=== PATIENT | male | born 1955 | race African-American/Black ===

== ENCOUNTER 2017-01-08 21:07 | Inpatient (IN) | payer SELFPAY ==
[~2017-01-08] VITALS: Ht 172.7 cm; Wt 61.0 kg
[~2017-01-08 21:07] MED LIST: TYLE3 PO; Z.0.NO CURRENT MEDS
[2017-01-08 21:12] VITALS: BP 112/64; PULSE 91; RESP 16; TEMP 99.1; O2SAT 96
--- NOTE | 2017-01-08 22:36 | PD ---
Physical Exam Time Seen by Provider: 22:36 Narrative 61 yo male with dysuria, "creamy discharge" from the urethra, increased urinary frequency, lower abdominal pain for one month. Vital signs reviewed. Seen at triage desk. Awaiting bed placement. Data Data Last Documented VS Vital Signs Date Time Temp Pulse Resp B/P Pulse Ox O2 Delivery O2 Flow Rate FiO2 01/08/17 21:12 99.1 91 16 112/64 96 Room Air [facility] Medical Record Reviewed: Yes Supervised Visit with SHAUNA: Jim Brown Jan 08, 2017 22:36
[2017-01-08 23:05] VITALS: BP 126/68; PULSE 92; RESP 18; O2SAT 94
[2017-01-09] VITALS (7 sets, daily range): BP systolic 119–135; BP diastolic 71–98; PULSE 84–96; RESP 18–20; TEMP 97.3–100.4; O2SAT 92–98
[2017-01-09 02:19] LABS: AUTOMATED NEUTROPHIL # 19.2 TH/MM3 (1.8-7.7); BASOPHIL # 0.1 TH/MM3 (0-0.2); BASOPHIL % 0.5 % (0.0-2.0); EOSINOPHIL % 0.2 % (0.0-4.0); HEMATOCRIT 35.7 % (39.0-51.0); HEMO FLAGS DIFF FINAL; LYMPH % 9.3 % (9.0-44.0); LYMPHOCYTE # 2.1 TH/MM3 (1.0-4.8); MEAN CORPUSCULAR HGB CONC 33.3 % (32.0-36.0); MONO % 5.1 % (0.0-8.0); NEUT % 84.9 % (16.0-70.0); PLATELET COUNT 625 TH/MM3 (150-450); RED BLOOD COUNT 3.72 MIL/MM3 (4.50-5.90); RED CELL DISTRIBUTION WIDTH 13.8 % (11.6-17.2); WHITE BLOOD COUNT 22.6 TH/MM3 (4.0-11.0)
[2017-01-09 02:39] LABS: ALKALINE PHOSPHATASE 90 U/L (45-117); TOTAL BILIRUBIN ADULT 0.9 MG/DL (0.2-1.0)
[2017-01-09 03:02] LABS: ALT (GPT) 14 U/L (12-78); ANION GAP 10 MEQ/L (5-15); AST (GOT) 17 U/L (15-37); BICARBONATE 26.2 MEQ/L (21.0-32.0); BLOOD UREA NITROGEN 31 MG/DL (7-18); CHLORIDE 96 MEQ/L (98-107); GLOMERULAR FILTRATION RATE 51 ML/MIN (>89); POTASSIUM 3.5 MEQ/L (3.5-5.1); SODIUM (NA) 132 MEQ/L (136-145)
[2017-01-09] MEDS ORDERED: IOHEXOL 350 MG/ML 10 ML VIAL (for RAD DIAG) IV ONE (03:50)
--- NOTE | 2017-01-09 04:03 | RADRPT ---
EXAM DATE/TIME: 01/09/2017 03:38 [facility] COMPARISON: No previous studies available for comparison. INDICATIONS : Left lower quadrant pain while urinating with penile discharge IV CONTRAST: 100 cc Omnipaque 350 (iohexol) IV ORAL CONTRAST: No oral contrast ingested. RADIATION DOSE: 9.96 CTDIvol (mGy) MEDICAL HISTORY : None SURGICAL HISTORY : None. ENCOUNTER: Initial ACUITY: 1 month PAIN SCALE: 9/10 LOCATION: Left lower quadrant abdomen TECHNIQUE: Volumetric scanning of the abdomen and pelvis was performed. Using automated exposure control and ad justment of the mA and/or kV according to patient size, radiation dose was kept as low as reasonably achievable to obtain optimal diagnostic quality images. DICOM format image data is available electro nically for review and comparison. FINDINGS: Mild lower lobe interstitial fibrotic changes. There are degenerative changes of the spine noted. Ath erosclerotic calcifications of the coronary arteries and aorta identified. There is severe hydronephr osis of both kidneys and hydroureter identified. The urinary bladder is markedly abnormal, distended with multiple diverticula and markedly trabeculated thick walled appearance. The largest diverticulum is on the right measuring 10.5 cm in cephalocaudal dimension with a 9.8 mm neck. The prostate is abn ormal, diffusely heterogeneous and enlarged measuring 5.6 x 4.4 cm in transverse and AP dimension. Th e small and large bowel are unremarkable. In the left upper quadrant there is a circumscribed hypoden se mass measuring 10.1 x 5.8 cm in transverse and AP dimension on axial image 26 measuring 38 Hounsfi eld units. This is noted just superior to the pancreas and demonstrating slight mass effect on the le sser curvature of the stomach. Coronal images suggest this is of pancreatic origin on coronal image 3 7. There are peripheral tiny calcifications noted. No obvious internal septations. The liver demonstr ates a low density lesion on image 34 with peripheral nodular enhancement. This measures 1.3 cm. CONCLUSION: 1. Severe hydronephrosis and hydroureter with a markedly abnormal heterogeneous thick walled trabecul ated urinary bladder. It is difficult to exclude a bladder malignancy given the markedly heterogeneou s appearance. For example a prominent area of thick trabeculated bladder wall is noted superiorly see n best on axial image 52 where a 5.3 x 4.6 cm masslike area is noted. 2. Extensive atherosclerotic disease. 3. Prominent heterogeneous prostate. 4. 5. Indeterminate cystic-appearing mass of the upper abdomen appears to arise from the pancreas with e xtrapancreatic component suggesting a large mildly complex cyst. There is some peripheral punctate ca lcification. Surgery should be considered for asymptomatic pancreatic cysts >3 cm, generally subsequ ent to aspiration. If the lesion is a cystadenoma, surgery is deferred until the cyst is > 4 cm. So lid pseudopapillary epithelial neoplasm tumors should be resected. Patient factors ultimately determ ine the appropriateness of surgical treatment. Reference: 6. [place] LL, Jolanta SG, Neftali RM et al; Managing Incidental Findings on Abdominal CT: Benedicto alcantara of the ACR Incidental Findings Committee. J Am Min Radiol 2010;7:754-773. Bienvenido Shaikh MD on January 09, 2017 at 3:53 Board Certified Radiologist. This report was verified electronically.
[2017-01-09 04:51] LABS: BACTERIA, URINE MANY /hpf; BLOOD, URINE MOD (NEG); COMMENT (UR) CULTURE INDICATED; CULTURE IF INDICATED CULTURE INDICATED; GLUCOSE,URINE NEG (NEG); KETONE, URINE NEG (NEG); MUCUS URINE MANY /lpf (OCC); NITRITE,URINE NEG (NEG); URINE COLOR YELLOW (YELLW/STRAW)
--- NOTE | 2017-01-09 04:56 | PD ---
HPI Chief Complaint: Complaint Time Seen by Provider: 02:03 Travel History International Travel<30 days: No Contact w/Intl Traveler<30days: No Traveled to known affect area: No History of Present Illness HPI Is a 61-year-old man, denies any past medical history, presents to the emergency department complaining with pain with urination for the past month, creamy discharge from his urethra, weight loss, chills and lower abdominal pain. Symptoms been worsening over the past day or so. He states he has to bear down to urinate. History Past Medical History Medical History: Denies Significant Hx Tetanus Vaccination: < 5 Years Influenza Vaccination: No Social History Alcohol Use: Yes (8 pack a day) Tobacco Use: Yes (1 PPD FOR 30 YEARS) Allergies-Medications (Allergen,Severity, Reaction): Coded Allergies: No Known Allergies (Verified , 01/09/17) Reported Meds & Prescriptions Reported Meds & Active Scripts Active No Active Prescriptions or Reported Medications Review of Systems Except as stated in HPI: all other systems reviewed are Neg Physical Exam Narrative GENERAL: 61-year-old man, thin, appears uncomfortable but nontoxic. SKIN: Focused skin assessment warm/dry. NECK: Trachea midline. No JVD. CARDIOVASCULAR: Regular rate and rhythm. No murmur appreciated. RESPIRATORY: No accessory muscle use. Clear to auscultation. Breath sounds equal bilaterally. GASTROINTESTINAL: Abdomen scaphoid and soft. Is palpable fullness in the lower abdomen with a palpable mass, possible urinary distention. MUSCULOSKELETAL: No obvious deformities. Decreased muscle bulk. No edema. PSYCHIATRIC: Appropriate mood and affect; insight and judgment normal. Data Data Last Documented VS Vital Signs Date Time Temp Pulse Resp B/P Pulse Ox O2 Delivery O2 Flow Rate FiO2 01/09/17 01:53 98 Room Air 01/08/17 21:12 99.1 91 16 112/64 Orders Urinalysis - C+S If Indicated (01/09/17 01:44) Complete Blood Count With Diff (01/09/17 01:44) Comprehensive Metabolic Panel (01/09/17 01:44) Iv Access Insert/Monitor (01/09/17 01:44) Oxygen Administration (01/09/17 01:44) Oximetry (01/09/17 01:44) Lipase (01/09/17 01:44) Ed Poc Ultrasound (01/09/17 ) Iv Access Insert/Monitor (01/09/17 03:05) Ct Abd/Pel W Iv Contrast(Rout) (01/09/17 ) Urinary Catheter Insert/Apply (01/09/17 03:12) Iohexol 350 Inj (Omnipaque 350 Inj) (01/09/17 03:50) Labs Laboratory Tests Test 01/09/17 01:50 White Blood Count 22.6 TH/MM3 Red Blood Count 3.72 MIL/MM3 Hemoglobin 11.9 GM/DL Hematocrit 35.7 % Mean Corpuscular Volume 96.0 FL Mean Corpuscular Hemoglobin 32.0 PG Mean Corpuscular Hemoglobin 33.3 % Concent Red Cell Distribution Width 13.8 % Platelet Count 625 TH/MM3 Mean Platelet Volume 8.4 FL Neutrophils (%) (Auto) 84.9 % Lymphocytes (%) (Auto) 9.3 % Monocytes (%) (Auto) 5.1 % Eosinophils (%) (Auto) 0.2 % Basophils (%) (Auto) 0.5 % Neutrophils # (Auto) 19.2 TH/MM3 Lymphocytes # (Auto) 2.1 TH/MM3 Monocytes # (Auto) 1.2 TH/MM3 Eosinophils # (Auto) 0.0 TH/MM3 Basophils # (Auto) 0.1 TH/MM3 CBC Comment DIFF FINAL Differential Comment Sodium Level 132 MEQ/L Potassium Level 3.5 MEQ/L Chloride Level 96 MEQ/L Carbon Dioxide Level 26.2 MEQ/L Anion Gap 10 MEQ/L Blood Urea Nitrogen 31 MG/DL Creatinine 1.67 MG/DL Estimat Glomerular Filtration 51 ML/MIN Rate Random Glucose 158 MG/DL Calcium Level 9.5 MG/DL Total Bilirubin 0.9 MG/DL Aspartate Amino Transf 17 U/L (AST/SGOT) Alanine Aminotransferase 14 U/L (ALT/SGPT) Alkaline Phosphatase 90 U/L Total Protein 10.1 GM/DL Albumin 3.4 GM/DL Lipase 155 U/L [facility] Medical Decision Making Medical Screen Exam Complete: Yes Emergency Medical Condition: Yes Interpretation(s) LABS: CBC is remarkable for white count 22,000, hemoglobin 11.9 CMP is remarkable for elevated BUN/creatinine 31, 1.67, total protein 7.1 Lipase is [address]: Severe hydronephrosis and hydroureter with markedly abnormal heterogenous thick-walled trabeculated urinary bladder. Mass area in the superior aspect. Prominent heterogenous prostate. Cystic mass in the upper abdomen appears to rest of the pancreas Differential Diagnosis Urinary retention, infection, mass, other Narrative Course Medical decision making 61-year-old man, with constitutional symptoms going weight loss or night sweats , with bladder difficulties. On point of care ultrasound [id number] son the bladder is markedly abnormal with septations and thickened pimentel. This confirmed on CT scan. He also has hydronephrosis. Is able to void in the ED but still is obviously some element of retention. We are unable to pass a Cortes catheter. I spoke with Dr. Carrera, urology, and the patient can be evaluated minimal in the morning. Patient resting comfortably in bed. Procedures Procedure Narrative Point of care ultrasound: Focus transabdominal ultrasounds perform immediate the bedside to evaluate for urinary distention. Large urinary bladder was seen with markedly abnormal appearance of the bladder with septations, and thickened wall. Diagnosis Primary Impression: Bladder mass Additional Impression: Urinary retention Scripts No Active Prescriptions or Reported Meds Jonh Phillips MD Jan 09, 2017 04:56
[2017-01-09] MEDS ORDERED: cefTRIAXone INJ 1,000 MG in SODIUM CHLORIDE 0.9% INJ 100 ML IV ONE (05:00)
[2017-01-09] MEDS ORDERED: NALOXONE HCL 0.4 MG/ML AMP IV PRN (05:00)
[2017-01-09] MEDS ORDERED: SODIUM CHLORIDE 0.9% FLUSH 10 ML FLUSH IV FLUSH PRN (05:00)
--- NOTE | 2017-01-09 05:04 | HHI.HP ---
[facility] Primary Care Physician Admission Diagnosis bladder mass, urinary retention Diagnoses: (1) Bladder mass (2) Urinary retention Chief Complaint: suprapubic pain, hematuria Travel History International Travel<30 Days: No Contact w/Intl Traveler <30 Da: No Traveled to Known Affected Are: No History of Present Illness Written by Lexi Otoole, acting as scribe for Dr. Castellanos on 01/09/17 at 05:06. Patient reports severe suprapubic pain that has been present for one month which progressively worsened. He reports milky discharge from penis and hematuria. He has also been experiencing shortness of breath, intermittent dizziness, he has lost 50 lbs in the past 3 - 4 months with loss of appetite, and odynophagia. Denies n/v/diarrhea, black or red stool. Review of Systems Except as stated in HPI: all other systems reviewed are Neg Past Family Social History Past Medical History Denies any medical problems . Past Surgical History right shoulder repair . Reported Medications Reported Meds & Active Scripts Active No Active Prescriptions or Reported Medications . 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 Ordered Medications Current Medications Iohexol (Omnipaque 350 Inj) 100 ml STK-MED ONCE IV Last administered on 03:50; Start 01/09/17 at 03:50; Stop 01/09/17 at 03:51; Status DC Sodium Chloride (NS Flush) 2 ml UNSCH PRN IV FLUSH FLUSH AFTER USING IV ACCESS ; Start 01/09/17 at 05:00 Sodium Chloride (NS Flush) 2 ml BID IV FLUSH ; Start 01/09/17 at 09:00 Naloxone HCl 0.4 mg 0.4 mg UNSCH PRN IV SEE LABEL COMMENTS; Start 01/09/17 at 05:00 Ceftriaxone Sodium 1000 mg/ Sodium Chloride 100 ml @ 200 mls/hr ONCE ONCE IV Last administered on 01/09/17 05:02; Start 01/09/17 at 05:00; Stop 01/09/17 at 05:29 Ciprofloxacin/ Dextrose (Cipro 400 Mg Premix) 200 ml @ 200 mls/hr Q12H IV ; Start 01/09/17 at 05:00 . Family History Hypertension and diabetes mellitus in family Father from colon cancer Social History Tobacco: smokes 1 PPD - smoking for more than 30 years Alcohol: 8 pack per day - last alcohol was day before yesterday Illicit drugs: Marijuana, cocaine (last used one month ago), denies IVDA . Physical Exam Vital Signs Vital Signs Date Time Temp Pulse Resp B/P Pulse Ox O2 Delivery O2 Flow Rate FiO2 01/09/17 01:53 98 Room Air 01/09/17 01:53 98 Room Air 01/08/17 21:12 99.1 91 16 112/64 96 Room Air Physical Exam GENERAL: This is a frail, thin older male patient, in no apparent distress. SKIN: No rashes, ecchymoses or lesions. Cool and dry. HEAD: Atraumatic. Normocephalic. EYES: No scleral icterus. No injection or drainage. ENT: Nose without bleeding, purulent drainage. NECK: Trachea midline. No JVD or lymphadenopathy. CARDIOVASCULAR: Regular rate and rhythm without murmurs, gallops, or rubs. RESPIRATORY: Clear to auscultation. Breath sounds equal bilaterally. No wheezes , rales, or rhonchi. GASTROINTESTINAL: Abdomen soft, non-tender, nondistended. No guarding. GENITOURINARY: suprapubic tenderness with palpation MUSCULOSKELETAL: Extremities without cyanosis, or edema. No calf tenderness. Extensive clubbing noted. NEUROLOGICAL: Awake and alert. Motor and sensory grossly within normal limits. Normal speech. . Laboratory Laboratory Tests Test 01/09/17 01/09/17 01:50 04:26 White Blood Count 22.6 Red Blood Count 3.72 Hemoglobin 11.9 Hematocrit 35.7 Mean Corpuscular Volume 96.0 Mean Corpuscular Hemoglobin 32.0 Mean Corpuscular Hemoglobin 33.3 Concent Red Cell Distribution Width 13.8 Platelet Count 625 Mean Platelet Volume 8.4 Neutrophils (%) (Auto) 84.9 Lymphocytes (%) (Auto) 9.3 Monocytes (%) (Auto) 5.1 Eosinophils (%) (Auto) 0.2 Basophils (%) (Auto) 0.5 Neutrophils # (Auto) 19.2 Lymphocytes # (Auto) 2.1 Monocytes # (Auto) 1.2 Eosinophils # (Auto) 0.0 Basophils # (Auto) 0.1 CBC Comment DIFF FINAL Differential Comment Sodium Level 132 Potassium Level 3.5 Chloride Level 96 Carbon Dioxide Level 26.2 Anion Gap 10 Blood Urea Nitrogen 31 Creatinine 1.67 Estimat Glomerular Filtration 51 Rate Random Glucose 158 Calcium Level 9.5 Total Bilirubin 0.9 Aspartate Amino Transf 17 (AST/SGOT) Alanine Aminotransferase 14 (ALT/SGPT) Alkaline Phosphatase 90 Total Protein 10.1 Albumin 3.4 Lipase 155 Urine Color YELLOW Urine Turbidity CLOUDY Urine pH 8.0 Urine Specific [place] 1.009 Urine Protein 100 Urine Glucose (UA) NEG Urine Ketones NEG Urine Occult Blood MOD Urine Nitrite NEG Urine Bilirubin NEG Urine Urobilinogen LESS THAN 2.0 Urine Leukocyte Esterase LARGE Urine RBC 15 Urine WBC Urine WBC Clumps MOD Urine Bacteria MANY Urine Mucus MANY Microscopic Urinalysis Comment CULTURE INDICATED Date/Time Procedure Status Source Growth 01/09/17 04:26 Urine Culture Received Urine Clean Catch Pending Result Diagram: 01/09/17 0150 01/09/17 0150 Imaging Last Impressions Abdomen/Pelvis CT 01/09/17 0000 Signed Impressions: Service Date/Time: Monday, January 09, 2017 03:38 - CONCLUSION: 1. Severe hydronephrosis and hydroureter with a markedly abnormal heterogeneous thick walled trabeculated urinary bladder. It is difficult to exclude a bladder malignancy given the markedly heterogeneous appearance. For example a prominent area of thick trabeculated bladder wall is noted superiorly seen best on axial image 52 where a 5.3 x 4.6 cm masslike area is noted. 2. Extensive atherosclerotic disease. 3. Prominent heterogeneous prostate. 4. 5. Indeterminate cystic-appearing mass of the upper abdomen appears to arise from the pancreas with extrapancreatic component suggesting a large mildly complex cyst. There is some peripheral punctate calcification. Surgery should be considered for asymptomatic pancreatic cysts >3 cm, generally subsequent to aspiration. If the lesion is a cystadenoma, surgery is deferred until the cyst is > 4 cm. Solid pseudopapillary epithelial neoplasm tumors should be resected. Patient factors ultimately determine the appropriateness of surgical treatment. Reference: 6. Juaniat LL, Jolanta SG, Neftali RM et al; Managing Incidental Findings on Abdominal CT: White Paper of the ACR Incidental Findings Committee. J Am Min Radiol 2010;7:754-773. Bienvenido Shaikh MD Assessment and Plan Problem List: (1) Bladder mass ICD Code: N32.89 Status: Acute (2) Urinary retention ICD Code: R33.9 Status: Acute Assessment and Plan 61 y/o male with no significant medical history who presented to the ED for suprapubic pain, hematuria, and penile discharge with bladder mass found on abdominal/pelvis CT with IV contrast. Urinary Retention Bladder Mass - consult urology - Dr. Carrera aware - appreciate assistance - continuous cardiac telemetry - case management for discharge planning Leukocytosis with neutrophilia - likely secondary to UTI - u/a c/w UTI - Ciprofloxacin 400 mg IV q12h - check CXR Odynophagia with weight loss - suspect possible GI malignancy - consult gastroenterology - appreciate assistance - Protonix 40 mg IV q12h DVT prophylaxis - SCDs/TEDs . This note was transcribed by ebony [Lexi Otoole]. I, Dr. Darius Castellanos personally performed the history, physical exam, and medical decision making; and confirmed the accuracy of the information in the transcribed note. Authenticated by Dr. Darius Castellanos on 01/09/17 at 05:06. Discussed Condition With ER physician, RN, and patient Physician Certification 2 Midnight Certification Type: Admission for Inpatient Services Order for Inpatient Services The services are ordered in accordance with Medicare regulations or non- Medicare payer requirements, as applicable. In the case of services not specified as inpatient-only, they are appropriately provided as inpatient services in accordance with the 2-midnight benchmark. Estimated LOS (days): 3 days is the estimated time the patient will need to remain in the hospital, assuming treatment plan goals are met and no additional complications. Post-Hospital Plan: Home Lexi Otoole Jan 09, 2017 05:04 Darius Castellanos MD Jan 28, 2017 00:42
[2017-01-09] MEDS: CIPROFLOXACIN 400 MG PREMIX 200 ML IV SCH ×2 (05:53→17:35)
--- NOTE | 2017-01-09 06:01 | RADRPT ---
EXAM DATE/TIME: 01/09/2017 05:30 [facility] COMPARISON: No previous studies available for comparison. INDICATIONS : Shortness of breath, LLQ pain with urination. MEDICAL HISTORY : None. SURGICAL HISTORY : None. ENCOUNTER: Initial ACUITY: 1 day PAIN SCORE: 6/10 LOCATION: Bilateral chest FINDINGS: A single view of the chest demonstrates the lungs to be symmetrically aerated without evidence of mas s, infiltrate or effusion. The cardiomediastinal contours are unremarkable. Osseous structures are intact. CONCLUSION: No acute disease. Bienvenido Shaikh MD on January 09, 2017 at 5:59 Board Certified Radiologist. This report was verified electronically.
[2017-01-09] MEDS: PANTOPRAZOLE SODIUM 40 MG VIAL IV PUSH SCH ×2 (07:57→20:24)
[2017-01-09] MEDS: SODIUM CHLORIDE 0.9% FLUSH 10 ML FLUSH IV FLUSH SCH ×2 (07:57→20:24)
[2017-01-09] MEDS ORDERED: fentaNYL CITRATE 250 MCG/5 ML AMP ONE (08:49)
--- NOTE | 2017-01-09 09:06 | PD.CONS ---
HPI Service Urology Consult Requested By Reason for Consult Urinary retention Primary Care Physician No Primary Care Physician Diagnosis: (1) Bladder mass ICD Code: N32.89 (2) Urinary retention ICD Code: R33.9 History of Present Illness 61-year-old gentleman with no prior urologic history who presented to the emergency room complaining of suprapubic pain and a milky discharge from his penis. Other symptoms include weight loss of 50 pounds over the past several months, dizziness and shortness of breath. Pulmonary workup in the emergency room included a CT scan which demonstrated a markedly distended urinary bladder with cystic changes and thickening along with bilateral hydroureteronephrosis. Attempts were made to pass a Cortes catheter in the emergency room without success and a urology consult was subsequently placed. The time of consultation the patient reported that the past several months he has been having increased difficulty voiding and needed to strain to expel small amounts of urine. He denies any problems with his prostate or any other urologic pathology. Review of Systems Constitutional: COMPLAINS OF: Weight loss (50 pounds over the past several months), DENIES: Fever, Night Sweats Cardiovascular: DENIES: Chest pain Gastrointestinal: COMPLAINS OF: Abdominal pain (lower) Genitourinary: COMPLAINS OF: Urinary frequency, Urgency, Dysuria, Nocturia, DENIES: Hematuria Neurologic: COMPLAINS OF: Poor Balance Except as stated in HPI: all other systems reviewed are Neg Past Family Social History Past Medical History Denies Past Surgical History Status post surgery to his right shoulder Reported Medications None Allergies: Coded Allergies: No Known Allergies (Verified , 01/09/17) Active Ordered Medications Refer to EMR Family History Hypertension Diabetes mellitus Colon cancer Social History Smoker one pack per day for more than 30 years Moderate daily alcohol use Admits to use of marijuana and cocaine but denies IVDA Physical Exam Vital Signs Date Time Temp Pulse Resp B/P Pulse Ox O2 Delivery O2 Flow Rate FiO2 01/09/17 08:24 97/60 01/09/17 07:26 100.4 96 18 120/71 95 01/09/17 05:24 95 18 124/83 94 Room Air 01/09/17 01:53 98 Room Air 01/09/17 01:53 98 Room Air 01/09/17 01:41 91 20 135/98 94 Nasal Cannula 01/08/17 23:05 92 18 126/68 94 Nasal Cannula 01/08/17 21:12 99.1 91 16 112/64 96 Room Air Physical Exam GENERAL: Appears cachectic and all events stated age. SKIN: No rashes, ecchymoses or lesions. Cool and dry. HEAD: Atraumatic. Normocephalic. No temporal or scalp tenderness. EYES: Pupils equal round and reactive. Extraocular motions intact. No scleral icterus. No injection or drainage. ENT: Nose without bleeding, purulent drainage or septal hematoma. Throat without erythema, tonsillar hypertrophy or exudate. Uvula midline. Airway patent. NECK: Trachea midline. No JVD or lymphadenopathy. Supple, nontender, no meningeal signs. CARDIOVASCULAR: Regular rate and rhythm without murmurs, gallops, or rubs. RESPIRATORY: Clear to auscultation. Breath sounds equal bilaterally. No wheezes , rales, or rhonchi. GASTROINTESTINAL: Abdomen soft, non-tender, nondistended. No hepato-splenomegaly , or palpable masses. No guarding. GENITOURINARY: Bladder markedly distended. No CVA tenderness. Normal phallus, testes bilaterally descended. Digital rectal exam revealed a prostate of approximately 30 g smooth without any palpable nodules or induration. MUSCULOSKELETAL: Extremities without clubbing, cyanosis, or edema. No joint tenderness, effusion, or edema noted. No calf tenderness. Negative Homans sign bilaterally. NEUROLOGICAL: Awake and alert. Cranial nerves II through XII intact. Motor and sensory grossly within normal limits. Five out of 5 muscle strength in all muscle groups. Normal speech. Laboratory Tests Test 01/09/17 01/09/17 01:50 04:26 White Blood Count 22.6 Red Blood Count 3.72 Hemoglobin 11.9 Hematocrit 35.7 Mean Corpuscular Volume 96.0 Mean Corpuscular Hemoglobin 32.0 Mean Corpuscular Hemoglobin 33.3 Concent Red Cell Distribution Width 13.8 Platelet Count 625 Mean Platelet Volume 8.4 Neutrophils (%) (Auto) 84.9 Lymphocytes (%) (Auto) 9.3 Monocytes (%) (Auto) 5.1 Eosinophils (%) (Auto) 0.2 Basophils (%) (Auto) 0.5 Neutrophils # (Auto) 19.2 Lymphocytes # (Auto) 2.1 Monocytes # (Auto) 1.2 Eosinophils # (Auto) 0.0 Basophils # (Auto) 0.1 CBC Comment DIFF FINAL Differential Comment Sodium Level 132 Potassium Level 3.5 Chloride Level 96 Carbon Dioxide Level 26.2 Anion Gap 10 Blood Urea Nitrogen 31 Creatinine 1.67 Estimat Glomerular Filtration 51 Rate Random Glucose 158 Calcium Level 9.5 Total Bilirubin 0.9 Aspartate Amino Transf 17 (AST/SGOT) Alanine Aminotransferase 14 (ALT/SGPT) Alkaline Phosphatase 90 Total Protein 10.1 Albumin 3.4 Lipase 155 Urine Color YELLOW Urine Turbidity CLOUDY Urine pH 8.0 Urine Specific [place] 1.009 Urine Protein 100 Urine Glucose (UA) NEG Urine Ketones NEG Urine Occult Blood MOD Urine Nitrite NEG Urine Bilirubin NEG Urine Urobilinogen LESS THAN 2.0 Urine Leukocyte Esterase LARGE Urine RBC 15 Urine WBC Urine WBC Clumps MOD Urine Bacteria MANY Urine Mucus MANY Microscopic Urinalysis Comment CULTURE INDICATED Date/Time Procedure Status Source Growth 01/09/17 04:26 Urine Culture Received Urine Clean Catch Pending Result Diagram: 01/09/17 0150 01/09/17 0150 Imaging Last Impressions Chest X-Ray 01/09/17 0000 Signed Impressions: Service Date/Time: Monday, January 09, 2017 05:30 - CONCLUSION: No acute disease. Bienvenido Shaikh MD Abdomen/Pelvis CT 01/09/17 0000 Signed Impressions: Service Date/Time: Monday, January 09, 2017 03:38 - CONCLUSION: 1. Severe hydronephrosis and hydroureter with a markedly abnormal heterogeneous thick walled trabeculated urinary bladder. It is difficult to exclude a bladder malignancy given the markedly heterogeneous appearance. For example a prominent area of thick trabeculated bladder wall is noted superiorly seen best on axial image 52 where a 5.3 x 4.6 cm masslike area is noted. 2. Extensive atherosclerotic disease. 3. Prominent heterogeneous prostate. 4. 5. Indeterminate cystic-appearing mass of the upper abdomen appears to arise from the pancreas with extrapancreatic component suggesting a large mildly complex cyst. There is some peripheral punctate calcification. Surgery should be considered for asymptomatic pancreatic cysts >3 cm, generally subsequent to aspiration. If the lesion is a cystadenoma, surgery is deferred until the cyst is > 4 cm. Solid pseudopapillary epithelial neoplasm tumors should be resected. Patient factors ultimately determine the appropriateness of surgical treatment. Reference: 6. Juanita LL, Jolanta SG, Neftali RM et al; Managing Incidental Findings on Abdominal CT: White Paper of the ACR Incidental Findings Committee. J Am Min Radiol 2010;7:754-773. Bienvenido Shaikh MD CT scan images reviewed and concur with the radiologist's impression Assessment and Plan Assessment and Plan Urologic impression: #1 bilateral hydroureteronephrosis secondary to bladder outlet obstruction #2 markedly distended bladder with thickening and cystic changes consistent with chronic obstruction #3 rule out obstruction from BPH versus prostate cancer versus urethral stricture formation Plan: #1 keep patient nothing by mouth #2 bring patient to the operating room suite this morning for cystoscopy, possible direct visual internal urethrotomy, possible bladder biopsy and insertion of Cortes catheter. #3 further recommendations pending cystoscopic findings Eduardo Carrera MD Jan 09, 2017 09:06
[2017-01-09] MEDS ORDERED: FAMOTIDINE 20 MG/2 ML VIAL ONE (09:07)
--- NOTE | 2017-01-09 10:30 | PD.OP ---
Operative Report Date of Surgery: Jan 09, 2017 Preoperative Diagnosis: (1) Urinary retention Postoperative Diagnosis: (1) Urinary retention (2) Urethral stricture Procedure: Examination under anesthesia, cystoscopy and direct visual internal urethrotomy of 2 bulbar urethral strictures Anesthesia: General Surgeon: Eduardo Carrera Pocketed Spring Assembler(s): None Operation and Findings: Indication for procedure: 61-year-old gentleman who presented to the emergency room with difficulty voiding and lower abdominal pain. Attempts to pass Cortes were not successful. Imaging studies include a CT scan which demonstrated a markedly distended urinary bladder and bilateral hydroureteronephrosis. Presents now for further urologic workup and management to include cystoscopy, possible direct visual internal urethrotomy and possible bladder biopsies. Operative procedure in detail: Patient was brought to the operating suite and placed supine on the cystoscopy table. He was next placed under general anesthesia. He was then repositioned in the dorsolithotomy position and prepped and draped in normal sterile fashion. After an appropriate timeout was undertaken proceeded with cystoscopic evaluation utilizing the rigid cystoscope with the 30 lens and 20 Persian sheath. I was only able to advance the scope up to the point of the bulbar urethra and a circumferential urethral stricture was encountered precluding further passage of the cystoscope. The cystoscope was exchanged for the direct visual internal urethrotome with the straight blade and a direct visual internal urethrotomy procedure was performed by cutting at the 12 o'clock position at the stricture site. The stricture opened well and further advancement of the scope revealed an additional stricture with only a pinpoint size opening. The cystoscope was reintroduced and a sensor 0.035 wire was advanced through the small opening and further advanced into urinary bladder under fluoroscopic guidance. The cystoscope was once again exchanged for the direct visual internal urethrotome and the secondary stricture was opened again by cutting at 12 o'clock position. The location of this second stricture was very close to the external urinary sphincter. The cystoscope was once again reintroduced and cystoscopy completed. The prostatic urethra was nonobstructing and further passive cystoscope within the urinary bladder revealed a markedly trabeculated bladder with multiple diverticula noted. No discrete bladder tumors were seen. It was difficult to confirm the location of the ureteral orifices due to the bladder wall changes. The cystoscope was withdrawn and a 20 Persian platinum Cortes catheter was advanced over the previously inserted wire into the urinary bladder without difficulty. The catheter was placed to gravity drainage. I next proceeded with an examination under anesthesia and the patient's prostate was approximately 30 g and smooth without any induration or palpable nodules. Patient tolerated the procedures without complications and was transferred to the PACU in satisfactory condition. Plan: #1 patient may be discharged home with the indwelling Cortes when medically stable #2 patient should follow up at my office in one week to have his Cortes catheter removed for a voiding trial. Eduardo Carrera MD Jan 09, 2017 10:30
[2017-01-09] MEDS ORDERED: DO NOT ADM ANY ANTICOAGULANT DRUGS PRN (10:33)
[2017-01-09] MEDS ORDERED: HYDROmorphone HCL PF 1 MG/ML VIAL IV PUSH PRN (11:00)
[2017-01-09] MEDS: SODIUM CHLOR 0.9% 1000 ML INJ 1,000 ML IV SCH (11:30)
[2017-01-09] MEDS ORDERED: PROPOFOL 200 MG/20 ML AMP IV ONE (12:00)
[2017-01-09] MEDS ORDERED: NEOSTIGMINE 3 MG/3 ML SYR IV ONE (12:00)
[2017-01-09] MEDS ORDERED: LACTATED RINGER'S 1000 ML INJ 1,000 ML IV ONE (12:00)
[2017-01-09] MEDS ORDERED: ONDANSETRON HCL 4 MG/2 ML VIAL IV PUSH ONE (12:00)
[2017-01-09] MEDS ORDERED: PHENYLEPH/NS 1000 MCG/10 ML SYR IV ONE (12:00)
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
[2017-01-10] VITALS (7 sets, daily range): BP systolic 98–120; BP diastolic 66–75; PULSE 64–80; RESP 17–20; TEMP 97–97.9; O2SAT 93–96
[2017-01-10] MEDS: SODIUM CHLOR 0.9% 1000 ML INJ 1,000 ML IV SCH (04:57)
[2017-01-10] MEDS: CIPROFLOXACIN 400 MG PREMIX 200 ML IV SCH ×2 (04:57→16:26)
[2017-01-10 06:56] LABS: AUTOMATED NEUTROPHIL # 15.6 TH/MM3 (1.8-7.7); BASOPHIL % 0.2 % (0.0-2.0); EOSINOPHIL % 0.2 % (0.0-4.0); HEMATOCRIT 30.5 % (39.0-51.0); HEMO FLAGS DIFF FINAL; LYMPH % 8.9 % (9.0-44.0); LYMPHOCYTE # 1.6 TH/MM3 (1.0-4.8); MEAN CELL VOLUME 96.2 FL (80.0-100.0); MEAN CORPUSCULAR HEMOGLOBIN 32.3 PG (27.0-34.0); MEAN CORPUSCULAR HGB CONC 33.6 % (32.0-36.0); MONO % 6.6 % (0.0-8.0); NEUT % 84.1 % (16.0-70.0); PLATELET COUNT 509 TH/MM3 (150-450); RED BLOOD COUNT 3.17 MIL/MM3 (4.50-5.90); RED CELL DISTRIBUTION WIDTH 13.9 % (11.6-17.2); WHITE BLOOD COUNT 18.5 TH/MM3 (4.0-11.0)
[2017-01-10 07:04] LABS: BICARBONATE 27.1 MEQ/L (21.0-32.0); POTASSIUM 3.4 MEQ/L (3.5-5.1)
[2017-01-10] MEDS: SODIUM CHLORIDE 0.9% FLUSH 10 ML FLUSH IV FLUSH SCH ×2 (08:56→20:35)
[2017-01-10] MEDS: PANTOPRAZOLE SODIUM 40 MG VIAL IV PUSH SCH ×2 (08:56→20:35)
--- NOTE | 2017-01-10 10:43 | EKG ---
Date Performed: 01/09/2017 Time Performed: 08:32:34 PTAGE: 61 years EKG: Sinus rhythm WITH FREQUENT VENTRICULAR PREMATURE COMPLEXES SEPTAL MYOCARDIAL INFARCTION , OF INDETERMINATE AGE AB NORMAL ECG NO PREVIOUS TRACING DOCTOR: Jonh Rodriguez Interpretating Date/Time 01/10/2017 10:41:52
[2017-01-10] MEDS ORDERED: POTASSIUM CHLORIDE 25 MEQ EFFERVESCENT TAB PO ONE (13:15)
--- NOTE | 2017-01-10 13:17 | HHI.PR ---
Subjective Remarks The patient says he has not had a bowel movement in quite a long time. He did not complain of pain or shortness of breath. He said he was urinating better. Discussed with nursing. Objective Vitals Vital Signs Date Time Temp Pulse Resp B/P Pulse Ox O2 Delivery O2 Flow Rate FiO2 01/10/17 12:00 97.8 65 18 120/72 96 01/10/17 08:00 97.9 67 18 110/75 95 01/10/17 08:00 93 2.00 01/10/17 04:00 97.5 72 17 98/66 96 01/10/17 00:00 97.0 69 18 114/74 96 01/09/17 20:00 97.3 84 20 119/84 96 01/09/17 20:00 96 Nasal Cannula 2.00 01/09/17 18:28 92 Nasal Cannula 2.00 01/09/17 16:16 92 Nasal Cannula 2.00 01/09/17 16:00 97.7 95 18 128/72 92 I/O 01/09/17 01/09/17 01/09/17 01/10/17 01/10/17 01/10/17 07:00 15:00 23:00 07:00 15:00 23:00 Intake Total 1870 ml 1443 ml 835 ml 120 ml Output Total 2250 ml 1900 ml 950 ml Balance -380 ml -457 ml -115 ml 120 ml Intake Oral 120 ml 900 ml 240 ml 120 ml IV Total 350 ml 543 ml 595 ml Other 1400 ml Output Urine Total 1400 ml 1900 ml 950 ml Estimated Blood Loss 50 ml Other 800 ml # Bowel Movements 0 Result Diagram: 01/10/17 0450 01/10/17 0450 Imaging Last Impressions Chest X-Ray 01/09/17 0000 Signed Impressions: Service Date/Time: Monday, January 09, 2017 05:30 - CONCLUSION: No acute disease. Bienvenido Shaikh MD Abdomen/Pelvis CT 01/09/17 0000 Signed Impressions: Service Date/Time: Monday, January 09, 2017 03:38 - CONCLUSION: 1. Severe hydronephrosis and hydroureter with a markedly abnormal heterogeneous thick walled trabeculated urinary bladder. It is difficult to exclude a bladder malignancy given the markedly heterogeneous appearance. For example a prominent area of thick trabeculated bladder wall is noted superiorly seen best on axial image 52 where a 5.3 x 4.6 cm masslike area is noted. 2. Extensive atherosclerotic disease. 3. Prominent heterogeneous prostate. 4. 5. Indeterminate cystic-appearing mass of the upper abdomen appears to arise from the pancreas with extrapancreatic component suggesting a large mildly complex cyst. There is some peripheral punctate calcification. Surgery should be considered for asymptomatic pancreatic cysts >3 cm, generally subsequent to aspiration. If the lesion is a cystadenoma, surgery is deferred until the cyst is > 4 cm. Solid pseudopapillary epithelial neoplasm tumors should be resected. Patient factors ultimately determine the appropriateness of surgical treatment. Reference: 6. [place] LL, Jolanta SG, Neftali RM et al; Managing Incidental Findings on Abdominal CT: White Paper of the ACR Incidental Findings Committee. J Am Min Radiol 2010;7:754-773. Bienvenido Shaikh MD Objective Remarks GENERAL: This is a frail, thin older male patient, in no apparent distress. SKIN: No rashes, ecchymoses or lesions. Cool and dry. HEAD: Atraumatic. Normocephalic. EYES: No scleral icterus. No injection or drainage. ENT: Nose without bleeding, purulent drainage. NECK: Trachea midline. No JVD or lymphadenopathy. CARDIOVASCULAR: Regular rate and rhythm without murmurs, gallops, or rubs. RESPIRATORY: Clear to auscultation. Breath sounds equal bilaterally. No wheezes , rales, or rhonchi. GASTROINTESTINAL: Abdomen soft, tender in the LLQ, nondistended. No guarding. Decreased bowel sounds. GENITOURINARY: Suprapubic tenderness with palpation. Cortes with dark yellow urine. MUSCULOSKELETAL: Extremities without cyanosis, or edema. Extensive clubbing noted. NEUROLOGICAL: Awake and alert. Motor and sensory grossly within normal limits. Normal speech. PSYCH: Slightly flattened affect. Procedures cystoscopy and direct visual internal urethrotomy of 2 bulbar urethral strictures Medications and IVs Current Medications Medications (Trade) Dose Ordered Sig/David Route Start Time Stop Time Status Last Admin (NS Flush) 2 ml UNSCH PRN IV FLUSH 01/09/17 05:00 (NS Flush) 2 ml BID IV FLUSH 01/09/17 09:00 01/10/17 08:56 Naloxone HCl 0.4 mg 0.4 mg UNSCH PRN IV 01/09/17 05:00 (Cipro 400 Mg Premix) 200 ml @ 200 mls/hr Q12H IV 01/09/17 05:00 01/10/17 04:57 (Protonix Inj) 40 mg Q12H IV PUSH 01/09/17 09:00 01/10/17 08:56 (K-Lyte Cl Eff) 50 meq ONCE ONCE PO 01/10/17 13:15 01/10/17 13:16 UNV A/P Problem List: (1) Bladder mass ICD Code: N32.89 Status: Acute (2) Urinary retention ICD Code: R33.9 Status: Acute Assessment and Plan Urinary Retention/ Bladder Mass/ Leukocytosis Presented to the ED for suprapubic pain, hematuria, and penile discharge with bladder mass found on abdominal/pelvis CT with IV contrast. Urology consult appreciated. The pt is s/p cystoscopy and direct visual internal urethrotomy of 2 bulbar urethral strictures. - continue IV Cipro and follow urine culture. - follow up with urology. Continue Cortes. Odynophagia with weight loss/ Pancreatic mass Suspect possible GI malignancy. Gastroenterology consult appreciated. - Protonix 40 mg IV q12h. - EGD/ Colonoscopy on Thursday per GI. May need EUS. Acute respiratory insufficiency The pt has been requiring oxygen. CXR unremarkable. - oxygen and nebs as needed. Anemia May be dilutional. - follow CBC. - GI work-up in progress. DVT prophylaxis: SCDs Discharge Planning Awaiting further evaluation Momo Moulton DO Jan 10, 2017 13:17
[2017-01-10] MEDS ORDERED: BISACODYL 10 MG SUPP RECTAL ONE (13:30)
[2017-01-10] MEDS ORDERED: SODIUM CHLOR 0.9% 1000 ML INJ 1,000 ML IV SCH (13:30)
[2017-01-10] MEDS ORDERED: RESP: ALBUTEROL 2.5 MG/IPRATROPIUM 0.5 MG NEB (SCH) NEB ONE (13:45)
[2017-01-10] MEDS ORDERED: RESP: ALBUTEROL 2.5 MG/IPRATROPIUM 0.5 MG NEB (PRN) NEB (13:45)
[2017-01-10] MEDS: MAGNESIUM HYDROXIDE SUSP 30 ML CUP PO SCH (16:25)
[2017-01-10] MEDS: DOCUSATE SODIUM 100 MG CAP PO SCH ×2 (16:25→20:35)
--- NOTE | 2017-01-10 16:38 | HHI.GIFU ---
Subjective Remarks Pt resting in bed in no apparent distress. Admits mild nausea. Says he can't eat b/c nobody will bring him food. (Mei Galeas) Objective Vitals I&O Vital Signs Date Time Temp Pulse Resp B/P Pulse Ox O2 Delivery O2 Flow Rate FiO2 01/10/17 16:00 97.8 64 20 106/70 96 01/10/17 13:45 65 01/10/17 12:00 97.8 65 18 120/72 96 01/10/17 08:00 97.9 67 18 110/75 95 01/10/17 08:00 93 2.00 01/10/17 04:00 97.5 72 17 98/66 96 01/10/17 00:00 97.0 69 18 114/74 96 01/09/17 20:00 97.3 84 20 119/84 96 01/09/17 20:00 96 Nasal Cannula 2.00 01/09/17 18:28 92 Nasal Cannula 2.00 I/O 01/09/17 01/09/17 01/09/17 01/10/17 01/10/17 01/10/17 07:00 15:00 23:00 07:00 15:00 23:00 Intake Total 1870 ml 1443 ml 835 ml 600 ml Output Total 2250 ml 1900 ml 950 ml 1200 ml Balance -380 ml -457 ml -115 ml -600 ml Intake Oral 120 ml 900 ml 240 ml 600 ml IV Total 350 ml 543 ml 595 ml Other 1400 ml Output Urine Total 1400 ml 1900 ml 950 ml 1200 ml Estimated Blood Loss 50 ml Other 800 ml # Bowel Movements 0 0 Laboratory Laboratory Tests Test 01/10/17 04:50 White Blood Count 18.5 Red Blood Count 3.17 Hemoglobin 10.2 Hematocrit 30.5 Mean Corpuscular Volume 96.2 Mean Corpuscular Hemoglobin 32.3 Mean Corpuscular Hemoglobin 33.6 Concent Red Cell Distribution Width 13.9 Platelet Count 509 Mean Platelet Volume 8.0 Neutrophils (%) (Auto) 84.1 Lymphocytes (%) (Auto) 8.9 Monocytes (%) (Auto) 6.6 Eosinophils (%) (Auto) 0.2 Basophils (%) (Auto) 0.2 Neutrophils # (Auto) 15.6 Lymphocytes # (Auto) 1.6 Monocytes # (Auto) 1.2 Eosinophils # (Auto) 0.0 Basophils # (Auto) 0.0 CBC Comment DIFF FINAL Differential Comment Sodium Level 138 Potassium Level 3.4 Chloride Level 101 Carbon Dioxide Level 27.1 Anion Gap 10 Blood Urea Nitrogen 16 Creatinine 1.35 Estimat Glomerular Filtration 65 Rate Random Glucose 144 Calcium Level 9.3 Date/Time Procedure Status Source Growth 01/09/17 04:26 Urine Culture Received Urine Clean Catch Pending Imaging Last Impressions Chest X-Ray 01/09/17 0000 Signed Impressions: Service Date/Time: Monday, January 09, 2017 05:30 - CONCLUSION: No acute disease. Bienvenido Shaikh MD Abdomen/Pelvis CT 01/09/17 0000 Signed Impressions: Service Date/Time: Monday, January 09, 2017 03:38 - CONCLUSION: 1. Severe hydronephrosis and hydroureter with a markedly abnormal heterogeneous thick walled trabeculated urinary bladder. It is difficult to exclude a bladder malignancy given the markedly heterogeneous appearance. For example a prominent area of thick trabeculated bladder wall is noted superiorly seen best on axial image 52 where a 5.3 x 4.6 cm masslike area is noted. 2. Extensive atherosclerotic disease. 3. Prominent heterogeneous prostate. 4. 5. Indeterminate cystic-appearing mass of the upper abdomen appears to arise from the pancreas with extrapancreatic component suggesting a large mildly complex cyst. There is some peripheral punctate calcification. Surgery should be considered for asymptomatic pancreatic cysts >3 cm, generally subsequent to aspiration. If the lesion is a cystadenoma, surgery is deferred until the cyst is > 4 cm. Solid pseudopapillary epithelial neoplasm tumors should be resected. Patient factors ultimately determine the appropriateness of surgical treatment. Reference: 6. [place] LL, Jolanta SG, Neftali RM et al; Managing Incidental Findings on Abdominal CT: White Paper of the ACR Incidental Findings Committee. J Am Min Radiol 2010;7:754-773. Bienvenido Shaikh MD Physical Exam HEENT: PERRL; normocephalic; atraumatic; no jaundice. CHEST: diminished CARDIAC: RRR ABDOMEN: Soft, nondistended, nontender; no hepatosplenomegaly; bowel sounds are present in all four quadrants. EXTREMITIES: No clubbing, cyanosis, or edema. SKIN: Normal; no rash; no jaundice. 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 (Mei Galeas) Assessment and Plan Plan ASSESSMENT - odynophagia - unclear etiology. onset 2m ago. no n/v. - weight loss - per pt 50lbs in 4 months, has had decreased appetite but cannot tell me if this b/c it hurts to swallow or he just doesn't feel hungry never had EGD/colonoscopy - pancreatic cyst - per CT 01-09-17 --> 1. Severe hydronephrosis and hydroureter with a markedly abnormal heterogeneous thick walled trabeculated urinary bladder. It is difficult to exclude a bladder malignancy given the markedly heterogeneous appearance. For example a prominent area of thick trabeculated bladder wall is noted superiorly seen best on axial image 52 where a 5.3 x 4.6 cm masslike area is noted. 2. Extensive atherosclerotic disease. 3. Prominent heterogeneous prostate. 4. 5. Indeterminate cystic-appearing mass of the upper abdomen appears to arise from the pancreas with extrapancreatic component suggesting a large mildly complex cyst. There is some peripheral punctate calcification. tumor markers elevated, CEA 23.1, CA19-9 228.3 - leukocytosis - 18.5 abx - bladder mass - per primary, CT as above. s/p EUA, cysto, urethtrotomy PLAN - await oncology consult - PRIMO - supportive care - further recommendations to follow This pt seen by myself and Dr Carranza and this note is written on his behalf ( Mei Galeas) Physician Comments patient was seen and examined, agree with above note and plan, possible pancreatic cancer, we will wait for oncology input, may need colon EGD thursday Vs Bx with US. (Adele Carranza MD) Mei Galeas Jan 10, 2017 16:38 Adele Carranza MD Jan 10, 2017 16:55
[2017-01-10] MEDS ORDERED: ALPRAZolam 0.5 MG TAB PO ONE (22:00)
[2017-01-11] VITALS (8 sets, daily range): BP systolic 103–137; BP diastolic 56–90; PULSE 63–91; RESP 17–20; TEMP 96–98.9; O2SAT 94–97
[2017-01-11] MEDS: CIPROFLOXACIN 400 MG PREMIX 200 ML IV SCH ×2 (04:48→16:19)
[2017-01-11 05:52] LABS: HEMATOCRIT 29.8 % (39.0-51.0); MEAN CELL VOLUME 95.9 FL (80.0-100.0); MEAN CORPUSCULAR HEMOGLOBIN 32.4 PG (27.0-34.0); MEAN CORPUSCULAR HGB CONC 33.7 % (32.0-36.0); PLATELET COUNT 500 TH/MM3 (150-450); RED CELL DISTRIBUTION WIDTH 13.5 % (11.6-17.2); REVIEW FLAG FINAL; WHITE BLOOD COUNT 15.4 TH/MM3 (4.0-11.0)
[2017-01-11 06:06] LABS: BICARBONATE 27.5 MEQ/L (21.0-32.0); MAGNESIUM 1.5 MG/DL (1.5-2.5); POTASSIUM 3.5 MEQ/L (3.5-5.1)
[2017-01-11] MEDS: DOCUSATE SODIUM 100 MG CAP PO SCH ×2 (08:04→20:46)
[2017-01-11] MEDS: SENNOSIDES 8.6 MG TAB PO SCH ×2 (08:04→08:11)
[2017-01-11] MEDS: MAGNESIUM HYDROXIDE SUSP 30 ML CUP PO SCH (08:04)
[2017-01-11] MEDS: PANTOPRAZOLE SODIUM 40 MG VIAL IV PUSH SCH ×2 (08:05→20:46)
[2017-01-11] MEDS: SODIUM CHLORIDE 0.9% FLUSH 10 ML FLUSH IV FLUSH SCH ×2 (08:05→20:46)
[2017-01-11] MEDS ORDERED: POTASSIUM CHLORIDE 25 MEQ EFFERVESCENT TAB PO ONE (10:00)
[2017-01-11] MEDS ORDERED: MAGNESIUM SULFATE 1 GM PREMIX 100 ML IV ONE (10:00)
--- NOTE | 2017-01-11 10:15 | HHI.PR ---
Subjective Remarks The patient was sleeping. He said he was sleeping because he didn't get much sleep. He denied any pain. He had no acute complaints. Objective Vitals Vital Signs Date Time Temp Pulse Resp B/P Pulse Ox O2 Delivery O2 Flow Rate FiO2 01/11/17 10:08 95 Nasal Cannula 2.00 01/11/17 08:00 98.9 78 20 121/76 95 01/11/17 04:00 96.4 71 17 105/71 94 01/11/17 00:00 96.4 75 17 126/78 97 01/10/17 20:35 Nasal Cannula 2.00 01/10/17 20:08 Nasal Cannula 2.00 01/10/17 20:00 97.3 80 17 102/70 93 01/10/17 16:00 97.8 64 20 106/70 96 01/10/17 13:45 65 01/10/17 12:00 97.8 65 18 120/72 96 I/O 01/10/17 01/10/17 01/10/17 01/11/17 01/11/17 01/11/17 07:00 15:00 23:00 07:00 15:00 23:00 Intake Total 835 ml 600 ml 1268 ml 754 ml 120 ml Output Total 950 ml 1200 ml 1000 ml 1000 ml Balance -115 ml -600 ml 268 ml -246 ml 120 ml Intake Oral 240 ml 600 ml 240 ml 240 ml 120 ml IV Total 595 ml 1028 ml 514 ml Output Urine Total 950 ml 1200 ml 1000 ml 1000 ml # Bowel Movements 0 Result Diagram: 01/11/17 0431 01/11/17 0431 Imaging Last Impressions Chest X-Ray 01/09/17 0000 Signed Impressions: Service Date/Time: Monday, January 09, 2017 05:30 - CONCLUSION: No acute disease. Bienvenido Shaikh MD Abdomen/Pelvis CT 01/09/17 0000 Signed Impressions: Service Date/Time: Monday, January 09, 2017 03:38 - CONCLUSION: 1. Severe hydronephrosis and hydroureter with a markedly abnormal heterogeneous thick walled trabeculated urinary bladder. It is difficult to exclude a bladder malignancy given the markedly heterogeneous appearance. For example a prominent area of thick trabeculated bladder wall is noted superiorly seen best on axial image 52 where a 5.3 x 4.6 cm masslike area is noted. 2. Extensive atherosclerotic disease. 3. Prominent heterogeneous prostate. 4. 5. Indeterminate cystic-appearing mass of the upper abdomen appears to arise from the pancreas with extrapancreatic component suggesting a large mildly complex cyst. There is some peripheral punctate calcification. Surgery should be considered for asymptomatic pancreatic cysts >3 cm, generally subsequent to aspiration. If the lesion is a cystadenoma, surgery is deferred until the cyst is > 4 cm. Solid pseudopapillary epithelial neoplasm tumors should be resected. Patient factors ultimately determine the appropriateness of surgical treatment. Reference: 6. Juanita LL, Jolanta SG, Neftali RM et al; Managing Incidental Findings on Abdominal CT: White Paper of the ACR Incidental Findings Committee. J Am Min Radiol 2010;7:754-773. Bienvenido Shaikh MD Objective Remarks GENERAL: This is a frail, thin older male patient, in no apparent distress. SKIN: No rashes, ecchymoses or lesions. Cool and dry. HEAD: Atraumatic. Normocephalic. EYES: No scleral icterus. No injection or drainage. ENT: Nose without bleeding, purulent drainage. NECK: Trachea midline. No JVD or lymphadenopathy. CARDIOVASCULAR: Regular rate and rhythm without murmurs, gallops, or rubs. RESPIRATORY: Clear to auscultation. Breath sounds equal bilaterally. No wheezes , rales, or rhonchi. GASTROINTESTINAL: Abdomen soft, tender in the LLQ, nondistended. No guarding. Decreased bowel sounds. GENITOURINARY: Suprapubic tenderness with palpation. Cortes with dark yellow urine. MUSCULOSKELETAL: Extremities without cyanosis, or edema. Extensive clubbing noted. NEUROLOGICAL: Awake and alert. Motor and sensory grossly within normal limits. Normal speech. PSYCH: Flattened affect. Procedures cystoscopy and direct visual internal urethrotomy of 2 bulbar urethral strictures Medications and IVs Current Medications Medications (Trade) Dose Ordered Sig/David Route Start Time Stop Time Status Last Admin (NS Flush) 2 ml UNSCH PRN IV FLUSH 01/09/17 05:00 (NS Flush) 2 ml BID IV FLUSH 01/09/17 09:00 01/10/17 20:35 Naloxone HCl 0.4 mg 0.4 mg UNSCH PRN IV 01/09/17 05:00 (Cipro 400 Mg Premix) 200 ml @ 200 mls/hr Q12H IV 01/09/17 05:00 01/11/17 04:48 (Protonix Inj) 40 mg Q12H IV PUSH 01/09/17 09:00 01/11/17 08:05 (Colace) 100 mg BID PO 01/10/17 13:30 01/11/17 08:04 (Senokot) 17.2 mg DAILY PO 01/10/17 13:30 01/11/17 08:04 Magnesium Hydroxide 30 ml 30 ml DAILY PO 01/10/17 13:30 01/11/17 08:04 (Magnesium Sulfate 1 Gm Premix) 100 ml @ 100 mls/hr ONCE ONCE IV 01/11/17 10:00 01/11/17 10:59 A/P Problem List: (1) Bladder mass ICD Code: N32.89 Status: Acute (2) Urinary retention ICD Code: R33.9 Status: Acute Assessment and Plan Urinary Retention/ Bladder Mass/ Leukocytosis Presented to the ED for suprapubic pain, hematuria, and penile discharge with bladder mass found on abdominal/pelvis CT with IV contrast. Urology consult appreciated. The pt is s/p cystoscopy and direct visual internal urethrotomy of 2 bulbar urethral strictures. - continue IV Cipro and follow urine culture. - follow up with urology. Continue Cortes. Odynophagia with weight loss/ Pancreatic mass Suspect possible GI malignancy. Gastroenterology consult appreciated. - Protonix 40 mg IV q12h. - EGD on Thursday per GI. May need EUS. - oncology consult pending. Acute respiratory insufficiency The pt has been requiring oxygen. CXR unremarkable. - oxygen and nebs as needed. - incentive spirometry. - PT. Anemia May be dilutional. - follow CBC. - GI work-up in progress. DVT prophylaxis: SCDs Discharge Planning Awaiting further evaluation Momo Moulton DO Jan 11, 2017 10:15
--- NOTE | 2017-01-11 13:35 | MB ---
cc: NEEL LIZARRAGA DATE OF CONSULTATION: 01/11/2017. REASON FOR CONSULTATION: Patient with a pancreatic mass. CHIEF COMPLAINT: Abdominal pain. HISTORY OF PRESENT ILLNESS: Mr. Purvis is a 61-year-old male who has a past medical history of alcohol abuse, tobacco abuse and drug abuse including marijuana and cocaine who presented to the emergency department with a one month history of suprapubic pain, a milky penile discharge and hematuria. He has also been becoming progressively short of breath. He has lost 50 pounds over the past three to four months. On admission, he had an abdominal and pelvic CT which showed severe hydronephrosis and hydroureter with a markedly abnormal heterogeneous thick-walled trabeculated urinary bladder. There was a prominent area of thick trabeculated bladder wall which appeared to be a mass of 5.3 x 4.6 cm in size. There was also an indeterminate cystic-appearing mass arising from the pancreas with extra-pancreatic component which was found to be a large complex cyst. The patient was evaluated by urology, and he has undergone cystoscopy and direct visual internal urethrotomy of two bulbar ureteral structures. He is on IV Ciprofloxacin. He has a Cortes catheter in place. I have been consulted to make further recommendations regarding the pancreatic mass. The patient has also been seen by GI. REVIEW OF SYSTEMS: A comprehensive 14-point review of systems was completed, which is negative except as described in the history of present illness. PAST MEDICAL HISTORY: Tobacco abuse alcohol abuse, polysubstance abuse. PAST SURGICAL HISTORY: Recent cystoscopy with urethrotomy. SOCIAL HISTORY: History of tobacco and alcohol abuse and marijuana and cocaine abuse. He has not had a primary care physician in the past. He is unemployed. FAMILY HISTORY: Family history was reviewed and is noncontributory to this admission. MEDICATIONS: Inpatient medications include: 1. DuoNebs q.2 h p.r.n. 2. Colace 100 milligrams p.o. twice a day. 3. Senna 17.2 milligrams p.o. daily. 4. Milk of magnesia 30 mL p.o. daily. 5. Pantoprazole 40 milligrams IV q.12 h. 6. Cipro IV q.12 h. ALLERGIES: NO KNOWN DRUG ALLERGIES. PHYSICAL EXAMINATION: VITAL SIGNS: Blood pressure is 106/70, pulse is in the 60s, temperature is 97.8, O2 sats are 96% on 2 liters nasal cannula. She is GENERAL: Cachectic thin male in no apparent distress. HEAD, EYES, EARS, NOSE, THROAT: Pupils are equal, round, react to light. EOMI. No oral thrush. No oral lesions. NECK: The neck is supple. No JVD, no bruits. No lymphadenopathy. CHEST: Chest is clear to auscultation bilaterally. CARDIAC: S1-S2. regular rate and rhythm. ABDOMEN: The abdomen is soft, nontender and nondistended. Bowel sounds are present. EXTREMITIES: Without any edema, erythema or cyanosis. SKIN: Without any petechiae, lesion or bruises. NEUROLOGIC: No focal deficits. PSYCHIATRIC: Mood and affect is appropriate. LABORATORY DATA: WBC is 18.5, hemoglobin 10.2, platelet count is 509,000. Serum chemistries show sodium of 138, potassium 3.4, chloride 101, CO2 27.1, BUN is 16, creatinine is 1.35, GFR is 65. Serum glucose is 144, calcium 9.3. Alpha-fetoprotein is 3.6. CEA is elevated at 23.1. CA 19-9 is 228.3. Urinalysis shows increased urine protein, occult blood, nitrite negative, leukocyte esterase large, RBCs 15, urine bacteria. A preliminary urine culture showed gram-negative rods. IMAGING STUDIES: CT of the abdomen and pelvis was reviewed. ASSESSMENT AND PLAN: This is a 56-year-old male who has a past medical history of tobacco abuse, alcohol abuse and polysubstance abuse who presented to the emergency department with abdominal pain, penile discharge hematuria, anorexia and 40 pound weight loss over the past four to five months. He had a CT of his abdomen and pelvis which revealed severe hydronephrosis and hydroureter with markedly abnormal thickened bladder wall concerning for a bladder mass. He was also found to have a pancreatic mass. Oncology has been consulted to make further recommendations. 1. An indeterminate cystic-appearing mass arising from pancreas with extra-pancreatic component. this appears to be a large complex cyst but there is also a possibility of pancreatic adenocarcinoma. His CEA and CA 19-9 levels are elevated, although they are not tremendously high and can occur in the setting of localized pancreatic inflammation. We still need to make sure that there is not underlying pancreatic adenocarcinoma. I would recommend endoscopic ultrasound with a biopsy. I would also recommend an MRI with pancreatic protocol. GI is already on the case in they plan on doing an EGD on Thursday. ____ and biopsy results are available. Once his creatinine improves, will also need to obtain a CT of the chest with contrast. 2. Bladder mass with strictures. On cystoscopy, there was no discrete bladder tumor. He currently has a Cortes catheter in place. He will follow with urology outpatient. 3. Anemia with a hemoglobin of 10. Obtain anemia studies. 4. Leukocytosis with gram-negative denny urinary tract infection. He is currently on antibiotics. Further speciation of gram-negative rods is pending. Thank you for allowing me to participate in the care of this patient. I will continue to follow this patient along. MD SHEREEN Tao/DIEGO /12:29 PM /1:22 PM
--- NOTE | 2017-01-11 14:47 | HHI.GIFU ---
Subjective Remarks Pt resting in bed. Will not speak to me except to deny nausea, abd pain. ( Mei Galeas) Objective Vitals I&O Vital Signs Date Time Temp Pulse Resp B/P Pulse Ox O2 Delivery O2 Flow Rate FiO2 01/11/17 12:00 98.7 63 18 109/70 95 01/11/17 10:08 95 Nasal Cannula 2.00 01/11/17 08:00 98.9 78 20 121/76 95 01/11/17 04:00 96.4 71 17 105/71 94 01/11/17 00:00 96.4 75 17 126/78 97 01/10/17 20:35 Nasal Cannula 2.00 01/10/17 20:08 Nasal Cannula 2.00 01/10/17 20:00 97.3 80 17 102/70 93 01/10/17 16:00 97.8 64 20 106/70 96 I/O 01/10/17 01/10/17 01/10/17 01/11/17 01/11/17 01/11/17 07:00 15:00 23:00 07:00 15:00 23:00 Intake Total 835 ml 600 ml 1268 ml 754 ml 1080 ml Output Total 950 ml 1200 ml 1000 ml 1000 ml 1600 ml Balance -115 ml -600 ml 268 ml -246 ml -520 ml Intake Oral 240 ml 600 ml 240 ml 240 ml 1080 ml IV Total 595 ml 1028 ml 514 ml Output Urine Total 950 ml 1200 ml 1000 ml 1000 ml 1600 ml # Bowel Movements 0 0 Laboratory Laboratory Tests Test 01/11/17 04:31 White Blood Count 15.4 Red Blood Count 3.10 Hemoglobin 10.0 Hematocrit 29.8 Mean Corpuscular Volume 95.9 Mean Corpuscular Hemoglobin 32.4 Mean Corpuscular Hemoglobin 33.7 Concent Red Cell Distribution Width 13.5 Platelet Count 500 Mean Platelet Volume 8.1 Sodium Level 139 Potassium Level 3.5 Chloride Level 104 Carbon Dioxide Level 27.5 Anion Gap 8 Blood Urea Nitrogen 10 Creatinine 1.04 Estimat Glomerular Filtration 88 Rate Random Glucose 127 Calcium Level 8.8 Magnesium Level 1.5 Date/Time Procedure Status Source Growth 01/09/17 04:26 Urine Culture - Preliminary Resulted Urine Clean Catch Gram Negative [facility] Last Impressions Chest X-Ray 01/09/17 0000 Signed Impressions: Service Date/Time: Monday, January 09, 2017 05:30 - CONCLUSION: No acute disease. Bienvenido Shaikh MD Abdomen/Pelvis CT 01/09/17 0000 Signed Impressions: Service Date/Time: Monday, January 09, 2017 03:38 - CONCLUSION: 1. Severe hydronephrosis and hydroureter with a markedly abnormal heterogeneous thick walled trabeculated urinary bladder. It is difficult to exclude a bladder malignancy given the markedly heterogeneous appearance. For example a prominent area of thick trabeculated bladder wall is noted superiorly seen best on axial image 52 where a 5.3 x 4.6 cm masslike area is noted. 2. Extensive atherosclerotic disease. 3. Prominent heterogeneous prostate. 4. 5. Indeterminate cystic-appearing mass of the upper abdomen appears to arise from the pancreas with extrapancreatic component suggesting a large mildly complex cyst. There is some peripheral punctate calcification. Surgery should be considered for asymptomatic pancreatic cysts >3 cm, generally subsequent to aspiration. If the lesion is a cystadenoma, surgery is deferred until the cyst is > 4 cm. Solid pseudopapillary epithelial neoplasm tumors should be resected. Patient factors ultimately determine the appropriateness of surgical treatment. Reference: 6. [place] LL, Jolanta SG, Neftali ARENAS et al; Managing Incidental Findings on Abdominal CT: White Paper of the ACR Incidental Findings Committee. J Am Min Radiol 2010;7:754-773. Bienvenido Shaikh MD Physical Exam HEENT: PERRL; normocephalic; atraumatic; no jaundice. CHEST: diminished CARDIAC: RRR ABDOMEN: Soft, nondistended, nontender; no hepatosplenomegaly; bowel sounds are present in all four quadrants. EXTREMITIES: No clubbing, cyanosis, or edema. SKIN: Normal; no rash; no jaundice. TRIMMING ASSEMBLER: alert (Mei Glaeas SUPERINTENDENT PLANT) Assessment and Plan Plan ASSESSMENT - odynophagia - unclear etiology. onset 2m ago. no n/v. - weight loss - per pt 50lbs in 4 months, has had decreased appetite but cannot tell me if this b/c it hurts to swallow or he just doesn't feel hungry never had EGD/colonoscopy - pancreatic cyst - per CT 01-09-17 --> 1. Severe hydronephrosis and hydroureter with a markedly abnormal heterogeneous thick walled trabeculated urinary bladder. It is difficult to exclude a bladder malignancy given the markedly heterogeneous appearance. For example a prominent area of thick trabeculated bladder wall is noted superiorly seen best on axial image 52 where a 5.3 x 4.6 cm masslike area is noted. 2. Extensive atherosclerotic disease. 3. Prominent heterogeneous prostate. 4. 5. Indeterminate cystic-appearing mass of the upper abdomen appears to arise from the pancreas with extrapancreatic component suggesting a large mildly complex cyst. There is some peripheral punctate calcification. tumor markers elevated, CEA 23.1, CA19-9 228.3 Oncology following, recommend MRI with pancreatic protocol, EUS - leukocytosis - improving abx - bladder mass - per primary, CT as above. s/p EUA, cysto, urethtrotomy PLAN - EUS, d/w Dr Flower , tentatively tomorrow - NPO - MRI with pancreatic protocol - PRIMO - supportive care - further recommendations to follow This pt seen by myself and Dr Carranza and this note is written on his behalf ( Mei Galeas) Physician Comments patient was seen and examined, agree with above note and plan, we will check if Dr Flower is available to dr OSORIO in next few days (Adele Carranza MD) Mei Galeas Jan 11, 2017 14:47 Adele Carranza MD Jan 11, 2017 19:16
[2017-01-11] MEDS ORDERED: LORazepam 2 MG/ML VIAL IV PRN (18:00)
[2017-01-11] MEDS ORDERED: LORazepam 2 MG/ML VIAL IV ONE (18:00)
[2017-01-11] MEDS ORDERED: GADODIAMIDE PF 287 MG/ML 20 ML VIAL (for RAD MRI) IV ONE (18:54)
[2017-01-11] MEDS ORDERED: ALPRAZolam 0.5 MG TAB PO ONE (19:45)
--- NOTE | 2017-01-11 20:45 | RADRPT ---
EXAM DATE/TIME: 01/11/2017 18:39 [facility] COMPARISON: CT ABDOMEN & PELVIS W CONTRAST, January 09, 2017, 3:38. INDICATIONS : Mass. CONTRAST: 15 cc Omniscan (gadodiamide) IV MEDICAL HISTORY : None. SURGICAL HISTORY : Right shoulder ENCOUNTER: Initial ACUITY: 1 day PAIN SCORE: 0/10 LOCATION: Abdomen. TECHNIQUE: Multiplanar, multisequence magnetic resonance imaging of the abdomen was performed without and with i ntravenous contrast. FINDINGS: There is hydronephrosis in the kidneys and discussing the patient's CT examination and on chemical sh ift imaging the liver appears to be fatty infiltrated although the examination is limited due to ethan on artifact. There is a large cystic mass in the lesser sac adjacent to the pancreas which measures 1 0 cm in size without any abnormal enhancement. The spleen, adrenals are unremarkable. There is no rick dence for any appreciable pathological adenopathy, free fluid, or bowel obstruction. Slight bibasila r atelectasis and/or infiltrate is seen. CONCLUSION: 1. Significant hydronephrosis bilaterally. 2. Cystic mass in the lesser sac does not demonstrate any abnormal enhancement and differential consi derations includes benign cystic lesions in addition to cystic neoplasm such as a cystadenoma/cystade nocarcinoma or even IPMN. Love Hernandez MD on January 11, 2017 at 20:39 Board Certified Radiologist. This report was verified electronically.
[2017-01-12] VITALS (9 sets, daily range): BP systolic 95–125; BP diastolic 64–81; PULSE 52–76; RESP 17–18; TEMP 95.8–98.2; O2SAT 93–98
[2017-01-12] MEDS: CIPROFLOXACIN 400 MG PREMIX 200 ML IV SCH ×2 (04:47→16:39)
[2017-01-12 06:27] LABS: MEAN CELL VOLUME 95.9 FL (80.0-100.0); MEAN CORPUSCULAR HEMOGLOBIN 31.8 PG (27.0-34.0); MEAN CORPUSCULAR HGB CONC 33.2 % (32.0-36.0); PLATELET COUNT 474 TH/MM3 (150-450); RED BLOOD COUNT 3.02 MIL/MM3 (4.50-5.90); RED CELL DISTRIBUTION WIDTH 13.2 % (11.6-17.2); REVIEW FLAG FINAL
[2017-01-12 06:48] LABS: BICARBONATE 28.6 MEQ/L (21.0-32.0); MAGNESIUM 1.7 MG/DL (1.5-2.5); POTASSIUM 3.8 MEQ/L (3.5-5.1)
[2017-01-12] MEDS: MAGNESIUM HYDROXIDE SUSP 30 ML CUP PO SCH (08:35)
[2017-01-12] MEDS: PANTOPRAZOLE SODIUM 40 MG VIAL IV PUSH SCH ×2 (08:35→21:16)
[2017-01-12] MEDS: SENNOSIDES 8.6 MG TAB PO SCH (08:35)
[2017-01-12] MEDS: DOCUSATE SODIUM 100 MG CAP PO SCH ×2 (08:36→21:16)
[2017-01-12] MEDS: SODIUM CHLORIDE 0.9% FLUSH 10 ML FLUSH IV FLUSH SCH ×2 (08:36→21:17)
--- NOTE | 2017-01-12 11:51 | HHI.PR ---
Subjective Remarks The pt was resting comfortably. He said he hadn't eaten yet. He wanted orange juice. He wanted to know why he was losing weight. Discussed with nursing. Objective Vitals Vital Signs Date Time Temp Pulse Resp B/P Pulse Ox O2 Delivery O2 Flow Rate FiO2 01/12/17 08:00 97.6 60 17 107/72 93 01/12/17 04:00 96.4 68 17 121/76 98 01/12/17 00:00 95.8 72 17 124/81 95 01/11/17 20:45 Nasal Cannula 2.00 01/11/17 20:31 70 01/11/17 20:00 96.0 76 17 137/90 95 01/11/17 16:00 98.6 67 20 103/70 95 01/11/17 16:00 98.6 67 20 103/70 95 01/11/17 12:00 98.6 67 20 103/70 95 01/11/17 12:00 98.7 63 18 109/70 95 I/O 01/11/17 01/11/17 01/11/17 01/12/17 01/12/17 01/12/17 07:00 15:00 23:00 07:00 15:00 23:00 Intake Total 754 ml 1680 ml 480 ml 440 ml Output Total 1000 ml 1600 ml 600 ml 2050 ml Balance -246 ml 80 ml -120 ml -1610 ml Intake Oral 240 ml 1080 ml 480 ml 240 ml IV Total 514 ml 600 ml 0 ml 200 ml Output Urine Total 1000 ml 1600 ml 600 ml 2050 ml # Bowel Movements 0 Result Diagram: 01/12/17 0516 01/12/17 0516 Imaging Last Impressions Abdomen MRI 01/11/17 0000 Signed Impressions: Service Date/Time: Wednesday, January 11, 2017 18:39 - CONCLUSION: 1. Significant hydronephrosis bilaterally. 2. Cystic mass in the lesser sac does not demonstrate any abnormal enhancement and differential considerations includes benign cystic lesions in addition to cystic neoplasm such as a cystadenoma/cystadenocarcinoma or even IPMN. Love Hernandez MD Chest X-Ray 01/09/17 0000 Signed Impressions: Service Date/Time: Monday, January 09, 2017 05:30 - CONCLUSION: No acute disease. Bienvenido Shaikh MD Abdomen/Pelvis CT 01/09/17 0000 Signed Impressions: Service Date/Time: Monday, January 09, 2017 03:38 - CONCLUSION: 1. Severe hydronephrosis and hydroureter with a markedly abnormal heterogeneous thick walled trabeculated urinary bladder. It is difficult to exclude a bladder malignancy given the markedly heterogeneous appearance. For example a prominent area of thick trabeculated bladder wall is noted superiorly seen best on axial image 52 where a 5.3 x 4.6 cm masslike area is noted. 2. Extensive atherosclerotic disease. 3. Prominent heterogeneous prostate. 4. 5. Indeterminate cystic-appearing mass of the upper abdomen appears to arise from the pancreas with extrapancreatic component suggesting a large mildly complex cyst. There is some peripheral punctate calcification. Surgery should be considered for asymptomatic pancreatic cysts >3 cm, generally subsequent to aspiration. If the lesion is a cystadenoma, surgery is deferred until the cyst is > 4 cm. Solid pseudopapillary epithelial neoplasm tumors should be resected. Patient factors ultimately determine the appropriateness of surgical treatment. Reference: 6. Juanita LL, Jolanta SG, Neftali RM et al; Managing Incidental Findings on Abdominal CT: White Paper of the ACR Incidental Findings Committee. J Am Min Radiol 2010;7:754-773. Bienvenido Shaikh MD Objective Remarks GENERAL: This is a frail, thin older male patient, in no apparent distress. SKIN: No rashes, ecchymoses or lesions. Cool and dry. HEAD: Atraumatic. Normocephalic. EYES: No scleral icterus. No injection or drainage. ENT: Nose without bleeding, purulent drainage. NECK: Trachea midline. No JVD or lymphadenopathy. CARDIOVASCULAR: Regular rate and rhythm without murmurs, gallops, or rubs. RESPIRATORY: Clear to auscultation. Breath sounds equal bilaterally. No wheezes , rales, or rhonchi. GASTROINTESTINAL: Abdomen soft, tender in the LLQ, nondistended. No guarding. Decreased bowel sounds. GENITOURINARY: Suprapubic tenderness with palpation. Cortes with dark yellow urine. MUSCULOSKELETAL: Extremities without cyanosis, or edema. Extensive clubbing noted. NEUROLOGICAL: Awake and alert. Motor and sensory grossly within normal limits. Normal speech. PSYCH: Flattened affect. Procedures cystoscopy and direct visual internal urethrotomy of 2 bulbar urethral strictures Medications and IVs Current Medications Medications (Trade) Dose Ordered Sig/David Route Start Time Stop Time Status Last Admin (NS Flush) 2 ml UNSCH PRN IV FLUSH 01/09/17 05:00 (NS Flush) 2 ml BID IV FLUSH 01/09/17 09:00 01/12/17 08:36 Naloxone HCl 0.4 mg 0.4 mg UNSCH PRN IV 01/09/17 05:00 (Cipro 400 Mg Premix) 200 ml @ 200 mls/hr Q12H IV 01/09/17 05:00 01/12/17 04:47 (Protonix Inj) 40 mg Q12H IV PUSH 01/09/17 09:00 01/12/17 08:35 (Colace) 100 mg BID PO 01/10/17 13:30 01/12/17 08:36 (Senokot) 17.2 mg DAILY PO 01/10/17 13:30 01/12/17 08:35 (Milk Of Magnesia Liq) 30 ml DAILY PO 01/10/17 13:30 01/12/17 08:35 A/P Problem List: (1) Bladder mass ICD Code: N32.89 Status: Acute (2) Urinary retention ICD Code: R33.9 Status: Acute Assessment and Plan Urinary Retention/ Bladder Mass/ Leukocytosis Presented to the ED for suprapubic pain, hematuria, and penile discharge with bladder mass found on abdominal/pelvis CT with IV contrast. Urology consult appreciated. The pt is s/p cystoscopy and direct visual internal urethrotomy of 2 bulbar urethral strictures. - continue IV Cipro and follow urine culture. GNR growing. Add blood cultures. - follow up with urology. Continue Cortes. Odynophagia with weight loss/ Pancreatic mass Suspect possible GI malignancy. Gastroenterology consult appreciated. - Protonix 40 mg IV q12h. - EUS per GI when able to schedule. - oncology consult appreciated. Acute respiratory insufficiency The pt has been requiring oxygen. CXR unremarkable. - oxygen and nebs as needed. - incentive spirometry. - PT. Anemia May be dilutional. - follow CBC. - GI work-up in progress. DVT prophylaxis: SCDs Discharge Planning Awaiting further evaluation Momo Moulton DO Jan 12, 2017 11:51
--- NOTE | 2017-01-12 12:23 | HHI.GIFU ---
Subjective Remarks Up in chair, no n/v. Tolerated breakfast- had eggs, ledezma, biscuit. States this is the first meal he was able to eat and tolerate. (Krista Wallace) Objective Vitals I&O Vital Signs Date Time Temp Pulse Resp B/P Pulse Ox O2 Delivery O2 Flow Rate FiO2 01/12/17 08:00 97.6 60 17 107/72 93 01/12/17 04:00 96.4 68 17 121/76 98 01/12/17 00:00 95.8 72 17 124/81 95 01/11/17 20:45 Nasal Cannula 2.00 01/11/17 20:31 70 01/11/17 20:00 96.0 76 17 137/90 95 01/11/17 16:00 98.6 67 20 103/70 95 01/11/17 16:00 98.6 67 20 103/70 95 01/11/17 12:00 98.6 67 20 103/70 95 01/11/17 12:00 98.7 63 18 109/70 95 I/O 01/11/17 01/11/17 01/11/17 01/12/17 01/12/17 01/12/17 07:00 15:00 23:00 07:00 15:00 23:00 Intake Total 754 ml 1680 ml 480 ml 440 ml Output Total 1000 ml 1600 ml 600 ml 2050 ml Balance -246 ml 80 ml -120 ml -1610 ml Intake Oral 240 ml 1080 ml 480 ml 240 ml IV Total 514 ml 600 ml 0 ml 200 ml Output Urine Total 1000 ml 1600 ml 600 ml 2050 ml # Bowel Movements 0 Laboratory Laboratory Tests Test 01/12/17 05:16 White Blood Count 11.0 Red Blood Count 3.02 Hemoglobin 9.6 Hematocrit 29.0 Mean Corpuscular Volume 95.9 Mean Corpuscular Hemoglobin 31.8 Mean Corpuscular Hemoglobin 33.2 Concent Red Cell Distribution Width 13.2 Platelet Count 474 Mean Platelet Volume 8.4 Sodium Level 137 Potassium Level 3.8 Chloride Level 102 Carbon Dioxide Level 28.6 Anion Gap 6 Blood Urea Nitrogen 11 Creatinine 1.06 Estimat Glomerular Filtration 86 Rate Random Glucose 105 Calcium Level 8.8 Magnesium Level 1.7 Date/Time Procedure Status Source Growth 01/09/17 04:26 Urine Culture - Preliminary Resulted Urine Clean Catch Gram Negative [facility]ren Imaging Last Impressions Abdomen MRI 01/11/17 0000 Signed Impressions: Service Date/Time: Wednesday, January 11, 2017 18:39 - CONCLUSION: 1. Significant hydronephrosis bilaterally. 2. Cystic mass in the lesser sac does not demonstrate any abnormal enhancement and differential considerations includes benign cystic lesions in addition to cystic neoplasm such as a cystadenoma/cystadenocarcinoma or even IPMN. Love Hernandez MD Chest X-Ray 01/09/17 0000 Signed Impressions: Service Date/Time: Monday, January 09, 2017 05:30 - CONCLUSION: No acute disease. Bienvenido Shaikh MD Abdomen/Pelvis CT 01/09/17 0000 Signed Impressions: Service Date/Time: Monday, January 09, 2017 03:38 - CONCLUSION: 1. Severe hydronephrosis and hydroureter with a markedly abnormal heterogeneous thick walled trabeculated urinary bladder. It is difficult to exclude a bladder malignancy given the markedly heterogeneous appearance. For example a prominent area of thick trabeculated bladder wall is noted superiorly seen best on axial image 52 where a 5.3 x 4.6 cm masslike area is noted. 2. Extensive atherosclerotic disease. 3. Prominent heterogeneous prostate. 4. 5. Indeterminate cystic-appearing mass of the upper abdomen appears to arise from the pancreas with extrapancreatic component suggesting a large mildly complex cyst. There is some peripheral punctate calcification. Surgery should be considered for asymptomatic pancreatic cysts >3 cm, generally subsequent to aspiration. If the lesion is a cystadenoma, surgery is deferred until the cyst is > 4 cm. Solid pseudopapillary epithelial neoplasm tumors should be resected. Patient factors ultimately determine the appropriateness of surgical treatment. Reference: 6. Berland LL, Jolanta SG, Neftali RM et al; Managing Incidental Findings on Abdominal CT: White Paper of the ACR Incidental Findings Committee. J Am Min Radiol 2010;7:754-773. Bienvenido Shaikh MD Physical Exam HEENT: Normocephalic; atraumatic CHEST: Resp. even/unlabored, diminished CARDIAC: RRR ABDOMEN: Soft, nondistended, nontender; no hepatosplenomegaly; bowel sounds are present in all four quadrants. EXTREMITIES: No clubbing, cyanosis, or edema. SKIN: Normal; no rash; no jaundice. BUSINESS DATABASE ANALYST: Alert, oriented. (Krista Wallace) Assessment and Plan Plan ASSESSMENT - Pancreatic cystic mass. Abdomen/Pelvis CT (01/09/17)----> 1. Severe hydronephrosis and hydroureter with a markedly abnormal heterogeneous thick walled trabeculated urinary bladder. It is difficult to exclude a bladder malignancy given the markedly heterogeneous appearance. For example a prominent area of thick trabeculated bladder wall is noted superiorly seen best on axial image 52 where a 5.3 x 4.6 cm masslike area is noted. 2. Extensive atherosclerotic disease. 3. Prominent heterogeneous prostate. 4. Indeterminate cystic-appearing mass of the upper abdomen appears to arise from the pancreas with extrapancreatic component suggesting a large mildly complex cyst. There is some peripheral punctate calcification. Surgery should be considered for asymptomatic pancreatic cysts >3 cm, generally subsequent to aspiration. If the lesion is a cystadenoma, surgery is deferred until the software test engineer is > 4 cm. Solid pseudopapillary epithelial neoplasm tumors should be resected. Patient factors ultimately determine the appropriateness of surgical treatment. 5. Juanita LL, Jolanta SG, Neftali RM et al; Managing Incidental Findings on Abdominal CT: White Paper of the ACR Incidental Findings Committee. Abdomen MRI (01/11/17)-----> 1. Significant hydronephrosis bilaterally. 2. Cystic mass in the lesser sac does not demonstrate any abnormal enhancement and differential considerations includes benign cystic lesions in addition to cystic neoplasm such as a cystadenoma/cystadenocarcinoma or even IPMN. He is not aware of any history of pancreatitis, but does have extensive etoh use history. CEA 23.1, CA19-9 228.3, AFP 3.6. Oncology following. Recommends EUS with FNA. Pt had already ate breakfast today and therefore this could not be scheduled. Spoke with Dr. Jean Flower, will not be able to do until Thursday. Spoke with Dr. Venegas in invasive radiology, no clear window, would have to go through small bowel for FNA, recommend EUS. Will contact [facility] to see if they would take patient for EUS with biopsy. - Weight loss. 50 lb weight loss in past 4 months. Never had egd/colonoscopy - Odynophagia, resolved. - Anemia. H/H 9.6/29.0. No acute blood loss. - Leukocytosis, improved. WBC 11.0. Urine cx with GNR. Cipro - Urinary retention, stricture. S/P cystoscopy and direct visual internal urethrotomy of 2 bulbar urethral strictures (01/09/17) per . PLAN - PRIMO for now - PPI - Pt had already ate today and therefore EUS could not be scheduled. Next available date with Dr. Flower is Thursday - Spoke with Dr. Venegas in radiology, does not have window for biopsy and recommends EUS - Monitor labs - Call placed to [facility] to [facility] transfer center to see if patient could be transferred for EUS with biopsy, faxed face sheet to . - Supportive care - Further recommendations to follow - Pt seen and examined by Dr. Hightower and myself and this note was written on her behalf Spoke to Dr. Bee- will accept pt as same day case for EUS with biopsy and will send patient back afterwards. Per [facility], pt not to be discharged, but sent for same day case. Schedulist will call nursing and case packer and sealer and let them know what time the patient will need to arrive by. Scheduling center number and nursing station number . CM consulted to assist with transportation/transfer. (Krista Wallace) Physician Comments seen, examined agree with above (Didi Hightower MD) Krista Wallace Jan 12, 2017 12:23 Didi Hightower MD Jan 13, 2017 07:54
[2017-01-12] MEDS ORDERED: TEMAZEPAM 15 MG CAP PO PRN (19:15)
[2017-01-12] MEDS: cefTRIAXone INJ 1,000 MG in SODIUM CHLORIDE 0.9% INJ 100 ML IV SCH (21:16)
[2017-01-13] VITALS (9 sets, daily range): BP systolic 100–127; BP diastolic 62–79; PULSE 53–90; RESP 16–20; TEMP 96.1–97.8; O2SAT 93–99
[2017-01-13] MEDS: DOCUSATE SODIUM 100 MG CAP PO SCH ×2 (09:01→20:27)
[2017-01-13] MEDS: MAGNESIUM HYDROXIDE SUSP 30 ML CUP PO SCH (09:01)
[2017-01-13] MEDS: PANTOPRAZOLE SOD 20 MG DELAYED RELEASE TAB PO SCH (09:01)
[2017-01-13] MEDS: SENNOSIDES 8.6 MG TAB PO SCH (09:01)
[2017-01-13] MEDS: SODIUM CHLORIDE 0.9% FLUSH 10 ML FLUSH IV FLUSH SCH ×2 (09:02→20:27)
--- NOTE | 2017-01-13 12:10 | HHI.PR ---
Subjective Remarks The patient complained of lower abdominal pain. He said the pain comes and goes. He requested something for sleep. He also wanted a soda to drink. No other acute complaint. Objective Vitals Vital Signs Date Time Temp Pulse Resp B/P Pulse Ox O2 Delivery O2 Flow Rate FiO2 01/13/17 08:00 97.2 53 17 100/62 94 01/13/17 04:00 96.1 60 20 109/69 99 01/13/17 00:00 97.6 81 20 127/79 97 01/12/17 21:00 76 01/12/17 21:00 Nasal Cannula 2.00 01/12/17 20:00 98.2 75 18 103/65 97 01/12/17 18:03 93 21 01/12/17 16:00 97.1 75 17 95/64 93 01/12/17 12:19 52 01/12/17 12:14 Room Air I/O 01/12/17 01/12/17 01/12/17 01/13/17 01/13/17 01/13/17 06:59 14:59 22:59 06:59 14:59 22:59 Intake Total 440 ml 575 ml Output Total 2050 ml 1550 ml 2000 ml 1600 ml Balance -1610 ml -975 ml -2000 ml -1600 ml Intake Oral 240 ml 575 ml IV Total 200 ml Output Urine Total 2050 ml 1550 ml 2000 ml 1600 ml # Voids 0 # Bowel Movements 0 0 0 Result Diagram: 01/12/17 0516 01/12/17 0516 Imaging Last Impressions Abdomen MRI 01/11/17 0000 Signed Impressions: Service Date/Time: Wednesday, January 11, 2017 18:39 - CONCLUSION: 1. Significant hydronephrosis bilaterally. 2. Cystic mass in the lesser sac does not demonstrate any abnormal enhancement and differential considerations includes benign cystic lesions in addition to cystic neoplasm such as a cystadenoma/cystadenocarcinoma or even IPMN. Love Hernandez MD Chest X-Ray 01/09/17 0000 Signed Impressions: Service Date/Time: Monday, January 09, 2017 05:30 - CONCLUSION: No acute disease. Bienvenido Shaikh MD Abdomen/Pelvis CT 01/09/17 0000 Signed Impressions: Service Date/Time: Monday, January 09, 2017 03:38 - CONCLUSION: 1. Severe hydronephrosis and hydroureter with a markedly abnormal heterogeneous thick walled trabeculated urinary bladder. It is difficult to exclude a bladder malignancy given the markedly heterogeneous appearance. For example a prominent area of thick trabeculated bladder wall is noted superiorly seen best on axial image 52 where a 5.3 x 4.6 cm masslike area is noted. 2. Extensive atherosclerotic disease. 3. Prominent heterogeneous prostate. 4. 5. Indeterminate cystic-appearing mass of the upper abdomen appears to arise from the pancreas with extrapancreatic component suggesting a large mildly complex cyst. There is some peripheral punctate calcification. Surgery should be considered for asymptomatic pancreatic cysts >3 cm, generally subsequent to aspiration. If the lesion is a cystadenoma, surgery is deferred until the cyst is > 4 cm. Solid pseudopapillary epithelial neoplasm tumors should be resected. Patient factors ultimately determine the appropriateness of surgical treatment. Reference: 6. Juanita LL, Jolanta SG, Neftali ARENAS et al; Managing Incidental Findings on Abdominal CT: White Paper of the ACR Incidental Findings Committee. J Am Min Radiol 2010;7:754-773. Bienvenido Shaikh MD Objective Remarks GENERAL: This is a frail, thin older male patient, in no apparent distress. SKIN: No rashes, ecchymoses or lesions. Cool and dry. HEAD: Atraumatic. Normocephalic. EYES: No scleral icterus. No injection or drainage. ENT: Nose without bleeding, purulent drainage. NECK: Trachea midline. No JVD or lymphadenopathy. CARDIOVASCULAR: Regular rate and rhythm without murmurs, gallops, or rubs. RESPIRATORY: Clear to auscultation. Breath sounds equal bilaterally. No wheezes , rales, or rhonchi. GASTROINTESTINAL: Abdomen soft, tender in the LLQ, nondistended. No guarding. Decreased bowel sounds. GENITOURINARY: Suprapubic tenderness with palpation. Fullness of the bladder appreciated. Cortes with yellow urine. MUSCULOSKELETAL: Extremities without cyanosis, or edema. Extensive clubbing noted. NEUROLOGICAL: Awake and alert. Motor and sensory grossly within normal limits. Normal speech. PSYCH: Mood and affect appropriate. Procedures cystoscopy and direct visual internal urethrotomy of 2 bulbar urethral strictures A/P Problem List: (1) Bladder mass ICD Code: N32.89 Status: Acute (2) Urinary retention ICD Code: R33.9 Status: Acute Assessment and Plan Urinary Retention/ Bladder Mass/ Leukocytosis Presented to the ED for suprapubic pain, hematuria, and penile discharge with bladder mass found on abdominal/pelvis CT with IV contrast. Urology consult appreciated. The pt is s/p cystoscopy and direct visual internal urethrotomy of 2 bulbar urethral strictures. Culture growing E coli. - Cipro switched to ceftriaxone. - follow blood cultures. - follow up with urology. Continue Cortes. - pain control. Odynophagia with weight loss/ Pancreatic mass Suspect possible GI malignancy. Gastroenterology consult appreciated. - Protonix daily. - EUS per GI when able to schedule. - oncology consult appreciated. Constipation No documented bowel movement in the past few days. - continue bowel regimen. Add MiraLAX. Acute respiratory insufficiency The pt has been requiring oxygen. CXR unremarkable. - oxygen and nebs as needed. - incentive spirometry. - PT. Anemia May be dilutional. - follow CBC. - GI work-up in progress. DVT prophylaxis: Heparin Discharge Planning Awaiting further evaluation Momo Moulton DO Jan 13, 2017 12:10
[2017-01-13] MEDS ORDERED: ZOLPIDEM TARTRATE 5 MG TAB PO PRN (12:15)
--- NOTE | 2017-01-13 13:31 | PD.ONC.PN ---
Subjective Subjective Remarks Afebrile overnight. Patient resting in room. EUS planned for Thursday. Some mild abdominal pain. otherwise no complaints. Objective Data Date Time Temp Pulse Resp B/P Pulse Ox O2 Delivery O2 Flow Rate FiO2 01/13/17 12:10 93 01/13/17 12:00 97.2 70 18 125/70 96 01/13/17 08:00 97.2 53 17 100/62 94 01/13/17 04:00 96.1 60 20 109/69 99 01/13/17 00:00 97.6 81 20 127/79 97 01/12/17 21:00 76 01/12/17 21:00 Nasal Cannula 2.00 01/12/17 20:00 98.2 75 18 103/65 97 01/12/17 18:03 93 21 01/12/17 16:00 97.1 75 17 95/64 93 01/13/17 01/13/17 01/13/17 07:00 15:00 23:00 Output Total 1600 ml Balance -1600 ml Result Diagram: 01/12/17 0516 01/12/17 0516 Culture Results Microbiology Date/Time Procedure Status Source Growth 01/13/17 04:30 Aerobic Blood Culture Received Blood Peripheral Pending 01/13/17 04:30 Anaerobic Blood Culture Received Blood Peripheral Pending 01/13/17 04:40 Aerobic Blood Culture Received Blood Peripheral Pending 01/13/17 04:40 Anaerobic Blood Culture Received Blood Peripheral Pending Administered Medications Medications (Trade) Dose Ordered Sig/David Route PRN Reason Start Time Stop Time Status Last Admin Dose Admin Sodium Chloride (NS Flush) 2 ml BID IV FLUSH 01/09/17 09:00 01/13/17 09:02 Docusate Sodium (Colace) 100 mg BID PO 01/10/17 13:30 01/13/17 09:01 Sennosides (Senokot) 17.2 mg DAILY PO 01/10/17 13:30 01/13/17 09:01 Magnesium Hydroxide 30 ml 30 ml DAILY PO 01/10/17 13:30 01/13/17 09:01 Ceftriaxone Sodium/Sodium Chloride (Rocephin Inj/NS Inj) 100 ml @ 200 mls/hr Q24H IV 01/12/17 21:00 01/12/17 21:16 Pantoprazole Sodium (Protonix) 20 mg DAILY PO 01/13/17 09:00 01/13/17 09:01 Objective Remarks GENERAL: Middle aged male upright in bed in nad. SKIN: Warm and dry. HEAD: Normocephalic. EYES: No injection or drainage. NECK: Supple, trachea midline. CARDIOVASCULAR: Regular rate and rhythm RESPIRATORY: Breath sounds equal bilaterally. No accessory muscle use. GASTROINTESTINAL: Abdomen soft, non-tender, nondistended. EXTREMITIES: No cyanosis NEUROLOGICAL: No obvious focal deficit. Awake, alert, and oriented x3. Assessment/Plan Problem List: (1) Pancreatic mass Status: Acute Plan: -- indeterminate cystic-appearing mass arising from pancreas with extra- pancreatic component. appears to be a large complex cyst but there is also a possibility of pancreatic adenocarcinoma. --CEA and CA 19-9 levels are elevated, --needs endoscopic ultrasound with a biopsy. --GI following. Once his creatinine improves, will also need to obtain a CT of the chest with contrast. (2) Bladder mass Status: Acute Plan: --s/p cystoscopy and direct visual internal urethrotomy of two bulbar ureteral structures. On cystoscopy, there was no discrete bladder tumor. --on IV Ciprofloxacin. has a Cortes catheter in place. (3) Normocytic anemia Status: Acute Plan: --will obtain B12, RBC folate, iron studies Assessment 61y/o male with a pancreatic mass, admitted with one month h/o suprapubic pain, penile discharge and hematuria history of alcohol abuse, tobacco abuse and drug abuse including marijuana and cocaine Plan 1. obtain anemia studies 2. EUS on Thursday Attending Statement The exam, history, and the medical decision-making described in the above note were completed with the assistance of the mid-level provider. I reviewed and agree with the findings presented. I attest that I had a [id number] encounter with the patient on the same day, and personally performed and documented my assessment and findings in the medical record. Amy Barrios Jan 13, 2017 13:30 Trell Webster MD Jan 14, 2017 00:09
[2017-01-13] MEDS: HEPARIN SODIUM - SQ 10,000 UNITS/ML VIAL SQ SCH ×2 (13:51→20:27)
[2017-01-13] MEDS: POLYETHYLENE GLYCOL 17 GM PKG PO SCH (13:51)
--- NOTE | 2017-01-13 15:35 | HHI.GIFU ---
Subjective Remarks Resting in bed in no distress. Tolerating diet. No n/v, denies abdominal pain. D/W patient that EUS with cyst gastrostomy will not be able to be done until 01/19, when Dr. Lara returns and that from a GI standpoint, he could possibly go home and then return to the hospital on Thursday and have EUS with FNA possible cyst gastrostomy tube on Thursday. The patient reports that he does not want to be discharged until this is addressed and that he will not be able to return to the hospital. (Krista Wallace) Objective Vitals I&O Vital Signs Date Time Temp Pulse Resp B/P Pulse Ox O2 Delivery O2 Flow Rate FiO2 01/13/17 12:10 93 01/13/17 12:00 97.2 70 18 125/70 96 01/13/17 08:00 97.2 53 17 100/62 94 01/13/17 04:00 96.1 60 20 109/69 99 01/13/17 00:00 97.6 81 20 127/79 97 01/12/17 21:00 76 01/12/17 21:00 Nasal Cannula 2.00 01/12/17 20:00 98.2 75 18 103/65 97 01/12/17 18:03 93 21 01/12/17 16:00 97.1 75 17 95/64 93 I/O 01/12/17 01/12/17 01/12/17 01/13/17 01/13/17 01/13/17 07:00 15:00 23:00 07:00 15:00 23:00 Intake Total 440 ml 575 ml 920 ml Output Total 2050 ml 1550 ml 2000 ml 1600 ml 600 ml Balance -1610 ml -975 ml -2000 ml -1600 ml 320 ml Intake Oral 240 ml 575 ml 920 ml IV Total 200 ml Output Urine Total 2050 ml 1550 ml 2000 ml 1600 ml 600 ml # Voids 0 # Bowel Movements 0 0 0 1 Laboratory Date/Time Procedure Status Source Growth 01/13/17 04:40 Aerobic Blood Culture Received Blood Peripheral Pending 01/13/17 04:40 Anaerobic Blood Culture Received Blood Peripheral Pending 01/09/17 04:26 Urine Culture - Final Complete Urine Clean Catch Escherichia Coli Imaging Last Impressions Abdomen MRI 01/11/17 0000 Signed Impressions: Service Date/Time: Wednesday, January 11, 2017 18:39 - CONCLUSION: 1. Significant hydronephrosis bilaterally. 2. Cystic mass in the lesser sac does not demonstrate any abnormal enhancement and differential considerations includes benign cystic lesions in addition to cystic neoplasm such as a cystadenoma/cystadenocarcinoma or even IPMN. Love Hernandez MD Chest X-Ray 01/09/17 0000 Signed Impressions: Service Date/Time: Monday, January 09, 2017 05:30 - CONCLUSION: No acute disease. Bienvenido Shaikh MD Abdomen/Pelvis CT 01/09/17 0000 Signed Impressions: Service Date/Time: Monday, January 09, 2017 03:38 - CONCLUSION: 1. Severe hydronephrosis and hydroureter with a markedly abnormal heterogeneous thick walled trabeculated urinary bladder. It is difficult to exclude a bladder malignancy given the markedly heterogeneous appearance. For example a prominent area of thick trabeculated bladder wall is noted superiorly seen best on axial image 52 where a 5.3 x 4.6 cm masslike area is noted. 2. Extensive atherosclerotic disease. 3. Prominent heterogeneous prostate. 4. 5. Indeterminate cystic-appearing mass of the upper abdomen appears to arise from the pancreas with extrapancreatic component suggesting a large mildly complex cyst. There is some peripheral punctate calcification. Surgery should be considered for asymptomatic pancreatic cysts >3 cm, generally subsequent to aspiration. If the lesion is a cystadenoma, surgery is deferred until the cyst is > 4 cm. Solid pseudopapillary epithelial neoplasm tumors should be resected. Patient factors ultimately determine the appropriateness of surgical treatment. Reference: 6. Berland LL, Jolanta SG, [place] RM et al; Managing Incidental Findings on Abdominal CT: White Paper of the ACR Incidental Findings Committee. J Am Min Radiol 2010;7:754-773. Bienvenido Shaikh MD Physical Exam HEENT: Normocephalic; atraumatic CHEST: Resp. even/unlabored, diminished CARDIAC: RRR ABDOMEN: Soft, nondistended, nontender; no hepatosplenomegaly; bowel sounds are present in all four quadrants. EXTREMITIES: No clubbing, cyanosis, or edema. SKIN: Normal; no rash; no jaundice. 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 (Krista WallaceP) Assessment and Plan Plan ASSESSMENT - Pancreatic cystic mass. Abdomen/Pelvis CT (01/09/17)----> 1. Severe hydronephrosis and hydroureter with a markedly abnormal heterogeneous thick walled trabeculated urinary bladder. It is difficult to exclude a bladder malignancy given the markedly heterogeneous appearance. For example a prominent area of thick trabeculated bladder wall is noted superiorly seen best on axial image 52 where a 5.3 x 4.6 cm masslike area is noted. 2. Extensive atherosclerotic disease. 3. Prominent heterogeneous prostate. 4. Indeterminate cystic-appearing mass of the upper abdomen appears to arise from the pancreas with extrapancreatic component suggesting a large mildly complex cyst. There is some peripheral punctate calcification. Surgery should be considered for asymptomatic pancreatic cysts >3 cm, generally subsequent to aspiration. If the lesion is a cystadenoma, surgery is deferred until the coal unloader is > 4 cm. Solid pseudopapillary epithelial neoplasm tumors should be resected. Patient factors ultimately determine the appropriateness of surgical treatment. 5. Juanita LL, Jolanta SG, Neftali RM et al; Managing Incidental Findings on Abdominal CT: White Paper of the ACR Incidental Findings Committee. Abdomen MRI (01/11/17)-----> 1. Significant hydronephrosis bilaterally. 2. Cystic mass in the lesser sac does not demonstrate any abnormal enhancement and differential considerations includes benign cystic lesions in addition to cystic neoplasm such as a cystadenoma/cystadenocarcinoma or even IPMN. He is not aware of any history of pancreatitis, but does have extensive etoh use history. CEA 23.1, CA19-9 228.3, AFP 3.6. Oncology following. Recommends EUS with FNA. Spoke with Dr. Venegas in invasive radiology, no clear window, would have to go through small bowel for FNA, recommend EUS. Per Dr. Jean Flower, the mass seems to more cystic and may be high risk for cutaneous fistula. Pt was accepted at [facility], Dr Bee as same day case for EUS with biopsy and will send patient back afterwards. However , this was not approved by the hospital here and his appointment was cancelled. We recommend EUS with FNA, possible cyst gastrostomy tube if needed, but Dr. Lara is not available until 01/19. From a GI standpoint, pt is stable and could be discharged and return to the hospital on Thursday for procedure. However, patient does not want to be discharged prior to having this done and states that he will not be able to follow up or come back to the hospital if he is discharged before then. Will get GS evaluation, but likely pt will need to have EUS with bx and cyst gastrostomy tube on Thursday. - Weight loss. 50 lb weight loss in past 4 months. Never had egd/colonoscopy - Odynophagia, resolved. - Anemia. H/H 9.6/29.0. No acute blood loss. - Leukocytosis, improved. WBC 11.0. Urine cx with GNR. BCx pending. Cipro - Urinary retention, stricture. S/P cystoscopy and direct visual internal urethrotomy of 2 bulbar urethral strictures (01/09/17) per . PLAN - PRIMO - PPI - Supportive care - Pt was accepted at [facility], Dr Bee as same day case for EUS with biopsy and will send patient back afterwards. However, this was not approved by the hospital here and his appointment was cancelled. We recommend EUS with FNA, possible cyst gastrostomy tube if needed, but Dr. Lara is not available until 01/19. From a GI standpoint, pt is stable and could be discharged and return to the hospital on Thursday for procedure. However, patient does not want to be discharged prior to having this done and states that he will not be able to follow up or come back to the hospital if he is discharged before then. Will get GS evaluation, but likely pt will need to have EUS with bx and cyst gastrostomy tube on Thursday. - GS evaluation to see if they could possibly do pancreatic biopsy and drainage if needed - If arrangements could be made to have patient return on Thursday for EUS with bx , drainage if needed, then patient could be discharged home and return to hospital Thursday from GI standpoint - Further recommendations to follow based on results of above - Pt seen and examined by Dr. Hightower and myself and this note was written on her behalf . (Krista Wallace) Physician Comments seen, examined agree with above we will fu with you we will discuss with case management (Didi Hightower MD) Krista Wallace Jan 13, 2017 15:35 Didi Hightower MD Jan 13, 2017 16:36
[2017-01-13] MEDS: cefTRIAXone INJ 1,000 MG in SODIUM CHLORIDE 0.9% INJ 100 ML IV SCH (20:26)
[2017-01-13 23:04] LABS: RETIC % 1.9 % (0.4-3.0); REVIEW FLAG FINAL
[2017-01-13 23:11] LABS: LDH SERUM 131 U/L (87-241)
[2017-01-13 23:35] LABS: FERRITIN 706 NG/ML (26-388); TRANSFERRIN IRON PROFILE 128 MG/DL (200-360)
[2017-01-14] VITALS (7 sets, daily range): BP systolic 92–136; BP diastolic 57–76; PULSE 58–85; RESP 16–20; TEMP 97.2–97.8; O2SAT 92–100
[2017-01-14] MEDS: HEPARIN SODIUM - SQ 10,000 UNITS/ML VIAL SQ SCH ×3 (05:57→20:56)
[2017-01-14] MEDS: MAGNESIUM HYDROXIDE SUSP 30 ML CUP PO SCH (08:22)
[2017-01-14] MEDS: DOCUSATE SODIUM 100 MG CAP PO SCH ×2 (08:22→20:59)
[2017-01-14] MEDS: PANTOPRAZOLE SOD 20 MG DELAYED RELEASE TAB PO SCH (08:22)
[2017-01-14] MEDS: POLYETHYLENE GLYCOL 17 GM PKG PO SCH (08:23)
[2017-01-14] MEDS: SENNOSIDES 8.6 MG TAB PO SCH (08:23)
[2017-01-14] MEDS: SODIUM CHLORIDE 0.9% FLUSH 10 ML FLUSH IV FLUSH SCH ×2 (08:32→20:59)
--- NOTE | 2017-01-14 10:15 | HHI.PR ---
Subjective Remarks This is a pleasant 61 y/o Male with Pancreatic cystic Mass, Abdomen/Pelvis CT ()----> 1. Severe hydronephrosis and hydroureter with a markedly abnormal heterogeneous thick walled trabeculated urinary bladder. It is difficult to exclude a bladder malignancy given the markedly heterogeneous appearance. For example a prominent area of thick trabeculated bladder wall is noted superiorly seen best on axial image 52 where a 5.3 x 4.6 cm masslike area is noted. CEA 23.1, CA19-9 228.3, AFP 3.6. Oncology following. Recommends EUS with FNA. Spoke with Dr. Venegas in invasive radiology, no clear window, would have to go through small bowel for FNA, recommend EUS. Per Dr. Jean Flower, the mass seems to more cystic and may be high risk for cutaneous fistula. Pt was accepted at [facility], Dr Bee as same day case for EUS with biopsy and will send patient back afterwards. However, this was not approved by the hospital here and his appointment was cancelled. We recommend EUS with FNA, possible cyst gastrostomy tube if needed, but Dr. Lara is not available until 01/19. From a GI standpoint, pt is stable and could be discharged and return to the hospital on Thursday for procedure. However, patient does not want to be discharged prior to having this done and states that he will not be able to follow up or come back to the hospital if he is discharged before then. Will get GS evaluation, but likely pt will need to have EUS with bx and cyst gastrostomy tube on Thursday. Weight loss 50 Pounds in the past 4 months. 01/14: Seen in his bedroom stable, no nausea, vomit or diarrhea, Objective Vital Signs Date Time Temp Pulse Resp B/P Pulse Ox O2 Delivery O2 Flow Rate FiO2 01/14/17 09:28 18 01/14/17 08:00 97.2 58 18 100/57 96 01/14/17 04:00 97.5 61 16 103/62 92 01/14/17 00:00 97.2 77 18 136/76 100 01/13/17 22:25 97 21 01/13/17 20:00 96.6 76 18 117/76 98 01/13/17 20:00 Room Air 7/18/17 20:00 90 01/13/17 16:00 97.8 62 16 104/75 95 01/13/17 12:10 93 01/13/17 12:00 97.2 70 18 125/70 96 I/O 01/13/17 01/13/17 01/13/17 01/14/17 01/14/17 01/14/17 07:00 15:00 23:00 07:00 15:00 23:00 Intake Total 920 ml 120 ml Output Total 1600 ml 600 ml 725 ml Balance -1600 ml 320 ml -725 ml 120 ml Intake Oral 920 ml 120 ml Output Urine Total 1600 ml 600 ml 725 ml # Voids 0 # Bowel Movements 0 1 0 Result Diagram: 01/12/17 0516 01/12/17 0516 Imaging Last Impressions Abdomen MRI 01/11/17 0000 Signed Impressions: Service Date/Time: Wednesday, January 11, 2017 18:39 - CONCLUSION: 1. Significant hydronephrosis bilaterally. 2. Cystic mass in the lesser sac does not demonstrate any abnormal enhancement and differential considerations includes benign cystic lesions in addition to cystic neoplasm such as a cystadenoma/cystadenocarcinoma or even IPMN. Love Hernandez MD Chest X-Ray 01/09/17 0000 Signed Impressions: Service Date/Time: Monday, January 09, 2017 05:30 - CONCLUSION: No acute disease. Bienvenido Shaikh MD Abdomen/Pelvis CT 01/09/17 0000 Signed Impressions: Service Date/Time: Monday, January 09, 2017 03:38 - CONCLUSION: 1. Severe hydronephrosis and hydroureter with a markedly abnormal heterogeneous thick walled trabeculated urinary bladder. It is difficult to exclude a bladder malignancy given the markedly heterogeneous appearance. For example a prominent area of thick trabeculated bladder wall is noted superiorly seen best on axial image 52 where a 5.3 x 4.6 cm masslike area is noted. 2. Extensive atherosclerotic disease. 3. Prominent heterogeneous prostate. 4. 5. Indeterminate cystic-appearing mass of the upper abdomen appears to arise from the pancreas with extrapancreatic component suggesting a large mildly complex cyst. There is some peripheral punctate calcification. Surgery should be considered for asymptomatic pancreatic cysts >3 cm, generally subsequent to aspiration. If the lesion is a cystadenoma, surgery is deferred until the cyst is > 4 cm. Solid pseudopapillary epithelial neoplasm tumors should be resected. Patient factors ultimately determine the appropriateness of surgical treatment. Reference: 6. Allenland LL, Jolanta SG, Neftali RM et al; Managing Incidental Findings on Abdominal CT: White Paper of the ACR Incidental Findings Committee. J Am Min Radiol 2010;7:754-773. Bienvenido Shaikh MD Procedures cystoscopy and direct visual internal urethrotomy of 2 bulbar urethral strictures Other Results Laboratory Tests Test 01/09/17 01/10/17 01/12/17 01/13/17 04:26 04:50 05:16 22:39 Urine Color YELLOW Urine Turbidity CLOUDY Urine pH 8.0 Urine Specific [place] 1.009 Urine Protein 100 mg/dL Urine Glucose (UA) NEG mg/dL Urine Ketones NEG mg/dL Urine Occult Blood MOD Urine Nitrite NEG Urine Bilirubin NEG Urine Urobilinogen LESS THAN 2.0 MG/DL Urine Leukocyte Esterase LARGE Urine RBC 15 /hpf Urine WBC /hpf Urine WBC Clumps MOD Urine Bacteria MANY /hpf Urine Mucus MANY /lpf Microscopic Urinalysis Comment CULTURE INDICATED Neutrophils (%) (Auto) 84.1 % Lymphocytes (%) (Auto) 8.9 % Monocytes (%) (Auto) 6.6 % Eosinophils (%) (Auto) 0.2 % Basophils (%) (Auto) 0.2 % Neutrophils # (Auto) 15.6 TH/MM3 Lymphocytes # (Auto) 1.6 TH/MM3 Monocytes # (Auto) 1.2 TH/MM3 Eosinophils # (Auto) 0.0 TH/MM3 Basophils # (Auto) 0.0 TH/MM3 CBC Comment DIFF FINAL Differential Comment White Blood Count 11.0 TH/MM3 Red Blood Count 3.02 MIL/MM3 Hemoglobin 9.6 GM/DL Hematocrit 29.0 % Mean Corpuscular Volume 95.9 FL Mean Corpuscular Hemoglobin 31.8 PG Mean Corpuscular Hemoglobin 33.2 % Concent Red Cell Distribution Width 13.2 % Platelet Count 474 TH/MM3 Mean Platelet Volume 8.4 FL Sodium Level 137 MEQ/L Potassium Level 3.8 MEQ/L Chloride Level 102 MEQ/L Carbon Dioxide Level 28.6 MEQ/L Anion Gap 6 MEQ/L Blood Urea Nitrogen 11 MG/DL Creatinine 1.06 MG/DL Estimat Glomerular Filtration 86 ML/MIN Rate Random Glucose 105 MG/DL Calcium Level 8.8 MG/DL Magnesium Level 1.7 MG/DL Reticulocyte Count 1.9 % Absolute Reticulocyte Count 59.5 MIL/L Haptoglobin 262 MG/DL Iron Level 56 MCG/DL Total Iron Binding Capacity 179 MCG/DL Percent Iron Saturation 31.3 % Ferritin 706 NG/ML Lactate Dehydrogenase 131 U/L C-Reactive Protein 2.00 MG/DL Vitamin B12 Level 542 PG/ML Objective Remarks GENERAL: This is a frail, thin older male patient, in no apparent distress. SKIN: No rashes, ecchymoses or lesions. Cool and dry. HEAD: Atraumatic. Normocephalic. EYES: No scleral icterus. No injection or drainage. ENT: Nose without bleeding, purulent drainage. NECK: Trachea midline. No JVD or lymphadenopathy. CARDIOVASCULAR: Regular rate and rhythm without murmurs, gallops, or rubs. RESPIRATORY: Clear to auscultation. Breath sounds equal bilaterally. No wheezes , rales, or rhonchi. GASTROINTESTINAL: Abdomen soft, tender in the LLQ, nondistended. No guarding. Decreased bowel sounds. GENITOURINARY: Suprapubic tenderness with palpation. Fullness of the bladder appreciated. Cortes with yellow urine. MUSCULOSKELETAL: Extremities without cyanosis, or edema. Extensive clubbing noted. NEUROLOGICAL: Awake and alert. Motor and sensory grossly within normal limits. Normal speech. PSYCH: Mood and affect appropriate. Medications and IVs Current Medications Medications (Trade) Dose Ordered Sig/David Route Start Time Stop Time Status Last Admin (NS Flush) 2 ml UNSCH PRN IV FLUSH 01/09/17 05:00 (NS Flush) 2 ml BID IV FLUSH 01/09/17 09:00 01/14/17 08:32 (Narcan Inj) 0.4 mg UNSCH PRN IV 01/09/17 05:00 (Colace) 100 mg BID PO 01/10/17 13:30 01/14/17 08:22 (Senokot) 17.2 mg DAILY PO 01/10/17 13:30 01/14/17 08:23 Magnesium Hydroxide 30 ml 30 ml DAILY PO 01/10/17 13:30 01/14/17 08:22 (Rocephin Inj/NS Inj) 100 ml @ 200 mls/hr Q24H IV 01/12/17 21:00 01/13/17 20:26 (Protonix) 20 mg DAILY PO 01/13/17 09:00 01/14/17 08:22 (Roxicodone) 5 mg Q4H PRN PO 01/13/17 12:15 01/14/17 08:28 (Miralax) 17 gm DAILY PO 01/13/17 12:15 01/14/17 08:23 (Ambien) 5 mg HS PRN PO 01/13/17 12:15 (Heparin Inj) 5,000 units Q8HR SQ 01/13/17 14:00 01/13/17 20:27 A/P Assessment and Plan This is a pleasant 61 y/o Male with Pancreatic cystic Mass, Abdomen/Pelvis CT ()----> 1. Severe hydronephrosis and hydroureter with a markedly abnormal heterogeneous thick walled trabeculated urinary bladder. It is difficult to exclude a bladder malignancy given the markedly heterogeneous appearance. For example a prominent area of thick trabeculated bladder wall is noted superiorly seen best on axial image 52 where a 5.3 x 4.6 cm masslike area is noted. CEA 23.1, CA19-9 228.3, AFP 3.6. Oncology following. Recommends EUS with FNA. Spoke with Dr. Venegas in invasive radiology, no clear window, would have to go through small bowel for FNA, recommend EUS. Per Dr. Jean Flower, the mass seems to more cystic and may be high risk for cutaneous fistula. Pt was accepted at [facility], Dr Bee as same day case for EUS with biopsy and will send patient back afterwards. However, this was not approved by the hospital here and his appointment was cancelled. We recommend EUS with FNA, possible cyst gastrostomy tube if needed, but Dr. Lara is not available until 01/19. From a GI standpoint, pt is stable and could be discharged and return to the hospital on Thursday for procedure. However, patient does not want to be discharged prior to having this done and states that he will not be able to follow up or come back to the hospital if he is discharged before then. Will get GS evaluation, but likely pt will need to have EUS with bx and cyst gastrostomy tube on Thursday. Weight loss 50 Pounds in the past 4 months. Urinary Retention/ Bladder Mass/ Leukocytosis/Urinary Tract Infection. Presented to the ED for suprapubic pain, hematuria, and penile discharge with bladder mass found on abdominal/pelvis CT with IV contrast. Urology consult appreciated. The pt is s/p cystoscopy and direct visual internal urethrotomy of 2 bulbar urethral strictures. Culture growing E coli. - follow up with urology. Continue Cortes. - will return to by mouth Ciprofloxacin, already received Ceftriaxone today. Odynophagia with weight loss/ Pancreatic mass Suspect possible GI malignancy. Gastroenterology consult appreciated. - Protonix daily. - EUS per GI when able to schedule. - oncology consult appreciated. Constipation Improved. Acute respiratory insufficiency Improved, continue Bronchodilator, Mucolytic and incentive spirometry. Anemia stable DVT prophylaxis: Heparin Discussed with patient in the room and also with Loss Prevention Representative who asked me to talk with Interventional orthopedic specialist Doctor Eder del valle phone number [phone] but he is not in the Hospital and do not answer in his office, will try to talk to him to evaluate plan of care until now awaiting for the right Specialist to perform the EUS Biopsy. Discharge Planning Once cleared by specialists Uvaldo Louise MD Jan 14, 2017 10:15
--- NOTE | 2017-01-14 16:28 | HHI.GIFU ---
Subjective Remarks Pt says he's fine, will not contribute further. (Mei Galeas INDUSTRI[employer] G[employer]TER) Objective Vitals I&O Vital Signs Date Time Temp Pulse Resp B/P Pulse Ox O2 Delivery O2 Flow Rate FiO2 01/14/17 16:00 97.5 60 19 92/58 98 01/14/17 12:00 97.3 64 20 98/64 96 01/14/17 10:36 94 21 01/14/17 09:28 18 01/14/17 08:20 96 Room Air 01/14/17 08:00 97.2 58 18 100/57 96 01/14/17 04:00 97.5 61 16 103/62 92 01/14/17 00:00 97.2 77 18 136/76 100 01/13/17 22:25 97 21 01/13/17 20:00 96.6 76 18 117/76 98 01/13/17 20:00 Room Air 01/13/17 20:00 90 I/O 01/13/17 01/13/17 01/13/17 01/14/17 01/14/17 01/14/17 07:00 15:00 23:00 07:00 15:00 23:00 Intake Total 920 ml 1320 ml Output Total 1600 ml 600 ml 725 ml 1900 ml Balance -1600 ml 320 ml -725 ml -580 ml Intake Oral 920 ml 1320 ml Output Urine Total 1600 ml 600 ml 725 ml 1900 ml # Voids 0 # Bowel Movements 0 1 0 1 Laboratory Laboratory Tests Test 01/13/17 22:39 Reticulocyte Count 1.9 Absolute Reticulocyte Count 59.5 Haptoglobin 262 Iron Level 56 Total Iron Binding Capacity 179 Percent Iron Saturation 31.3 Ferritin 706 Lactate Dehydrogenase 131 C-Reactive Protein 2.00 Vitamin B12 Level 542 Date/Time Procedure Status Source Growth 01/13/17 04:40 Aerobic Blood Culture - Preliminary Resulted Blood Peripheral NO GROWTH IN 1 DAY 01/13/17 04:40 Anaerobic Blood Culture - Preliminary Resulted Blood Peripheral NO GROWTH IN 1 DAY Imaging Last Impressions Abdomen MRI 01/11/17 0000 Signed Impressions: Service Date/Time: Wednesday, January 11, 2017 18:39 - CONCLUSION: 1. Significant hydronephrosis bilaterally. 2. Cystic mass in the lesser sac does not demonstrate any abnormal enhancement and differential considerations includes benign cystic lesions in addition to cystic neoplasm such as a cystadenoma/cystadenocarcinoma or even IPMN. Love Hernandez MD Chest X-Ray 01/09/17 0000 Signed Impressions: Service Date/Time: Monday, January 09, 2017 05:30 - CONCLUSION: No acute disease. Bienvenido Shaikh MD Abdomen/Pelvis CT 01/09/17 0000 Signed Impressions: Service Date/Time: Monday, January 09, 2017 03:38 - CONCLUSION: 1. Severe hydronephrosis and hydroureter with a markedly abnormal heterogeneous thick walled trabeculated urinary bladder. It is difficult to exclude a bladder malignancy given the markedly heterogeneous appearance. For example a prominent area of thick trabeculated bladder wall is noted superiorly seen best on axial image 52 where a 5.3 x 4.6 cm masslike area is noted. 2. Extensive atherosclerotic disease. 3. Prominent heterogeneous prostate. 4. 5. Indeterminate cystic-appearing mass of the upper abdomen appears to arise from the pancreas with extrapancreatic component suggesting a large mildly complex cyst. There is some peripheral punctate calcification. Surgery should be considered for asymptomatic pancreatic cysts >3 cm, generally subsequent to aspiration. If the lesion is a cystadenoma, surgery is deferred until the cyst is > 4 cm. Solid pseudopapillary epithelial neoplasm tumors should be resected. Patient factors ultimately determine the appropriateness of surgical treatment. Reference: 6. Allenland LL, Jolanta SG, [place] RM et al; Managing Incidental Findings on Abdominal CT: White Paper of the ACR Incidental Findings Committee. J Am Min Radiol 2010;7:754-773. Bienvenido Shaikh MD Physical Exam HEENT: Normocephalic; atraumatic CHEST: Resp. even/unlabored, diminished CARDIAC: RRR ABDOMEN: Soft, nondistended, nontender; no hepatosplenomegaly; bowel sounds are present in all four quadrants. EXTREMITIES: No clubbing, cyanosis, or edema. SKIN: Normal; no rash; no jaundice. MANAGER MARKET: Alert, oriented. (Mei Galeas) Assessment and Plan Plan ASSESSMENT - Pancreatic cystic mass. Abdomen/Pelvis CT (01/09/17)----> 1. Severe hydronephrosis and hydroureter with a markedly abnormal heterogeneous thick walled trabeculated urinary bladder. It is difficult to exclude a bladder malignancy given the markedly heterogeneous appearance. For example a prominent area of thick trabeculated bladder wall is noted superiorly seen best on axial image 52 where a 5.3 x 4.6 cm masslike area is noted. 2. Extensive atherosclerotic disease. 3. Prominent heterogeneous prostate. 4. Indeterminate cystic-appearing mass of the upper abdomen appears to arise from the pancreas with extrapancreatic component suggesting a large mildly complex cyst. There is some peripheral punctate calcification. Surgery should be considered for asymptomatic pancreatic cysts >3 cm, generally subsequent to aspiration. If the lesion is a cystadenoma, surgery is deferred until the commercial real estate agent is > 4 cm. Solid pseudopapillary epithelial neoplasm tumors should be resected. Patient factors ultimately determine the appropriateness of surgical treatment. 5. Juanita LL, Jolanta SG, Neftali RM et al; Managing Incidental Findings on Abdominal CT: White Paper of the ACR Incidental Findings Committee. Abdomen MRI (01/11/17)-----> 1. Significant hydronephrosis bilaterally. 2. Cystic mass in the lesser sac does not demonstrate any abnormal enhancement and differential considerations includes benign cystic lesions in addition to cystic neoplasm such as a cystadenoma/cystadenocarcinoma or even IPMN. He is not aware of any history of pancreatitis, but does have extensive etoh use history. CEA 23.1, CA19-9 228.3, AFP 3.6. Oncology following. Recommends EUS with FNA. Spoke with Dr. Venegas in invasive radiology, no clear window, would have to go through small bowel for FNA, recommend EUS. Per Dr. Jean Flower, the mass seems to more cystic and may be high risk for cutaneous fistula. Pt was accepted at [facility], Dr Bee as same day case for EUS with biopsy and will send patient back afterwards. However , this was not approved by the hospital here and his appointment was cancelled. We recommend EUS with FNA, possible cyst gastrostomy tube if needed, but Dr. Lara is not available until 01/19. From a GI standpoint, pt is stable and could be discharged and return to the hospital on Thursday for procedure. However, patient does not want to be discharged prior to having this done and states that he will not be able to follow up or come back to the hospital if he is discharged before then. Will get GS evaluation, but likely pt will need to have EUS with bx and cyst gastrostomy tube on Thursday. - Weight loss. 50 lb weight loss in past 4 months. Never had egd/colonoscopy - Odynophagia, resolved. - Anemia. H/H 9.6/29.0. No acute blood loss. - Leukocytosis, improved. WBC 11.0. Urine cx with GNR. BCx pending. Cipro - Urinary retention, stricture. S/P cystoscopy and direct visual internal urethrotomy of 2 bulbar urethral strictures (01/09/17) per . PLAN - PRIMO - PPI - Supportive care - await GS consult to see if they could possibly do pancreatic biopsy and drainage if needed - tentatively EUS with bx and cyst gastrostomy tube on Thursday. - If arrangements could be made to have patient return on Thursday for EUS with bx , drainage if needed, then patient could be discharged home and return to hospital Thursday from GI standpoint - Further recommendations to follow based on results of above - Pt seen and examined by Dr. Hightower and myself and this note was written on her behalf . (Mei Galeas) Mei Galeas Jan 14, 2017 16:28 Didi Hightower MD Jan 14, 2017 17:36
--- NOTE | 2017-01-14 23:22 | PD.ONC.PN ---
Subjective Subjective Remarks no new complaints resting comfortably no bleeding Objective Data Date Time Temp Pulse Resp B/P Pulse Ox O2 Delivery O2 Flow Rate FiO2 01/14/17 20:00 97.8 68 17 101/66 100 01/14/17 16:00 97.5 60 19 92/58 98 01/14/17 15:11 18 01/14/17 12:00 97.3 64 20 98/64 96 01/14/17 10:36 94 21 01/14/17 08:20 96 Room Air 01/14/17 08:00 85 01/14/17 08:00 97.2 58 18 100/57 96 01/14/17 08:00 73 01/14/17 04:00 97.5 61 16 103/62 92 01/14/17 00:00 97.2 77 18 136/76 100 01/14/17 01/14/17 01/14/17 07:00 15:00 23:00 Intake Total 1320 ml Output Total 1900 ml Balance -580 ml Result Diagram: 01/12/1716 01/12/17 0516 Culture Results Microbiology Date/Time Procedure Status Source Growth 01/13/17 04:30 Aerobic Blood Culture - Preliminary Resulted Blood Peripheral NO GROWTH IN 1 DAY 01/13/17 04:30 Anaerobic Blood Culture - Preliminary Resulted Blood Peripheral NO GROWTH IN 1 DAY 01/13/17 04:40 Aerobic Blood Culture - Preliminary Resulted Blood Peripheral NO GROWTH IN 1 DAY 01/13/17 04:40 Anaerobic Blood Culture - Preliminary Resulted Blood Peripheral NO GROWTH IN 1 DAY Administered Medications Medications (Trade) Dose Ordered Sig/David Route PRN Reason Start Time Stop Time Status Last Admin Dose Admin Sodium Chloride (NS Flush) 2 ml BID IV FLUSH 01/09/17 09:00 01/14/17 20:59 Docusate Sodium (Colace) 100 mg BID PO 01/10/17 13:30 01/14/17 08:22 Sennosides (Senokot) 17.2 mg DAILY PO 01/10/17 13:30 01/14/17 08:23 Magnesium Hydroxide (Milk Of Magnesia Liq) 30 ml DAILY PO 01/10/17 13:30 01/14/17 08:22 Pantoprazole Sodium (Protonix) 20 mg DAILY PO 01/13/17 09:00 01/14/17 08:22 Oxycodone HCl (Roxicodone) 5 mg Q4H PRN PO pain 3-10 01/13/17 12:15 01/14/17 14:11 Polyethylene Glycol (Miralax) 17 gm DAILY PO 01/13/17 12:15 01/14/17 08:23 Heparin Sodium (Porcine) (Heparin Inj) 5,000 units Q8HR SQ 01/13/17 14:00 01/14/17 20:56 Objective Remarks GENERAL: nad, thin cachectic SKIN: Warm and dry. HEAD: Normocephalic. EYES: No scleral icterus. No injection or drainage. NECK: Supple, trachea midline. No JVD or lymphadenopathy. LYMPHATIC: No adenopathy. CARDIOVASCULAR: Regular rate and rhythm without murmurs. RESPIRATORY: Breath sounds equal bilaterally. No accessory muscle use. GASTROINTESTINAL: Abdomen soft, non-tender, nondistended. EXTREMITIES: No cyanosis, or edema. . Assessment/Plan Problem List: (1) Pancreatic mass Status: Acute Plan: -- indeterminate cystic-appearing mass arising from pancreas with extra- pancreatic component. appears to be a large complex cyst but there is also a possibility of pancreatic adenocarcinoma. --CEA and CA 19-9 levels are elevated, --needs endoscopic ultrasound with a biopsy. --GI following. Once his creatinine improves, will also need to obtain a CT of the chest with contrast. (2) Bladder mass Status: Acute Plan: --s/p cystoscopy and direct visual internal urethrotomy of two bulbar ureteral structures. On cystoscopy, there was no discrete bladder tumor. --on IV Ciprofloxacin. has a Cortes catheter in place. (3) Normocytic anemia Status: Acute Plan: --will obtain B12, RBC folate, iron studies Assessment 61y/o male with a pancreatic mass, admitted with one month h/o suprapubic pain, penile discharge and hematuria history of alcohol abuse, tobacco abuse and drug abuse including marijuana and cocaine Plan 1. Anemia of chronic inflammation - Hb stable - no blood products today 2. Pancreatic mass - awaiting pancreatic biopsy and EUS Trell Webster MD Jan 14, 2017 23:22
[2017-01-15] VITALS (7 sets, daily range): BP systolic 92–116; BP diastolic 62–68; PULSE 56–73; RESP 17–20; TEMP 97–98.4; O2SAT 95–97
[2017-01-15] MEDS: HEPARIN SODIUM - SQ 10,000 UNITS/ML VIAL SQ SCH ×3 (04:33→22:17)
--- NOTE | 2017-01-15 05:52 | MB ---
cc: JOSIEKOBILUIS DATE OF CONSULTATION 01/14/[address] Salty Mary MD REASON FOR CONSULTATION Pancreatic cyst. HISTORY OF PRESENT ILLNESS The patient is a 61-year year-old male who was admitted to [facility] for urinary retention and hematuria. The patient was found to have a very abnormal bladder anatomy and urethral stricture which was treated by Dr. Carrera. The patient currently has a Cortes catheter in place. On imaging scans, CT scan performed on 01/09 and MRI performed on 01/11, the patient was noted to have a cyst in the lesser sac, potentially involving the pancreas. Differential was pseudocyst or cystadenoma or malignancy. The patients has a history of pancreatitis and alcohol use as well as mildly elevated CA19-9. The patient currently states he has had no abdominal pain. His only complaint is weight loss despite eating well. The patient's laboratory values are improved with improved creatinine after relief of obstruction. REVIEW OF SYSTEMS A 12-point review of systems done with the patient is negative except the pertinent positives mentioned above in the History of Present Illness. PAST MEDICAL HISTORY The patient does not have a primary care doctor. Past medical history is unknown. Denies any chronic problems. PAST SURGICAL SISTER Right shoulder surgery. No abdominal surgeries. ALLERGIES No known drug allergies. MEDICATIONS No home medications. SOCIAL HISTORY The patient has a history of alcohol abuse as well as marijuana and cocaine use as well as tobacco abuse with use of cigarettes daily. FAMILY HISTORY No history of pancreatic malignancies. PHYSICAL EXAMINATION VITAL SIGNS: Temperature 97.5 degrees, blood pressure 92/58, heart rate 60. GENERAL: The patient is a chronically unhealthy, thin -S[place]i male in no acute distress. HEAD: Normocephalic, atraumatic. Pupils round, reactive to light. Sclerae anicteric. Mucous membranes are moist. NECK: Supple. No JVD. LUNGS: Clear to auscultation bilaterally. Nonlabored breathing pattern. HEART: Regular rate and rhythm. ABDOMEN: Soft, nondistended. Normal bowel sounds. No surgical scars. No hernias. No masses. GENITOURINARY: Cortes catheter is in place. EXTREMITIES: No clubbing, cyanosis or edema. BACK: No CVA tenderness. NEUROLOGIC EXAM: The patient is oriented x 3. Insight is intact. Moving all extremities non-focally. Cranial nerves II-XII are grossly intact. ASSESSMENT AND PLAN 1. The patient is a 61-year male with outlet obstruction treated with cystoscopy by Dr. Carrera. The patient has a very abnormal bladder found on imaging and I would defer to Urology for further diagnosis and treatment of this problem. 2. Pancreatic cyst. Clinically this is concerning for a chronic pseudocyst, potentially years old as the patient has a history of alcohol use and does describe episodes of severe epigastric pain that could be consistent with acute pancreatitis. Any type of malignancy is less likely as it appears to be a very thin-walled, simple type cyst. I do agree with further evaluation including EUS and aspiration or biopsy. I do not recommend any surgical attention at this time unless a malignancy or high risk of malignancy is identified. If the patient is found have a benign, asymptomatic cyst or low risk for malignancy type process, we would recommend followup. Thank you very much for this consultation. MD NAYE Augustin/ALIZA /6:24 PM /5:35 AM
[2017-01-15] MEDS: SENNOSIDES 8.6 MG TAB PO SCH (07:58)
[2017-01-15] MEDS: DOCUSATE SODIUM 100 MG CAP PO SCH ×2 (07:58→22:16)
[2017-01-15] MEDS: CIPROFLOXACIN 500 MG TAB PO SCH ×2 (07:58→22:16)
[2017-01-15] MEDS: POLYETHYLENE GLYCOL 17 GM PKG PO SCH (07:58)
[2017-01-15] MEDS: PANTOPRAZOLE SOD 20 MG DELAYED RELEASE TAB PO SCH (07:58)
[2017-01-15] MEDS: SODIUM CHLORIDE 0.9% FLUSH 10 ML FLUSH IV FLUSH SCH ×2 (07:59→22:20)
[2017-01-15] MEDS: MAGNESIUM HYDROXIDE SUSP 30 ML CUP PO SCH (07:59)
--- NOTE | 2017-01-15 09:34 | HHI.PR ---
Subjective Remarks This is a pleasant 61 y/o Male with Pancreatic cystic Mass, Abdomen/Pelvis CT ()----> 1. Severe hydronephrosis and hydroureter with a markedly abnormal heterogeneous thick walled trabeculated urinary bladder. It is difficult to exclude a bladder malignancy given the markedly heterogeneous appearance. For example a prominent area of thick trabeculated bladder wall is noted superiorly seen best on axial image 52 where a 5.3 x 4.6 cm masslike area is noted. CEA 23.1, CA19-9 228.3, AFP 3.6. Oncology following. Recommends EUS with FNA. Spoke with Dr. Venegas in invasive radiology, no clear window, would have to go through small bowel for FNA, recommend EUS. Per Dr. Jean Flower, the mass seems to more cystic and may be high risk for cutaneous fistula. Pt was accepted at [facility], Dr Bee as same day case for EUS with biopsy and will send patient back afterwards. However, this was not approved by the hospital here and his appointment was cancelled. We recommend EUS with FNA, possible cyst gastrostomy tube if needed, but Dr. Lara is not available until 01/19. From a GI standpoint, pt is stable and could be discharged and return to the hospital on Thursday for procedure. However, patient does not want to be discharged prior to having this done and states that he will not be able to follow up or come back to the hospital if he is discharged before then. Will get GS evaluation, but likely pt will need to have EUS with bx and cyst gastrostomy tube on Thursday. Weight loss 50 Pounds in the past 4 months. 01/14: Seen in his bedroom stable, no nausea, vomit or diarrhea. 01/15: Followed by GI specialist and recommended EUS with FNA possible cyst gastrotomy tube if needed, doctor Lara is available on January 19, from GI specialist the patient may be discharged and come back next Thursday for procedure, but the patient does not want to be discharged he states he wont be able to follow up or come back to the hospital if discharged, Biopsy and Gastrostomy tube next Thursday, Odynophagia resolved, Leukocytosis improved on Cipro, Urinary retention stricture, status post cystoscopy and direct visual internal Urethrotomy 2 bulbar urethral strictures 01/09/17 per , to continue PPI , Supportive care. Seen in his bedroom and discussed with supplier manager Miss Vernon the patient will be transferred to a [facility] health care for Physical therapy and skilled nurse to continue his Cortes Catheter management and will come back to this facility on Thursday to continue his care. as recommended by GI specialist. today no Nausea, vomit or diarrhea, discussed with patient and he understands the plan of care. Objective Vital Signs Date Time Temp Pulse Resp B/P Pulse Ox O2 Delivery O2 Flow Rate FiO2 01/15/17 08:00 97.6 56 20 110/67 96 01/15/17 04:00 97.0 68 17 101/67 97 01/15/17 00:00 97.4 70 17 104/67 96 01/14/17 20:40 Room Air 01/14/17 20:00 97.8 68 17 101/66 100 01/14/17 16:00 97.5 60 19 92/58 98 01/14/17 15:11 18 01/14/17 12:00 97.3 64 20 98/64 96 01/14/17 10:36 94 21 I/O 01/14/17 01/14/17 01/14/17 01/15/17 01/15/17 01/15/17 06:59 14:59 22:59 06:59 14:59 22:59 Intake Total 1320 ml 240 ml 240 ml 120 ml Output Total 1900 ml 1050 ml 600 ml Balance -580 ml -810 ml -360 ml 120 ml Intake Oral 1320 ml 240 ml 240 ml 120 ml Output Urine Total 1900 ml 1050 ml 600 ml # Bowel Movements 1 Result Diagram: 01/12/17 0516 01/12/17 0516 Imaging Last Impressions Abdomen MRI 01/11/17 0000 Signed Impressions: Service Date/Time: Wednesday, January 11, 2017 18:39 - CONCLUSION: 1. Significant hydronephrosis bilaterally. 2. Cystic mass in the lesser sac does not demonstrate any abnormal enhancement and differential considerations includes benign cystic lesions in addition to cystic neoplasm such as a cystadenoma/cystadenocarcinoma or even IPMN. Love Hernandez MD Chest X-Ray 01/09/17 0000 Signed Impressions: Service Date/Time: Monday, January 09, 2017 05:30 - CONCLUSION: No acute disease. Bienvenido Shaikh MD Abdomen/Pelvis CT 01/09/17 0000 Signed Impressions: Service Date/Time: Monday, January 09, 2017 03:38 - CONCLUSION: 1. Severe hydronephrosis and hydroureter with a markedly abnormal heterogeneous thick walled trabeculated urinary bladder. It is difficult to exclude a bladder malignancy given the markedly heterogeneous appearance. For example a prominent area of thick trabeculated bladder wall is noted superiorly seen best on axial image 52 where a 5.3 x 4.6 cm masslike area is noted. 2. Extensive atherosclerotic disease. 3. Prominent heterogeneous prostate. 4. 5. Indeterminate cystic-appearing mass of the upper abdomen appears to arise from the pancreas with extrapancreatic component suggesting a large mildly complex cyst. There is some peripheral punctate calcification. Surgery should be considered for asymptomatic pancreatic cysts >3 cm, generally subsequent to aspiration. If the lesion is a cystadenoma, surgery is deferred until the cyst is > 4 cm. Solid pseudopapillary epithelial neoplasm tumors should be resected. Patient factors ultimately determine the appropriateness of surgical treatment. Reference: 6. [place] LL, Jolanta SG, Neftali RM et al; Managing Incidental Findings on Abdominal CT: White Paper of the ACR Incidental Findings Committee. J Am Min Radiol 2010;7:754-773. Bienvenido Shaikh MD Procedures cystoscopy and direct visual internal urethrotomy of 2 bulbar urethral strictures Other Results Laboratory Tests Test 01/09/17 01/09/17 01/12/17 01/13/17 01:50 04:26 05:16 22:39 Neutrophils (%) (Auto) 84.9 % Lymphocytes (%) (Auto) 9.3 % Monocytes (%) (Auto) 5.1 % Eosinophils (%) (Auto) 0.2 % Basophils (%) (Auto) 0.5 % Neutrophils # (Auto) 19.2 TH/MM3 Lymphocytes # (Auto) 2.1 TH/MM3 Monocytes # (Auto) 1.2 TH/MM3 Eosinophils # (Auto) 0.0 TH/MM3 Basophils # (Auto) 0.1 TH/MM3 CBC Comment DIFF FINAL Differential Comment Urine Color YELLOW Urine Turbidity CLOUDY Urine pH 8.0 Urine Specific [place] 1.009 Urine Protein 100 mg/dL Urine Glucose (UA) NEG mg/dL Urine Ketones NEG mg/dL Urine Occult Blood MOD Urine Nitrite NEG Urine Bilirubin NEG Urine Urobilinogen LESS THAN 2.0 MG/DL Urine Leukocyte Esterase LARGE Urine RBC 15 /hpf Urine WBC /hpf Urine WBC Clumps MOD Urine Bacteria MANY /hpf Urine Mucus MANY /lpf Microscopic Urinalysis Comment CULTURE INDICATED White Blood Count 11.0 TH/MM3 Red Blood Count 3.02 MIL/MM3 Hemoglobin 9.6 GM/DL Hematocrit 29.0 % Mean Corpuscular Volume 95.9 FL Mean Corpuscular Hemoglobin 31.8 PG Mean Corpuscular Hemoglobin 33.2 % Concent Red Cell Distribution Width 13.2 % Platelet Count 474 TH/MM3 Mean Platelet Volume 8.4 FL Sodium Level 137 MEQ/L Potassium Level 3.8 MEQ/L Chloride Level 102 MEQ/L Carbon Dioxide Level 28.6 MEQ/L Anion Gap 6 MEQ/L Blood Urea Nitrogen 11 MG/DL Creatinine 1.06 MG/DL Estimat Glomerular Filtration 86 ML/MIN Rate Random Glucose 105 MG/DL Calcium Level 8.8 MG/DL Magnesium Level 1.7 MG/DL Reticulocyte Count 1.9 % Absolute Reticulocyte Count 59.5 MIL/L Haptoglobin 262 MG/DL Iron Level 56 MCG/DL Total Iron Binding Capacity 179 MCG/DL Percent Iron Saturation 31.3 % Ferritin 706 NG/ML Lactate Dehydrogenase 131 U/L C-Reactive Protein 2.00 MG/DL Vitamin B12 Level 542 PG/ML Objective Remarks GENERAL: No apparent Distress, denotes chronic illness. SKIN: No rashes, ecchymoses or lesions. Cool and dry. HEAD: Atraumatic. Normocephalic. EYES: No scleral icterus. No injection or drainage. ENT: Nose without bleeding, purulent drainage. NECK: Trachea midline. No JVD or lymphadenopathy. CARDIOVASCULAR: Regular rate and rhythm without murmurs, gallops, or rubs. RESPIRATORY: Clear to auscultation. Breath sounds equal bilaterally. No wheezes , rales, or rhonchi. GASTROINTESTINAL: Abdomen soft, non tender positive bowel sounds. GENITOURINARY: Cortes with yellow urine. MUSCULOSKELETAL: Extremities without cyanosis, or edema. Extensive clubbing noted. NEUROLOGICAL: Awake and alert. Motor and sensory grossly within normal limits. Normal speech. PSYCH: Mood and affect appropriate. Medications and IVs Current Medications Medications (Trade) Dose Ordered Sig/David Route Start Time Stop Time Status Last Admin (NS Flush) 2 ml UNSCH PRN IV FLUSH 01/09/17 05:00 (NS Flush) 2 ml BID IV FLUSH 01/09/17 09:00 01/15/17 07:59 (Narcan Inj) 0.4 mg UNSCH PRN IV 01/09/17 05:00 (Colace) 100 mg BID PO 01/10/17 13:30 01/15/17 07:58 (Senokot) 17.2 mg DAILY PO 01/10/17 13:30 01/15/17 07:58 (Milk Of Magnesia Liq) 30 ml DAILY PO 01/10/17 13:30 01/15/17 07:59 (Protonix) 20 mg DAILY PO 01/13/17 09:00 01/15/17 07:58 (Roxicodone) 5 mg Q4H PRN PO 01/13/17 12:15 01/15/17 07:59 (Miralax) 17 gm DAILY PO 01/13/17 12:15 01/15/17 07:58 (Ambien) 5 mg HS PRN PO 01/13/17 12:15 (Heparin Inj) 5,000 units Q8HR SQ 01/13/17 14:00 01/15/17 04:33 (Cipro) 500 mg Q12HR PO 01/15/17 09:00 01/15/17 07:58 A/P Assessment and Plan This is a pleasant 61 y/o Male with Pancreatic cystic Mass, Abdomen/Pelvis CT ()----> 1. Severe hydronephrosis and hydroureter with a markedly abnormal heterogeneous thick walled trabeculated urinary bladder. It is difficult to exclude a bladder malignancy given the markedly heterogeneous appearance. For example a prominent area of thick trabeculated bladder wall is noted superiorly seen best on axial image 52 where a 5.3 x 4.6 cm masslike area is noted. CEA 23.1, CA19-9 228.3, AFP 3.6. Oncology following. Recommends EUS with FNA. Spoke with Dr. Venegas in invasive radiology, no clear window, would have to go through small bowel for FNA, recommend EUS. Per Dr. Jean Flower, the mass seems to more cystic and may be high risk for cutaneous fistula. Pt was accepted at [facility], Dr Bee as same day case for EUS with biopsy and will send patient back afterwards. However, this was not approved by the hospital here and his appointment was cancelled. We recommend EUS with FNA, possible cyst gastrostomy tube if needed, but Dr. Lara is not available until 01/19. From a GI standpoint, pt is stable and could be discharged and return to the hospital on Thursday for procedure. However, patient does not want to be discharged prior to having this done and states that he will not be able to follow up or come back to the hospital if he is discharged before then. Will get GS evaluation, but likely pt will need to have EUS with bx and cyst gastrostomy tube on Thursday. Weight loss 50 Pounds in the past 4 months. Urinary Retention/ Bladder Mass/ Leukocytosis/Urinary Tract Infection. Presented to the ED for suprapubic pain, hematuria, and penile discharge with bladder mass found on abdominal/pelvis CT with IV contrast. Urology consult appreciated. The pt is s/p cystoscopy and direct visual internal urethrotomy of 2 bulbar urethral strictures. Culture growing E coli. - follow up with urology. Continue Cortes. - will return to by mouth Ciprofloxacin he will continue for five days more. Odynophagia with weight loss/ Pancreatic mass Suspect possible GI malignancy. Gastroenterology consult appreciated. - Protonix daily. - EUS per GI when able to schedule. - oncology consult appreciated. GI specialist Notes: 01/15: Followed by GI specialist and recommended EUS with FNA possible cyst gastrotomy tube if needed, doctor Lara is available on January 19, from GI specialist the patient may be discharged and come back next Thursday for procedure, but the patient does not want to be discharged he states he wont be able to follow up or come back to the hospital if discharged, Biopsy and Gastrostomy tube next Thursday, Odynophagia resolved, Leukocytosis improved on Cipro, Urinary retention stricture, status post cystoscopy and direct visual internal Urethrotomy 2 bulbar urethral strictures 01/09/17 per , to continue PPI , Supportive care. Seen in his bedroom and discussed with supplier manager Miss Vernon the patient will be transferred to a [facility] health care for Physical therapy and skilled nurse to continue his Cortes Catheter management and will come back to this facility on Thursday to continue his care. as recommended by GI specialist. today no Nausea, vomit or diarrhea, discussed with patient and he understands the plan of care. Constipation Improved. Acute respiratory insufficiency Improved, continue Bronchodilator, Mucolytic and incentive spirometry. Anemia stable DVT prophylaxis: Heparin Discussed with patient and Janeen Die Maintenance the patient will go to a local Hotel paid by [facility] to continue Physical Therapy and skilled nurse, also will be followed by Doctor Jyothi Headley as outpatient will come bck to this facility on January 19 2017 to continue his care. Discharge Planning Discharge home on [facility] and comes back on January 19 2017 Uvaldo Louise MD Jan 15, 2017 09:34
[2017-01-15] MEDS ORDERED: LACTCAP8 PO (10:37)
[2017-01-15] MEDS ORDERED: OXYC-392 PO (10:37)
[2017-01-15] MEDS ORDERED: CIPR-9 PO (10:37)
--- NOTE | 2017-01-15 10:38 | HHI.FF ---
Face to Face Verification Diagnosis: (1) Urinary retention (2) Bladder mass (3) Urethral stricture (4) Normocytic anemia (5) Pancreatic mass Physical Therapy Order: Evaluate and Treat, Improve ambulation, Strength and gait training Home Health Nursing Order: Medical education Signs/symptoms of disease process Medication education-adverse effect Nursing assessment with vital signs Cortes catheter maintenance Instructions: PATIENT NEEDS TO COME BACK TO THE HOSPITAL FOR Thursday I have seen patient Chema Purvis on 01/15/17. My clinical findings support the need for the requested home health care services because: Ltd mobility - disease progression Deconditioned w/ increased weakness I certify that my clinical findings support that this patient is homebound because: Unsafe to leave home unassisted Uvaldo Louise MD Jan 15, 2017 10:38
--- NOTE | 2017-01-15 10:48 | HHI.DS ---
Discharge Summary Admission Date Jan 09, 2017 at 04:51 Discharge Date: Jan 15, 2017 Admitting Diagnosis bladder mass, urinary retention (1) Bladder mass ICD Code: N32.89 Diagnosis: Principal (2) Urinary retention ICD Code: R33.9 Diagnosis: Principal Procedures cystoscopy and direct visual internal urethrotomy of 2 bulbar urethral strictures Brief History - From Admission Written by Lexi Otoole, acting as scribe for Dr. Castellanos on 01/09/17 at 05:06. Patient reports severe suprapubic pain that has been present for one month which progressively worsened. He reports milky discharge from penis and hematuria. He has also been experiencing shortness of breath, intermittent dizziness, he has lost 50 lbs in the past 3 - 4 months with loss of appetite, and odynophagia. Denies n/v/diarrhea, black or red stool. CBC/BMP: 01/12/17 0516 01/12/17 0516 Significant Findings Laboratory Tests Test 01/13/17 22:39 Haptoglobin 262 MG/DL (30-200) Iron Level 56 MCG/DL (65-175) Total Iron Binding Capacity 179 MCG/DL (250-450) Ferritin 706 NG/ML (26-388) C-Reactive Protein 2.00 MG/DL (0.00-0.30) Imaging Last Impressions Abdomen MRI 01/11/17 0000 Signed Impressions: Service Date/Time: Wednesday, January 11, 2017 18:39 - CONCLUSION: 1. Significant hydronephrosis bilaterally. 2. Cystic mass in the lesser sac does not demonstrate any abnormal enhancement and differential considerations includes benign cystic lesions in addition to cystic neoplasm such as a cystadenoma/cystadenocarcinoma or even IPMN. Love Hernandez MD Chest X-Ray 01/09/17 0000 Signed Impressions: Service Date/Time: Monday, January 09, 2017 05:30 - CONCLUSION: No acute disease. Bienvenido Shaikh MD Abdomen/Pelvis CT 01/09/17 0000 Signed Impressions: Service Date/Time: Monday, January 09, 2017 03:38 - CONCLUSION: 1. Severe hydronephrosis and hydroureter with a markedly abnormal heterogeneous thick walled trabeculated urinary bladder. It is difficult to exclude a bladder malignancy given the markedly heterogeneous appearance. For example a prominent area of thick trabeculated bladder wall is noted superiorly seen best on axial image 52 where a 5.3 x 4.6 cm masslike area is noted. 2. Extensive atherosclerotic disease. 3. Prominent heterogeneous prostate. 4. 5. Indeterminate cystic-appearing mass of the upper abdomen appears to arise from the pancreas with extrapancreatic component suggesting a large mildly complex cyst. There is some peripheral punctate calcification. Surgery should be considered for asymptomatic pancreatic cysts >3 cm, generally subsequent to aspiration. If the lesion is a cystadenoma, surgery is deferred until the cyst is > 4 cm. Solid pseudopapillary epithelial neoplasm tumors should be resected. Patient factors ultimately determine the appropriateness of surgical treatment. Reference: 6. Juanita LL, Jolanta SG, Neftali ARENAS et al; Managing Incidental Findings on Abdominal CT: White Paper of the ACR Incidental Findings Committee. J Am Min Radiol 2010;7:754-773. Bienvenido Shaikh MD PE at Discharge GENERAL: No apparent Distress, denotes chronic illness. SKIN: No rashes, ecchymoses or lesions. Cool and dry. HEAD: Atraumatic. Normocephalic. EYES: No scleral icterus. No injection or drainage. ENT: Nose without bleeding, purulent drainage. NECK: Trachea midline. No JVD or lymphadenopathy. CARDIOVASCULAR: Regular rate and rhythm without murmurs, gallops, or rubs. RESPIRATORY: Clear to auscultation. Breath sounds equal bilaterally. No wheezes , rales, or rhonchi. GASTROINTESTINAL: Abdomen soft, non tender positive bowel sounds. GENITOURINARY: Cortes with yellow urine. MUSCULOSKELETAL: Extremities without cyanosis, or edema. Extensive clubbing noted. NEUROLOGICAL: Awake and alert. Motor and sensory grossly within normal limits. Normal speech. PSYCH: Mood and affect appropriate. Hospital Course This is a pleasant 61 y/o Male with Pancreatic cystic Mass, Abdomen/Pelvis CT ()----> 1. Severe hydronephrosis and hydroureter with a markedly abnormal heterogeneous thick walled trabeculated urinary bladder. It is difficult to exclude a bladder malignancy given the markedly heterogeneous appearance. For example a prominent area of thick trabeculated bladder wall is noted superiorly seen best on axial image 52 where a 5.3 x 4.6 cm masslike area is noted. CEA 23.1, CA19-9 228.3, AFP 3.6. Oncology following. Recommends EUS with FNA. Spoke with Dr. Venegas in invasive radiology, no clear window, would have to go through small bowel for FNA, recommend EUS. Per Dr. Jean Flower, the mass seems to more cystic and may be high risk for cutaneous fistula. Pt was accepted at [facility], Dr Bee as same day case for EUS with biopsy and will send patient back afterwards. However, this was not approved by the hospital here and his appointment was cancelled. We recommend EUS with FNA, possible cyst gastrostomy tube if needed, but Dr. Lara is not available until 01/19. From a GI standpoint, pt is stable and could be discharged and return to the hospital on Thursday for procedure. However, patient does not want to be discharged prior to having this done and states that he will not be able to follow up or come back to the hospital if he is discharged before then. Will get GS evaluation, but likely pt will need to have EUS with bx and cyst gastrostomy tube on Thursday. Weight loss 50 Pounds in the past 4 months. 01/14: Seen in his bedroom stable, no nausea, vomit or diarrhea. 01/15: Followed by GI specialist and recommended EUS with FNA possible cyst gastrotomy tube if needed, doctor Lara is available on January 19, from GI specialist the patient may be discharged and come back next Thursday for procedure, but the patient does not want to be discharged he states he wont be able to follow up or come back to the hospital if discharged, Biopsy and Gastrostomy tube next Thursday, Odynophagia resolved, Leukocytosis improved on Cipro, Urinary retention stricture, status post cystoscopy and direct visual internal Urethrotomy 2 bulbar urethral strictures 01/09/17 per , to continue PPI , Supportive care. Seen in his bedroom and discussed with manager media Miss Vernon the patient will be transferred to a [facility] by [facility] on Home health care for Physical therapy and skilled nurse to continue his Cortes Catheter management and will come back to this facility on Thursday to continue his care. as recommended by GI specialist. today no Nausea, vomit or diarrhea, discussed with patient and he understands the plan of care. Assessment and Plan This is a pleasant 61 y/o Male with Pancreatic cystic Mass, Abdomen/Pelvis CT ()----> 1. Severe hydronephrosis and hydroureter with a markedly abnormal heterogeneous thick walled trabeculated urinary bladder. It is difficult to exclude a bladder malignancy given the markedly heterogeneous appearance. For example a prominent area of thick trabeculated bladder wall is noted superiorly seen best on axial image 52 where a 5.3 x 4.6 cm masslike area is noted. CEA 23.1, CA19-9 228.3, AFP 3.6. Oncology following. Recommends EUS with FNA. Spoke with Dr. Venegas in invasive radiology, no clear window, would have to go through small bowel for FNA, recommend EUS. Per Dr. Jean Flower, the mass seems to more cystic and may be high risk for cutaneous fistula. Pt was accepted at [facility], Dr Bee as same day case for EUS with biopsy and will send patient back afterwards. However, this was not approved by the hospital here and his appointment was cancelled. We recommend EUS with FNA, possible cyst gastrostomy tube if needed, but Dr. Lara is not available until 01/19. From a GI standpoint, pt is stable and could be discharged and return to the hospital on Thursday for procedure. However, patient does not want to be discharged prior to having this done and states that he will not be able to follow up or come back to the hospital if he is discharged before then. Will get GS evaluation, but likely pt will need to have EUS with bx and cyst gastrostomy tube on Thursday. Weight loss 50 Pounds in the past 4 months. Urinary Retention/ Bladder Mass/ Leukocytosis/Urinary Tract Infection. Presented to the ED for suprapubic pain, hematuria, and penile discharge with bladder mass found on abdominal/pelvis CT with IV contrast. Urology consult appreciated. The pt is s/p cystoscopy and direct visual internal urethrotomy of 2 bulbar urethral strictures. Culture growing E coli. - follow up with urology. Continue Cortes. - will return to by mouth Ciprofloxacin he will continue for five days more. Odynophagia with weight loss/ Pancreatic mass Suspect possible GI malignancy. Gastroenterology consult appreciated. - Protonix daily. - EUS per GI when able to schedule. - oncology consult appreciated. GI specialist Notes: 01/15: Followed by GI specialist and recommended EUS with FNA possible cyst gastrotomy tube if needed, doctor Marco is available on January 19, from GI specialist the patient may be discharged and come back next Thursday for procedure, but the patient does not want to be discharged he states he wont be able to follow up or come back to the hospital if discharged, Biopsy and Gastrostomy tube next Thursday, Odynophagia resolved, Leukocytosis improved on Cipro, Urinary retention stricture, status post cystoscopy and direct visual internal Urethrotomy 2 bulbar urethral strictures 01/09/17 per , to continue PPI , Supportive care. Seen in his bedroom and discussed with manager media Miss Vernon the patient will be transferred to a [facility] paid by [facility] on Home health care for Physical therapy and skilled nurse to continue his Cortes Catheter management and will come back to this facility on Thursday to continue his care. as recommended by GI specialist. today no Nausea, vomit or diarrhea, discussed with patient and he understands the plan of care. Constipation Improved. Acute respiratory insufficiency Improved, continue Bronchodilator, Mucolytic and incentive spirometry. Anemia stable DVT prophylaxis: Heparin Discussed with patient and Janeen Clipman the patient will go to a local Hotel paid by [facility] on Home Health Care to continue Physical Therapy and skilled nurse, also will be followed by Doctor Jyothi Headley as outpatient will come bck to this facility on January 19 2017 to continue his care. Discharge Planning Discharge home on [facility] and comes back on January 19 2017 Pt Condition on Discharge: Stable Discharge Disposition: Disch w/ Home Health Serv Discharge Time: > 30 minutes Discharge Instructions DIET: Follow Instructions for: As Tolerated, No Restrictions Activities you can perform: Regular-No Restrictions Uvaldo Louise MD Jan 15, 2017 10:47
--- NOTE | 2017-01-15 23:48 | PD.ONC.PN ---
Subjective Subjective Remarks seen earlier in the day patient wants to leave the hospital denies any pain. awaiting GI to do biopsy and EUS Objective Data Date Time Temp Pulse Resp B/P Pulse Ox O2 Delivery O2 Flow Rate FiO2 01/15/17 20:00 98.1 73 17 92/68 97 01/15/17 16:00 98.4 57 18 116/65 95 01/15/17 12:00 97.5 59 20 96/62 96 01/15/17 08:00 97.6 56 20 110/67 96 01/15/17 04:00 97.0 68 17 101/67 97 01/15/17 00:00 97.4 70 17 104/67 96 01/15/17 01/15/17 01/15/17 07:00 15:00 23:00 Intake Total 240 ml 1080 ml 240 ml Output Total 600 ml 1700 ml 1000 ml Balance -360 ml -620 ml -760 ml Result Diagram: 01/12/17 0516 01/12/17 0516 Culture Results Microbiology Date/Time Procedure Status Source Growth 01/13/17 04:30 Aerobic Blood Culture - Preliminary Resulted Blood Peripheral NO GROWTH IN 2 DAYS 01/13/17 04:30 Anaerobic Blood Culture - Preliminary Resulted Blood Peripheral NO GROWTH IN 2 DAYS 01/13/17 04:40 Aerobic Blood Culture - Preliminary Resulted Blood Peripheral NO GROWTH IN 2 DAYS 01/13/17 04:40 Anaerobic Blood Culture - Preliminary Resulted Blood Peripheral NO GROWTH IN 2 DAYS Administered Medications Medications (Trade) Dose Ordered Sig/David Route PRN Reason Start Time Stop Time Status Last Admin Dose Admin Sodium Chloride (NS Flush) 2 ml BID IV FLUSH 01/09/17 09:00 01/15/17 22:20 Docusate Sodium (Colace) 100 mg BID PO 01/10/17 13:30 01/15/17 22:16 Sennosides (Senokot) 17.2 mg DAILY PO 01/10/17 13:30 01/15/17 07:58 Magnesium Hydroxide (Milk Of Magnesia Liq) 30 ml DAILY PO 01/10/17 13:30 01/15/17 07:59 Pantoprazole Sodium (Protonix) 20 mg DAILY PO 01/13/17 09:00 01/15/17 07:58 Oxycodone HCl (Roxicodone) 5 mg Q4H PRN PO pain 3-10 01/13/17 12:15 01/15/17 18:30 Polyethylene Glycol (Miralax) 17 gm DAILY PO 01/13/17 12:15 01/15/17 07:58 Heparin Sodium (Porcine) (Heparin Inj) 5,000 units Q8HR SQ 01/13/17 14:00 01/15/17 22:17 Ciprofloxacin (Cipro) 500 mg Q12HR PO 01/15/17 09:00 01/15/17 22:16 Objective Remarks GENERAL: nad SKIN: Warm and dry. HEAD: Normocephalic. EYES: No scleral icterus. No injection or drainage. NECK: Supple, trachea midline. No JVD or lymphadenopathy. LYMPHATIC: No adenopathy. CARDIOVASCULAR: Regular rate and rhythm without murmurs. RESPIRATORY: Breath sounds equal bilaterally. No accessory muscle use. GASTROINTESTINAL: Abdomen soft, non-tender, nondistended. EXTREMITIES: No cyanosis, or edema. Assessment/Plan Problem List: (1) Pancreatic mass Status: Acute Plan: -- indeterminate cystic-appearing mass arising from pancreas with extra- pancreatic component. appears to be a large complex cyst but there is also a possibility of pancreatic adenocarcinoma. --CEA and CA 19-9 levels are elevated, --needs endoscopic ultrasound with a biopsy. --GI following. Once his creatinine improves, will also need to obtain a CT of the chest with contrast. (2) Bladder mass Status: Acute Plan: --s/p cystoscopy and direct visual internal urethrotomy of two bulbar ureteral structures. On cystoscopy, there was no discrete bladder tumor. --on IV Ciprofloxacin. has a Cortes catheter in place. (3) Normocytic anemia Status: Acute Plan: --will obtain B12, RBC folate, iron studies Assessment 61y/o male with a pancreatic mass, admitted with one month h/o suprapubic pain, penile discharge and hematuria history of alcohol abuse, tobacco abuse and drug abuse including marijuana and cocaine Plan 1. Anemia of chronic inflammation - no new labs today 2. Pancreatic mass - awaiting pancreatic biopsy and EUS I will follow from distance. pls call if any questions. If biopsy positive for malignancy--will make further recommendations Trell Webster MD Jan 15, 2017 23:48
[2017-01-16] VITALS: BP 98/64; PULSE 72; RESP 17; TEMP 97.6; O2SAT 97
[2017-01-16 04:00] VITALS: BP 95/62; PULSE 60; RESP 18; TEMP 97.2; O2SAT 95
[2017-01-16] MEDS: HEPARIN SODIUM - SQ 10,000 UNITS/ML VIAL SQ SCH ×3 (05:10→21:16)
[2017-01-16 08:00] VITALS: BP 116/63; PULSE 63; RESP 20; TEMP 98.8; O2SAT 96
[2017-01-16] MEDS: PANTOPRAZOLE SOD 20 MG DELAYED RELEASE TAB PO SCH (08:49)
[2017-01-16] MEDS: CIPROFLOXACIN 500 MG TAB PO SCH ×2 (08:50→21:15)
[2017-01-16] MEDS: DOCUSATE SODIUM 100 MG CAP PO SCH ×2 (08:50→21:15)
[2017-01-16] MEDS: POLYETHYLENE GLYCOL 17 GM PKG PO SCH (08:50)
[2017-01-16] MEDS: SENNOSIDES 8.6 MG TAB PO SCH (08:50)
[2017-01-16] MEDS: SODIUM CHLORIDE 0.9% FLUSH 10 ML FLUSH IV FLUSH SCH ×2 (08:50→21:19)
[2017-01-16] MEDS: MAGNESIUM HYDROXIDE SUSP 30 ML CUP PO SCH (08:50)
--- NOTE | 2017-01-16 10:23 | HHI.PR ---
Subjective Remarks This is a pleasant 61 y/o Male with Pancreatic cystic Mass, Abdomen/Pelvis CT ()----> 1. Severe hydronephrosis and hydroureter with a markedly abnormal heterogeneous thick walled trabeculated urinary bladder. It is difficult to exclude a bladder malignancy given the markedly heterogeneous appearance. For example a prominent area of thick trabeculated bladder wall is noted superiorly seen best on axial image 52 where a 5.3 x 4.6 cm masslike area is noted. CEA 23.1, CA19-9 228.3, AFP 3.6. Oncology following. Recommends EUS with FNA. Spoke with Dr. Venegas in invasive radiology, no clear window, would have to go through small bowel for FNA, recommend EUS. Per Dr. Jean Flower, the mass seems to more cystic and may be high risk for cutaneous fistula. Pt was accepted at [facility], Dr Bee as same day case for EUS with biopsy and will send patient back afterwards. However, this was not approved by the hospital here and his appointment was cancelled. We recommend EUS with FNA, possible cyst gastrostomy tube if needed, but Dr. Lara is not available until 01/19. From a GI standpoint, pt is stable and could be discharged and return to the hospital on Thursday for procedure. However, patient does not want to be discharged prior to having this done and states that he will not be able to follow up or come back to the hospital if he is discharged before then. Will get GS evaluation, but likely pt will need to have EUS with bx and cyst gastrostomy tube on Thursday. Weight loss 50 Pounds in the past 4 months. 01/14: Seen in his bedroom stable, no nausea, vomit or diarrhea. 01/15: Followed by GI specialist and recommended EUS with FNA possible cyst gastrotomy tube if needed, doctor Lara is available on January 19, from GI specialist the patient may be discharged and come back next Thursday for procedure, but the patient does not want to be discharged he states he wont be able to follow up or come back to the hospital if discharged, Biopsy and Gastrostomy tube next Thursday, Odynophagia resolved, Leukocytosis improved on Cipro, Urinary retention stricture, status post cystoscopy and direct visual internal Urethrotomy 2 bulbar urethral strictures 01/09/17 per , to continue PPI , Supportive care. Seen in his bedroom and discussed with salon manager Miss Vernon the patient will be [facility] to [facility] on Home health care for Physical therapy and skilled nurse to continue his Cortes Catheter management and will come back to this facility on Thursday to continue his care. as recommended by GI specialist. 01/16: Stable in his bedroom was discussed with nurse and with salon manager not able to discharge this patient yesterday due to that will be an Unsafe Discharge, no nausea, vomit or diarrhea. discussed yesterday with GI QUALITY ASSURANCE ASSISTANT plan is waiting for Doctor Marco. Objective Vital Signs Date Time Temp Pulse Resp B/P Pulse Ox O2 Delivery O2 Flow Rate FiO2 01/16/17 08:00 98.8 63 20 116/63 96 01/16/17 04:00 97.2 60 18 95/62 95 01/16/17 00:00 97.6 72 17 98/64 97 01/15/17 22:00 69 01/15/17 20:00 98.1 73 17 92/68 97 01/15/17 16:00 98.4 57 18 116/65 95 01/15/17 12:00 97.5 59 20 96/62 96 I/O 01/15/17 01/15/17 01/15/17 01/16/17 01/16/17 01/16/17 07:00 15:00 23:00 07:00 15:00 23:00 Intake Total 240 ml 1080 ml 240 ml 240 ml 240 ml Output Total 600 ml 1700 ml 1000 ml 1000 ml Balance -360 ml -620 ml -760 ml -760 ml 240 ml Intake Oral 240 ml 1080 ml 240 ml 240 ml IV Total 0 ml TPN/PPN 240 ml Output Urine Total 600 ml 1700 ml 1000 ml 1000 ml # Bowel Movements 0 Result Diagram: 01/12/17 0516 01/12/17 0516 Imaging Last Impressions Abdomen MRI 01/11/17 0000 Signed Impressions: Service Date/Time: Wednesday, January 11, 2017 18:39 - CONCLUSION: 1. Significant hydronephrosis bilaterally. 2. Cystic mass in the lesser sac does not demonstrate any abnormal enhancement and differential considerations includes benign cystic lesions in addition to cystic neoplasm such as a cystadenoma/cystadenocarcinoma or even IPMN. K. Moses Hernandez MD Chest X-Ray 01/09/17 0000 Signed Impressions: Service Date/Time: Monday, January 09, 2017 05:30 - CONCLUSION: No acute disease. Bienvenido Shaikh MD Abdomen/Pelvis CT 01/09/17 0000 Signed Impressions: Service Date/Time: Monday, January 09, 2017 03:38 - CONCLUSION: 1. Severe hydronephrosis and hydroureter with a markedly abnormal heterogeneous thick walled trabeculated urinary bladder. It is difficult to exclude a bladder malignancy given the markedly heterogeneous appearance. For example a prominent area of thick trabeculated bladder wall is noted superiorly seen best on axial image 52 where a 5.3 x 4.6 cm masslike area is noted. 2. Extensive atherosclerotic disease. 3. Prominent heterogeneous prostate. 4. 5. Indeterminate cystic-appearing mass of the upper abdomen appears to arise from the pancreas with extrapancreatic component suggesting a large mildly complex cyst. There is some peripheral punctate calcification. Surgery should be considered for asymptomatic pancreatic cysts >3 cm, generally subsequent to aspiration. If the lesion is a cystadenoma, surgery is deferred until the cyst is > 4 cm. Solid pseudopapillary epithelial neoplasm tumors should be resected. Patient factors ultimately determine the appropriateness of surgical treatment. Reference: 6. Berland LL, Jolanta SG, Belcourt RM et al; Managing Incidental Findings on Abdominal CT: White Paper of the ACR Incidental Findings Committee. J Am Min Radiol 2010;7:754-773. Bienvenido Shaikh MD Procedures cystoscopy and direct visual internal urethrotomy of 2 bulbar urethral strictures Other Results Laboratory Tests Test 01/12/17 01/13/17 05:16 22:39 White Blood Count 11.0 TH/MM3 Red Blood Count 3.02 MIL/MM3 Hemoglobin 9.6 GM/DL Hematocrit 29.0 % Mean Corpuscular Volume 95.9 FL Mean Corpuscular Hemoglobin 31.8 PG Mean Corpuscular Hemoglobin 33.2 % Concent Red Cell Distribution Width 13.2 % Platelet Count 474 TH/MM3 Mean Platelet Volume 8.4 FL Sodium Level 137 MEQ/L Potassium Level 3.8 MEQ/L Chloride Level 102 MEQ/L Carbon Dioxide Level 28.6 MEQ/L Anion Gap 6 MEQ/L Blood Urea Nitrogen 11 MG/DL Creatinine 1.06 MG/DL Estimat Glomerular Filtration 86 ML/MIN Rate Random Glucose 105 MG/DL Calcium Level 8.8 MG/DL Magnesium Level 1.7 MG/DL Reticulocyte Count 1.9 % Absolute Reticulocyte Count 59.5 MIL/L Haptoglobin 262 MG/DL Iron Level 56 MCG/DL Total Iron Binding Capacity 179 MCG/DL Percent Iron Saturation 31.3 % Ferritin 706 NG/ML Lactate Dehydrogenase 131 U/L C-Reactive Protein 2.00 MG/DL Vitamin B12 Level 542 PG/ML Objective Remarks GENERAL: No apparent Distress, denotes chronic illness. SKIN: No rashes, ecchymoses or lesions. Cool and dry. HEAD: Atraumatic. Normocephalic. EYES: No scleral icterus. No injection or drainage. ENT: Nose without bleeding, purulent drainage. NECK: Trachea midline. No JVD or lymphadenopathy. CARDIOVASCULAR: Regular rate and rhythm without murmurs, gallops, or rubs. RESPIRATORY: Clear to auscultation. Breath sounds equal bilaterally. No wheezes , rales, or rhonchi. GASTROINTESTINAL: Abdomen soft, non tender positive bowel sounds. GENITOURINARY: Cortes with yellow urine. MUSCULOSKELETAL: Extremities without cyanosis, or edema. Extensive clubbing noted. NEUROLOGICAL: Awake and alert. Motor and sensory grossly within normal limits. Normal speech. PSYCH: Mood and affect appropriate. Medications and IVs Current Medications Medications (Trade) Dose Ordered Sig/David Route Start Time Stop Time Status Last Admin (NS Flush) 2 ml UNSCH PRN IV FLUSH 01/09/17 05:00 (NS Flush) 2 ml BID IV FLUSH 01/09/17 09:00 01/16/17 08:50 (Narcan Inj) 0.4 mg UNSCH PRN IV 01/09/17 05:00 (Colace) 100 mg BID PO 01/10/17 13:30 01/16/17 08:50 (Senokot) 17.2 mg DAILY PO 01/10/17 13:30 01/16/17 08:50 (Milk Of Magnesia Liq) 30 ml DAILY PO 01/10/17 13:30 01/16/17 08:50 (Protonix) 20 mg DAILY PO 01/13/17 09:00 01/16/17 08:49 (Roxicodone) 5 mg Q4H PRN PO 01/13/17 12:15 01/16/17 08:50 (Miralax) 17 gm DAILY PO 01/13/17 12:15 01/16/17 08:50 (Ambien) 5 mg HS PRN PO 01/13/17 12:15 (Heparin Inj) 5,000 units Q8HR SQ 01/13/17 14:00 01/16/17 05:10 (Cipro) 500 mg Q12HR PO 01/15/17 09:00 01/16/17 08:50 A/P Assessment and Plan This is a pleasant 61 y/o Male with Pancreatic cystic Mass, Abdomen/Pelvis CT ()----> 1. Severe hydronephrosis and hydroureter with a markedly abnormal heterogeneous thick walled trabeculated urinary bladder. It is difficult to exclude a bladder malignancy given the markedly heterogeneous appearance. For example a prominent area of thick trabeculated bladder wall is noted superiorly seen best on axial image 52 where a 5.3 x 4.6 cm masslike area is noted. CEA 23.1, CA19-9 228.3, AFP 3.6. Oncology following. Recommends EUS with FNA. Spoke with Dr. Venegas in invasive radiology, no clear window, would have to go through small bowel for FNA, recommend EUS. Per Dr. Jean Flower, the mass seems to more cystic and may be high risk for cutaneous fistula. Pt was accepted at [facility], Dr Bee as same day case for EUS with biopsy and will send patient back afterwards. However, this was not approved by the hospital here and his appointment was cancelled. We recommend EUS with FNA, possible cyst gastrostomy tube if needed, but Dr. Lara is not available until 01/19. From a GI standpoint, pt is stable and could be discharged and return to the hospital on Thursday for procedure. However, patient does not want to be discharged prior to having this done and states that he will not be able to follow up or come back to the hospital if he is discharged before then. Will get GS evaluation, but likely pt will need to have EUS with bx and cyst gastrostomy tube on Thursday. Weight loss 50 Pounds in the past 4 months. Urinary Retention/ Bladder Mass/ Leukocytosis/Urinary Tract Infection. Presented to the ED for suprapubic pain, hematuria, and penile discharge with bladder mass found on abdominal/pelvis CT with IV contrast. Urology consult appreciated. The pt is s/p cystoscopy and direct visual internal urethrotomy of 2 bulbar urethral strictures. Culture growing E coli. - follow up with urology. Continue Cortes. - will return to by mouth Ciprofloxacin he will continue for five days more. Odynophagia with weight loss/ Pancreatic mass Suspect possible GI malignancy. Gastroenterology consult appreciated. - Protonix daily. - EUS per GI when able to schedule. - oncology consult appreciated. GI specialist Notes: 01/15: Followed by GI specialist and recommended EUS with FNA possible cyst gastrotomy tube if needed, doctor Lara is available on January 19, from GI specialist the patient may be discharged and come back next Thursday for procedure, but the patient does not want to be discharged he states he wont be able to follow up or come back to the hospital if discharged, Biopsy and Gastrostomy tube next Thursday, Odynophagia resolved, Leukocytosis improved on Cipro, Urinary retention stricture, status post cystoscopy and direct visual internal Urethrotomy 2 bulbar urethral strictures 01/09/17 per , to continue PPI , Supportive care. Seen in his bedroom and discussed with salon manager Miss Vernon the patient will be transferred to a [facility] paid by [facility] on Home health care for Physical therapy and skilled nurse to continue his Cortes Catheter management and will come back to this facility on Thursday to continue his care. not able to discharge due to unsafe discharge yesterday awaiting fo Doctor Lara Constipation Improved. Acute respiratory insufficiency Improved, continue Bronchodilator, Mucolytic and incentive spirometry. Anemia stable DVT prophylaxis: Heparin Discussed with Patient in the room and Customer Strategy Manager Miss Vernon, all questions answered to the best of my abilities. Discharge Planning Once cleared by specialists. Uvaldo Louise MD Jan 16, 2017 10:22 Uvaldo Louise MD Jan 16, 2017 10:22
[2017-01-16 12:00] VITALS: BP 95/60; PULSE 57; RESP 20; TEMP 97.6; O2SAT 96
[2017-01-16 16:00] VITALS: BP 90/54; PULSE 65; RESP 17; TEMP 97.8; O2SAT 95
[2017-01-16 20:00] VITALS: BP 106/66; PULSE 78; RESP 19; TEMP 97; O2SAT 93
[2017-01-17] VITALS (8 sets, daily range): BP systolic 95–103; BP diastolic 60–68; PULSE 53–93; RESP 17–19; TEMP 96.5–98.7; O2SAT 93–97
[2017-01-17] MEDS: HEPARIN SODIUM - SQ 10,000 UNITS/ML VIAL SQ SCH ×3 (06:13→21:30)
[2017-01-17] MEDS: SODIUM CHLORIDE 0.9% FLUSH 10 ML FLUSH IV FLUSH SCH ×2 (09:00→19:36)
[2017-01-17] MEDS: POLYETHYLENE GLYCOL 17 GM PKG PO SCH (09:00)
[2017-01-17] MEDS: MAGNESIUM HYDROXIDE SUSP 30 ML CUP PO SCH (09:00)
--- NOTE | 2017-01-17 09:59 | HHI.PR ---
Subjective Remarks This is a pleasant 61 y/o Male with Pancreatic cystic Mass, Abdomen/Pelvis CT ()----> 1. Severe hydronephrosis and hydroureter with a markedly abnormal heterogeneous thick walled trabeculated urinary bladder. It is difficult to exclude a bladder malignancy given the markedly heterogeneous appearance. For example a prominent area of thick trabeculated bladder wall is noted superiorly seen best on axial image 52 where a 5.3 x 4.6 cm masslike area is noted. CEA 23.1, CA19-9 228.3, AFP 3.6. Oncology following. Recommends EUS with FNA. Spoke with Dr. Venegas in invasive radiology, no clear window, would have to go through small bowel for FNA, recommend EUS. Per Dr. Jean Flower, the mass seems to more cystic and may be high risk for cutaneous fistula. Pt was accepted at [facility], Dr Bee as same day case for EUS with biopsy and will send patient back afterwards. However, this was not approved by the hospital here and his appointment was cancelled. We recommend EUS with FNA, possible cyst gastrostomy tube if needed, but Dr. Lara is not available until 01/19. From a GI standpoint, pt is stable and could be discharged and return to the hospital on Thursday for procedure. However, patient does not want to be discharged prior to having this done and states that he will not be able to follow up or come back to the hospital if he is discharged before then. Will get GS evaluation, but likely pt will need to have EUS with bx and cyst gastrostomy tube on Thursday. Weight loss 50 Pounds in the past 4 months. 01/14: Seen in his bedroom stable, no nausea, vomit or diarrhea. 01/15: Followed by GI specialist and recommended EUS with FNA possible cyst gastrotomy tube if needed, doctor Lara is available on January 19, from GI specialist the patient may be discharged and come back next Thursday for procedure, but the patient does not want to be discharged he states he wont be able to follow up or come back to the hospital if discharged, Biopsy and Gastrostomy tube next Thursday, Odynophagia resolved, Leukocytosis improved on Cipro, Urinary retention stricture, status post cystoscopy and direct visual internal Urethrotomy 2 bulbar urethral strictures 01/09/17 per , to continue PPI , Supportive care. Seen in his bedroom and discussed with manager technical training Miss Vernon the patient will be transferred to a [facility] paid by [facility] on Home health care for Physical therapy and skilled nurse to continue his Cortes Catheter management and will come back to this facility on Thursday to continue his care. as recommended by GI specialist. 01/16: Stable in his bedroom was discussed with nurse and with manager technical training not able to discharge this patient yesterday due to that will be an Unsafe Discharge, no nausea, vomit or diarrhea. discussed yesterday with GI FIELD SUPPORT TECHNICIAN plan is waiting for Doctor Marco. 01/17: Stable no nausea, vomit or diarrhea . discussed with nurse miss PuriHeather. Objective Vital Signs Date Time Temp Pulse Resp B/P Pulse Ox O2 Delivery O2 Flow Rate FiO2 01/17/17 08:00 98.1 58 17 97/61 96 01/17/17 04:00 97.9 60 19 95/61 96 01/17/17 02:28 84 01/17/17 00:00 97.6 68 19 95/67 93 01/16/17 20:00 97.0 78 19 106/66 93 01/16/17 16:00 97.8 65 17 90/54 95 01/16/17 12:00 97.6 57 20 95/60 96 I/O 01/16/17 01/16/17 01/16/17 01/17/17 01/17/17 01/17/17 07:00 15:00 23:00 07:00 15:00 23:00 Intake Total 240 ml 1200 ml 480 ml Output Total 1000 ml 1000 ml 900 ml Balance -760 ml 200 ml -420 ml Intake Oral 240 ml 960 ml 480 ml IV Total 0 ml TPN/PPN 240 ml Output Urine Total 1000 ml 1000 ml 900 ml # Bowel Movements 0 0 Imaging Last Impressions Abdomen MRI 01/11/17 0000 Signed Impressions: Service Date/Time: Wednesday, January 11, 2017 18:39 - CONCLUSION: 1. Significant hydronephrosis bilaterally. 2. Cystic mass in the lesser sac does not demonstrate any abnormal enhancement and differential considerations includes benign cystic lesions in addition to cystic neoplasm such as a cystadenoma/cystadenocarcinoma or even IPMN. Love Hernandez MD Chest X-Ray 01/09/17 0000 Signed Impressions: Service Date/Time: Monday, January 09, 2017 05:30 - CONCLUSION: No acute disease. Bienvenido Shaikh MD Abdomen/Pelvis CT 01/09/17 0000 Signed Impressions: Service Date/Time: Monday, January 09, 2017 03:38 - CONCLUSION: 1. Severe hydronephrosis and hydroureter with a markedly abnormal heterogeneous thick walled trabeculated urinary bladder. It is difficult to exclude a bladder malignancy given the markedly heterogeneous appearance. For example a prominent area of thick trabeculated bladder wall is noted superiorly seen best on axial image 52 where a 5.3 x 4.6 cm masslike area is noted. 2. Extensive atherosclerotic disease. 3. Prominent heterogeneous prostate. 4. 5. Indeterminate cystic-appearing mass of the upper abdomen appears to arise from the pancreas with extrapancreatic component suggesting a large mildly complex cyst. There is some peripheral punctate calcification. Surgery should be considered for asymptomatic pancreatic cysts >3 cm, generally subsequent to aspiration. If the lesion is a cystadenoma, surgery is deferred until the cyst is > 4 cm. Solid pseudopapillary epithelial neoplasm tumors should be resected. Patient factors ultimately determine the appropriateness of surgical treatment. Reference: 6. Berland LL, Jolanta SG, Gheens RM et al; Managing Incidental Findings on Abdominal CT: White Paper of the ACR Incidental Findings Committee. J Am Min Radiol 2010;7:754-773. Bienvenido Shaikh MD Procedures cystoscopy and direct visual internal urethrotomy of 2 bulbar urethral strictures Other Results Laboratory Tests Test 01/13/17 22:39 Reticulocyte Count 1.9 % Absolute Reticulocyte Count 59.5 MIL/L Haptoglobin 262 MG/DL Iron Level 56 MCG/DL Total Iron Binding Capacity 179 MCG/DL Percent Iron Saturation 31.3 % Ferritin 706 NG/ML Lactate Dehydrogenase 131 U/L C-Reactive Protein 2.00 MG/DL Vitamin B12 Level 542 PG/ML Red Blood Cell Folate 337 Objective Remarks GENERAL: No apparent Distress, denotes chronic illness. SKIN: No rashes, ecchymoses or lesions. Cool and dry. HEAD: Atraumatic. Normocephalic. EYES: No scleral icterus. No injection or drainage. ENT: Nose without bleeding, purulent drainage. NECK: Trachea midline. No JVD or lymphadenopathy. CARDIOVASCULAR: Regular rate and rhythm without murmurs, gallops, or rubs. RESPIRATORY: Clear to auscultation. Breath sounds equal bilaterally. No wheezes , rales, or rhonchi. GASTROINTESTINAL: Abdomen soft, non tender positive bowel sounds. GENITOURINARY: Cortes with yellow urine. MUSCULOSKELETAL: Extremities without cyanosis, or edema. Extensive clubbing noted. NEUROLOGICAL: Awake and alert. Motor and sensory grossly within normal limits. Normal speech. PSYCH: Mood and affect appropriate. Medications and IVs Current Medications Medications (Trade) Dose Ordered Sig/David Route Start Time Stop Time Status Last Admin (NS Flush) 2 ml UNSCH PRN IV FLUSH 01/09/17 05:00 (NS Flush) 2 ml BID IV FLUSH 01/09/17 09:00 01/16/17 21:19 (Narcan Inj) 0.4 mg UNSCH PRN IV 01/09/17 05:00 (Colace) 100 mg BID PO 01/10/17 13:30 01/16/17 21:15 (Senokot) 17.2 mg DAILY PO 01/10/17 13:30 01/16/17 08:50 (Milk Of Magnesia Liq) 30 ml DAILY PO 01/10/17 13:30 01/16/17 08:50 (Protonix) 20 mg DAILY PO 01/13/17 09:00 01/16/17 08:49 (Roxicodone) 5 mg Q4H PRN PO 01/13/17 12:15 01/16/17 21:19 (Miralax) 17 gm DAILY PO 01/13/17 12:15 01/16/17 08:50 (Ambien) 5 mg HS PRN PO 01/13/17 12:15 (Heparin Inj) 5,000 units Q8HR SQ 01/13/17 14:00 01/17/17 06:13 (Cipro) 500 mg Q12HR PO 01/15/17 09:00 01/16/17 21:15 A/P Assessment and Plan This is a pleasant 61 y/o Male with Pancreatic cystic Mass, Abdomen/Pelvis CT ()----> 1. Severe hydronephrosis and hydroureter with a markedly abnormal heterogeneous thick walled trabeculated urinary bladder. It is difficult to exclude a bladder malignancy given the markedly heterogeneous appearance. For example a prominent area of thick trabeculated bladder wall is noted superiorly seen best on axial image 52 where a 5.3 x 4.6 cm masslike area is noted. CEA 23.1, CA19-9 228.3, AFP 3.6. Oncology following. Recommends EUS with FNA. Spoke with Dr. Venegas in invasive radiology, no clear window, would have to go through small bowel for FNA, recommend EUS. Per Dr. Jean Flower, the mass seems to more cystic and may be high risk for cutaneous fistula. Pt was accepted at [facility], Dr Bee as same day case for EUS with biopsy and will send patient back afterwards. However, this was not approved by the hospital here and his appointment was cancelled. We recommend EUS with FNA, possible cyst gastrostomy tube if needed, but Dr. Lara is not available until 01/19. From a GI standpoint, pt is stable and could be discharged and return to the hospital on Thursday for procedure. However, patient does not want to be discharged prior to having this done and states that he will not be able to follow up or come back to the hospital if he is discharged before then. Will get GS evaluation, but likely pt will need to have EUS with bx and cyst gastrostomy tube on Thursday. Weight loss 50 Pounds in the past 4 months. Urinary Retention/ Bladder Mass/ Leukocytosis/Urinary Tract Infection. Presented to the ED for suprapubic pain, hematuria, and penile discharge with bladder mass found on abdominal/pelvis CT with IV contrast. Urology consult appreciated. The pt is s/p cystoscopy and direct visual internal urethrotomy of 2 bulbar urethral strictures. Culture growing E coli. - follow up with urology. Continue Cortes. - will return to by mouth Ciprofloxacin he will continue for five days more. Odynophagia with weight loss/ Pancreatic mass Suspect possible GI malignancy. Gastroenterology consult appreciated. - Protonix daily. - EUS per GI when able to schedule. - oncology consult appreciated. GI specialist Notes: 01/15: Followed by GI specialist and recommended EUS with FNA possible cyst gastrotomy tube if needed, doctor Lara is available on January 19, from GI specialist the patient may be discharged and come back next Thursday for procedure, but the patient does not want to be discharged he states he wont be able to follow up or come back to the hospital if discharged, Biopsy and Gastrostomy tube next Thursday, Odynophagia resolved, Leukocytosis improved on Cipro, Urinary retention stricture, status post cystoscopy and direct visual internal Urethrotomy 2 bulbar urethral strictures 01/09/17 per , to continue PPI , Supportive care. Seen in his bedroom and discussed with manager technical training Miss Vernon the patient will be transferred to a [facility] paid by [facility] on Home health care for Physical therapy and skilled nurse to continue his Cortes Catheter management and will come back to this facility on Thursday to continue his care. not able to discharge due to unsafe discharge yesterday awaiting fo Doctor Lara Constipation Improved. Acute respiratory insufficiency Improved, continue Bronchodilator, Mucolytic and incentive spirometry. Anemia stable DVT prophylaxis: Heparin Discussed with Patient in the room, all questions answered to the best of my abilities. No changes to anterior assessment. Discharge Planning Once cleared by specialists. Uvaldo Louise MD Jan 17, 2017 09:59
[2017-01-17] MEDS: CIPROFLOXACIN 500 MG TAB PO SCH ×2 (11:06→19:36)
[2017-01-17] MEDS: PANTOPRAZOLE SOD 20 MG DELAYED RELEASE TAB PO SCH (11:06)
[2017-01-17] MEDS: DOCUSATE SODIUM 100 MG CAP PO SCH ×2 (11:06→19:36)
[2017-01-17] MEDS: SENNOSIDES 8.6 MG TAB PO SCH (11:06)
[2017-01-18] VITALS (9 sets, daily range): BP systolic 96–107; BP diastolic 59–74; PULSE 57–81; RESP 17–18; TEMP 97.2–98.5; O2SAT 95–98
[2017-01-18] MEDS: HEPARIN SODIUM - SQ 10,000 UNITS/ML VIAL SQ SCH ×2 (05:02→21:12)
[2017-01-18] MEDS: POLYETHYLENE GLYCOL 17 GM PKG PO SCH (08:17)
[2017-01-18] MEDS: MAGNESIUM HYDROXIDE SUSP 30 ML CUP PO SCH (08:17)
[2017-01-18] MEDS: PANTOPRAZOLE SOD 20 MG DELAYED RELEASE TAB PO SCH (08:18)
[2017-01-18] MEDS: DOCUSATE SODIUM 100 MG CAP PO SCH ×2 (08:18→19:59)
[2017-01-18] MEDS: CIPROFLOXACIN 500 MG TAB PO SCH ×2 (08:18→19:59)
[2017-01-18] MEDS: SENNOSIDES 8.6 MG TAB PO SCH (08:18)
[2017-01-18] MEDS: SODIUM CHLORIDE 0.9% FLUSH 10 ML FLUSH IV FLUSH SCH ×2 (08:26→19:59)
--- NOTE | 2017-01-18 09:29 | HHI.PR ---
Subjective Remarks This is a pleasant 61 y/o Male with Pancreatic cystic Mass, Abdomen/Pelvis CT ()----> 1. Severe hydronephrosis and hydroureter with a markedly abnormal heterogeneous thick walled trabeculated urinary bladder. It is difficult to exclude a bladder malignancy given the markedly heterogeneous appearance. For example a prominent area of thick trabeculated bladder wall is noted superiorly seen best on axial image 52 where a 5.3 x 4.6 cm masslike area is noted. CEA 23.1, CA19-9 228.3, AFP 3.6. Oncology following. Recommends EUS with FNA. Spoke with Dr. Venegas in invasive radiology, no clear window, would have to go through small bowel for FNA, recommend EUS. Per Dr. Jean Flower, the mass seems to more cystic and may be high risk for cutaneous fistula. Pt was accepted at [facility], Dr Bee as same day case for EUS with biopsy and will send patient back afterwards. However, this was not approved by the hospital here and his appointment was cancelled. We recommend EUS with FNA, possible cyst gastrostomy tube if needed, but Dr. Lara is not available until 01/19. From a GI standpoint, pt is stable and could be discharged and return to the hospital on Thursday for procedure. However, patient does not want to be discharged prior to having this done and states that he will not be able to follow up or come back to the hospital if he is discharged before then. Will get GS evaluation, but likely pt will need to have EUS with bx and cyst gastrostomy tube on Thursday. Weight loss 50 Pounds in the past 4 months. 01/14: Seen in his bedroom stable, no nausea, vomit or diarrhea. 01/15: Followed by GI specialist and recommended EUS with FNA possible cyst gastrotomy tube if needed, doctor Lara is available on January 19, from GI specialist the patient may be discharged and come back next Thursday for procedure, but the patient does not want to be discharged he states he wont be able to follow up or come back to the hospital if discharged, Biopsy and Gastrostomy tube next Thursday, Odynophagia resolved, Leukocytosis improved on Cipro, Urinary retention stricture, status post cystoscopy and direct visual internal Urethrotomy 2 bulbar urethral strictures 01/09/17 per , to continue PPI , Supportive care. Seen in his bedroom and discussed with title department manager Miss Vernon the patient will be transferred to [facility] on Home health care for Physical therapy and skilled nurse to continue his Cortes Catheter management and will come back to this facility on Thursday to continue his care. as recommended by GI specialist. 01/16: Stable in his bedroom was discussed with nurse and with title department manager not able to discharge this patient yesterday due to that will be an Unsafe Discharge. discussed yesterday with GI LICENSED MASSAGE PRACTITIONER plan is waiting for Doctor Marco. 01/17: Stable no new issues, discussed with nurse Miss Crooks. 01/18: Seen in his bedroom, No nausea, vomit or diarrhea, he is eating well. no abdominal pain. Objective Vital Signs Date Time Temp Pulse Resp B/P Pulse Ox O2 Delivery O2 Flow Rate FiO2 01/18/17 08:00 97.2 57 17 96/59 95 01/18/17 04:38 97.5 60 17 96/63 98 01/18/17 00:24 97.8 73 18 99/66 95 01/17/17 20:00 93 01/17/17 20:00 98.7 76 18 103/60 96 01/17/17 16:00 97.8 67 17 99/68 97 01/17/17 12:00 96.5 65 18 95/62 97 I/O 01/17/17 01/17/17 01/17/17 01/18/17 01/18/17 01/18/17 06:59 14:59 22:59 06:59 14:59 22:59 Intake Total 240 ml 380 ml 360 ml Output Total 1100 ml 1000 ml 1000 ml Balance -860 ml -620 ml -640 ml Intake Oral 240 ml 380 ml 360 ml Output Urine Total 1100 ml 1000 ml 1000 ml # Bowel Movements 0 Imaging Last Impressions Abdomen MRI 01/11/17 0000 Signed Impressions: Service Date/Time: Wednesday, January 11, 2017 18:39 - CONCLUSION: 1. Significant hydronephrosis bilaterally. 2. Cystic mass in the lesser sac does not demonstrate any abnormal enhancement and differential considerations includes benign cystic lesions in addition to cystic neoplasm such as a cystadenoma/cystadenocarcinoma or even IPMN. Love Hernandez MD Chest X-Ray 01/09/17 0000 Signed Impressions: Service Date/Time: Monday, January 09, 2017 05:30 - CONCLUSION: No acute disease. Bienvenido Shaikh MD Abdomen/Pelvis CT 01/09/17 0000 Signed Impressions: Service Date/Time: Monday, January 09, 2017 03:38 - CONCLUSION: 1. Severe hydronephrosis and hydroureter with a markedly abnormal heterogeneous thick walled trabeculated urinary bladder. It is difficult to exclude a bladder malignancy given the markedly heterogeneous appearance. For example a prominent area of thick trabeculated bladder wall is noted superiorly seen best on axial image 52 where a 5.3 x 4.6 cm masslike area is noted. 2. Extensive atherosclerotic disease. 3. Prominent heterogeneous prostate. 4. 5. Indeterminate cystic-appearing mass of the upper abdomen appears to arise from the pancreas with extrapancreatic component suggesting a large mildly complex cyst. There is some peripheral punctate calcification. Surgery should be considered for asymptomatic pancreatic cysts >3 cm, generally subsequent to aspiration. If the lesion is a cystadenoma, surgery is deferred until the cyst is > 4 cm. Solid pseudopapillary epithelial neoplasm tumors should be resected. Patient factors ultimately determine the appropriateness of surgical treatment. Reference: 6. Berland LL, Jolanta SG, Mccoll RM et al; Managing Incidental Findings on Abdominal CT: White Paper of the ACR Incidental Findings Committee. J Am Min Radiol 2010;7:754-773. Bienvenido Shaikh MD Procedures cystoscopy and direct visual internal urethrotomy of 2 bulbar urethral strictures Other Results Laboratory Tests Test 01/13/17 22:39 Red Blood Cell Folate 337 Objective Remarks GENERAL: No apparent Distress, denotes chronic illness. SKIN: No rashes, ecchymoses or lesions. Cool and dry. HEAD: Atraumatic. Normocephalic. EYES: No scleral icterus. No injection or drainage. ENT: Nose without bleeding, purulent drainage. NECK: Trachea midline. No JVD or lymphadenopathy. CARDIOVASCULAR: Regular rate and rhythm without murmurs, gallops, or rubs. RESPIRATORY: Clear to auscultation. Breath sounds equal bilaterally. No wheezes , rales, or rhonchi. GASTROINTESTINAL: Abdomen soft, non tender positive bowel sounds. GENITOURINARY: Cortes with yellow urine. MUSCULOSKELETAL: Extremities without cyanosis, or edema. Extensive clubbing noted. NEUROLOGICAL: Awake and alert. Motor and sensory grossly within normal limits. Normal speech. PSYCH: Mood and affect appropriate. Medications and IVs Current Medications Medications (Trade) Dose Ordered Sig/David Route Start Time Stop Time Status Last Admin (NS Flush) 2 ml UNSCH PRN IV FLUSH 01/09/17 05:00 (NS Flush) 2 ml BID IV FLUSH 01/09/17 09:00 01/18/17 08:26 (Narcan Inj) 0.4 mg UNSCH PRN IV 01/09/17 05:00 (Colace) 100 mg BID PO 01/10/17 13:30 01/18/17 08:18 (Senokot) 17.2 mg DAILY PO 01/10/17 13:30 01/18/17 08:18 (Milk Of Magnesia Liq) 30 ml DAILY PO 01/10/17 13:30 01/18/17 08:17 (Protonix) 20 mg DAILY PO 01/13/17 09:00 01/18/17 08:18 (Roxicodone) 5 mg Q4H PRN PO 01/13/17 12:15 01/18/17 08:20 (Miralax) 17 gm DAILY PO 01/13/17 12:15 01/18/17 08:17 (Ambien) 5 mg HS PRN PO 01/13/17 12:15 (Heparin Inj) 5,000 units Q8HR SQ 01/13/17 14:00 01/17/17 21:30 (Cipro) 500 mg Q12HR PO 01/15/17 09:00 01/18/17 08:18 A/P Assessment and Plan This is a pleasant 61 y/o Male with Pancreatic cystic Mass, Abdomen/Pelvis CT ()----> 1. Severe hydronephrosis and hydroureter with a markedly abnormal heterogeneous thick walled trabeculated urinary bladder. It is difficult to exclude a bladder malignancy given the markedly heterogeneous appearance. For example a prominent area of thick trabeculated bladder wall is noted superiorly seen best on axial image 52 where a 5.3 x 4.6 cm masslike area is noted. CEA 23.1, CA19-9 228.3, AFP 3.6. Oncology following. Recommends EUS with FNA. Spoke with Dr. Venegas in invasive radiology, no clear window, would have to go through small bowel for FNA, recommend EUS. Per Dr. Jean Flower, the mass seems to more cystic and may be high risk for cutaneous fistula. Pt was accepted at [facility], Dr Bee as same day case for EUS with biopsy and will send patient back afterwards. However, this was not approved by the hospital here and his appointment was cancelled. We recommend EUS with FNA, possible cyst gastrostomy tube if needed, but Dr. Lara is not available until 01/19. From a GI standpoint, pt is stable and could be discharged and return to the hospital on Thursday for procedure. However, patient does not want to be discharged prior to having this done and states that he will not be able to follow up or come back to the hospital if he is discharged before then. Will get GS evaluation, but likely pt will need to have EUS with bx and cyst gastrostomy tube on Thursday. Weight loss 50 Pounds in the past 4 months. Urinary Retention/ Bladder Mass/ Leukocytosis/Urinary Tract Infection. Presented to the ED for suprapubic pain, hematuria, and penile discharge with bladder mass found on abdominal/pelvis CT with IV contrast. Urology consult appreciated. The pt is s/p cystoscopy and direct visual internal urethrotomy of 2 bulbar urethral strictures. Culture growing E coli. - follow up with urology. Continue Cortes. - will return to by mouth Ciprofloxacin until 01/20/17 Odynophagia with weight loss/ Pancreatic mass Suspect possible GI malignancy. Gastroenterology consult appreciated. - Protonix daily. - EUS per GI when able to schedule. - oncology consult appreciated. GI specialist Notes: 01/15: Followed by GI specialist and recommended EUS with FNA possible cyst gastrotomy tube if needed, doctor Lara is available on January 19, from GI specialist the patient may be discharged and come back next Thursday for procedure, but the patient does not want to be discharged he states he wont be able to follow up or come back to the hospital if discharged, Biopsy and Gastrostomy tube next Thursday, Odynophagia resolved, Leukocytosis improved on Cipro, Urinary retention stricture, status post cystoscopy and direct visual internal Urethrotomy 2 bulbar urethral strictures 01/09/17 per , to continue PPI , Supportive care. Seen in his bedroom and discussed with title department manager Miss Vernon the patient will be transferred to a [facility] on Home health care for Physical therapy and skilled nurse to continue his Cortes Catheter management and will come back to this facility on Thursday to continue his care. not able to discharge due to unsafe discharge yesterday awaiting fo Doctor Marco Constipation Improved. Acute respiratory insufficiency Improved, continue Bronchodilator, Mucolytic and incentive spirometry. Anemia stable DVT prophylaxis: Heparin Discussed with Patient in the room, all questions answered to the best of my abilities. No changes to anterior assessment. Discharge Planning Once cleared by specialists. Uvaldo Louise MD Jan 18, 2017 09:29
--- NOTE | 2017-01-18 16:12 | HHI.GIFU ---
Subjective Remarks Lying in bed. Tolerating regular diet. Denies nausea, vomiting, or diarrhea. No abdominal pain. (Alee Henry) Objective Vitals I&O Vital Signs Date Time Temp Pulse Resp B/P Pulse Ox O2 Delivery O2 Flow Rate FiO2 01/18/17 12:00 98.5 81 18 107/71 96 01/18/17 08:00 97.2 57 17 96/59 95 01/18/17 04:38 97.5 60 17 96/63 98 01/18/17 00:24 97.8 73 18 99/66 95 01/17/17 20:00 93 01/17/17 20:00 98.7 76 18 103/60 96 I/O 01/17/17 01/17/17 01/17/17 01/18/17 01/18/17 01/18/17 07:00 15:00 23:00 07:00 15:00 23:00 Intake Total 240 ml 380 ml 360 ml 480 ml Output Total 1100 ml 1000 ml 1000 ml 500 ml Balance -860 ml -620 ml -640 ml -20 ml Intake Oral 240 ml 380 ml 360 ml 480 ml Output Urine Total 1100 ml 1000 ml 1000 ml 500 ml # Bowel Movements 0 0 Laboratory Laboratory Tests Test 01/13/17 22:39 Red Blood Cell Folate 337 Imaging Last Impressions Abdomen MRI 01/11/17 0000 Signed Impressions: Service Date/Time: Wednesday, January 11, 2017 18:39 - CONCLUSION: 1. Significant hydronephrosis bilaterally. 2. Cystic mass in the lesser sac does not demonstrate any abnormal enhancement and differential considerations includes benign cystic lesions in addition to cystic neoplasm such as a cystadenoma/cystadenocarcinoma or even IPMN. Love Hernandez MD Chest X-Ray 01/09/17 0000 Signed Impressions: Service Date/Time: Monday, January 09, 2017 05:30 - CONCLUSION: No acute disease. Bienvenido Shaikh MD Abdomen/Pelvis CT 01/09/17 0000 Signed Impressions: Service Date/Time: Monday, January 09, 2017 03:38 - CONCLUSION: 1. Severe hydronephrosis and hydroureter with a markedly abnormal heterogeneous thick walled trabeculated urinary bladder. It is difficult to exclude a bladder malignancy given the markedly heterogeneous appearance. For example a prominent area of thick trabeculated bladder wall is noted superiorly seen best on axial image 52 where a 5.3 x 4.6 cm masslike area is noted. 2. Extensive atherosclerotic disease. 3. Prominent heterogeneous prostate. 4. 5. Indeterminate cystic-appearing mass of the upper abdomen appears to arise from the pancreas with extrapancreatic component suggesting a large mildly complex cyst. There is some peripheral punctate calcification. Surgery should be considered for asymptomatic pancreatic cysts >3 cm, generally subsequent to aspiration. If the lesion is a cystadenoma, surgery is deferred until the cyst is > 4 cm. Solid pseudopapillary epithelial neoplasm tumors should be resected. Patient factors ultimately determine the appropriateness of surgical treatment. Reference: 6. Allenland LL, Jolanta SG, Neftali RM et al; Managing Incidental Findings on Abdominal CT: White Paper of the ACR Incidental Findings Committee. J Am Min Radiol 2010;7:754-773. Bienvenido Shaikh MD Physical Exam HEENT: PERRLA, Normocephalic; atraumatic CHEST: Resp. even/unlabored, diminished CARDIAC: RRR ABDOMEN: Soft, nondistended, nontender; no hepatosplenomegaly; bowel sounds are present in all four quadrants. EXTREMITIES: No clubbing, cyanosis, or edema. SKIN: Normal; no rash; no jaundice. CLINIC LEAD: Alert, oriented. (Alee Henry) Assessment and Plan Plan ASSESSMENT - Pancreatic cystic mass. Abdomen/Pelvis CT (01/09/17)----> 1. Severe hydronephrosis and hydroureter with a markedly abnormal heterogeneous thick walled trabeculated urinary bladder. It is difficult to exclude a bladder malignancy given the markedly heterogeneous appearance. For example a prominent area of thick trabeculated bladder wall is noted superiorly seen best on axial image 52 where a 5.3 x 4.6 cm masslike area is noted. 2. Extensive atherosclerotic disease. 3. Prominent heterogeneous prostate. 4. Indeterminate cystic-appearing mass of the upper abdomen appears to arise from the pancreas with extrapancreatic component suggesting a large mildly complex cyst. There is some peripheral punctate calcification. Surgery should be considered for asymptomatic pancreatic cysts >3 cm, generally subsequent to aspiration. If the lesion is a cystadenoma, surgery is deferred until the mop[place] sewer is > 4 cm. Solid pseudopapillary epithelial neoplasm tumors should be resected. Patient factors ultimately determine the appropriateness of surgical treatment. 5. Juanita LL, Jolanta SG, Neftali RM et al; Managing Incidental Findings on Abdominal CT: White Paper of the ACR Incidental Findings Committee. Abdomen MRI (01/11/17)-----> 1. Significant hydronephrosis bilaterally. 2. Cystic mass in the lesser sac does not demonstrate any abnormal enhancement and differential considerations includes benign cystic lesions in addition to cystic neoplasm such as a cystadenoma/cystadenocarcinoma or even IPMN. He is not aware of any history of pancreatitis, but does have extensive etoh use history. CEA 23.1, CA19-9 228.3, AFP 3.6. Oncology following. Recommends EUS with FNA. Spoke with Dr. Venegas in invasive radiology, no clear window, would have to go through small bowel for FNA, recommend EUS. Per Dr. Jean Flower, the mass seems to more cystic and may be high risk for cutaneous fistula. Pt was accepted at [facility], Dr Bee as same day case for EUS with biopsy and will send patient back afterwards. However , this was not approved by the hospital here and his appointment was cancelled. We recommend EUS with FNA, possible cyst gastrostomy tube if needed, but Dr. Lara is not available until 01/19. From a GI standpoint, pt is stable and could be discharged and return to the hospital on Thursday for procedure. However, patient does not want to be discharged prior to having this done and states that he will not be able to follow up or come back to the hospital if he is discharged before then. Will get GS evaluation, but likely pt will need to have EUS with bx and cyst gastrostomy tube on Thursday. - Weight loss. 50 lb weight loss in past 4 months. Never had egd/colonoscopy - Odynophagia, resolved. - Anemia. H/H 9.6/29.0. No acute blood loss. - Leukocytosis, improved. WBC 11.0. Urine cx with GNR. BCx pending. Cipro - Urinary retention, stricture. S/P cystoscopy and direct visual internal urethrotomy of 2 bulbar urethral strictures (01/09/17) per . PLAN - EUS with bx and cyst gastrostomy tube on Thursday. - PRIMO - PPI - Supportive care - Further recommendations to follow based on results of above Patient seen and examined by Dr. Hightower and myself and this note was written on her behalf . (Aele Henry) Physician Comments seen, examined agree with above (Didi Hightower MD) Alee Henry Jan 18, 2017 16:12 Didi Hightower MD Jan 18, 2017 16:49
[2017-01-19] MEDS ORDERED: BISACODYL 10 MG SUPP RECTAL PRN (00:30)
[2017-01-19] MEDS ORDERED: LACTATED RINGER'S 1000 ML IV PRN (02:45)
[2017-01-19] MEDS ORDERED: CHLORHEXIDINE GLUCONATE 2 % 1 PACK (2 CLOTHS) TOPICAL PRN (02:45)
[2017-01-19] MEDS: HEPARIN SODIUM - SQ 10,000 UNITS/ML VIAL SQ SCH ×3 (03:55→22:00)
[2017-01-19 04:11] VITALS: BP 111/64; PULSE 68; RESP 18; TEMP 98; O2SAT 96
[2017-01-19 08:00] VITALS: BP 103/68; PULSE 62; RESP 16; TEMP 97.4; O2SAT 95
--- NOTE | 2017-01-19 08:19 | HHI.PR ---
Subjective Remarks This is a pleasant 61 y/o Male with Pancreatic cystic Mass, Abdomen/Pelvis CT ()----> 1. Severe hydronephrosis and hydroureter with a markedly abnormal heterogeneous thick walled trabeculated urinary bladder. It is difficult to exclude a bladder malignancy given the markedly heterogeneous appearance. For example a prominent area of thick trabeculated bladder wall is noted superiorly seen best on axial image 52 where a 5.3 x 4.6 cm masslike area is noted. CEA 23.1, CA19-9 228.3, AFP 3.6. Oncology following. Recommends EUS with FNA. Spoke with Dr. Venegas in invasive radiology, no clear window, would have to go through small bowel for FNA, recommend EUS. Per Dr. Jean Flower, the mass seems to more cystic and may be high risk for cutaneous fistula. Pt was accepted at [facility], Dr Bee as same day case for EUS with biopsy and will send patient back afterwards. However, this was not approved by the hospital here and his appointment was cancelled. We recommend EUS with FNA, possible cyst gastrostomy tube if needed, but Dr. Lara is not available until 01/19. From a GI standpoint, pt is stable and could be discharged and return to the hospital on Thursday for procedure. However, patient does not want to be discharged prior to having this done and states that he will not be able to follow up or come back to the hospital if he is discharged before then. Will get GS evaluation, but likely pt will need to have EUS with bx and cyst gastrostomy tube on Thursday. Weight loss 50 Pounds in the past 4 months. 01/14: Seen in his bedroom stable, no nausea, vomit or diarrhea. 01/15: Followed by GI specialist and recommended EUS with FNA possible cyst gastrotomy tube if needed, doctor Lara is available on January 19, from GI specialist the patient may be discharged and come back next Thursday for procedure, but the patient does not want to be discharged he states he wont be able to follow up or come back to the hospital if discharged, Biopsy and Gastrostomy tube next Thursday, Odynophagia resolved, Leukocytosis improved on Cipro, Urinary retention stricture, status post cystoscopy and direct visual internal Urethrotomy 2 bulbar urethral strictures 01/09/17 per , to continue PPI , Supportive care. Seen in his bedroom and discussed with zone manager Miss Vernon the patient will be transferred to [facility] on Home health care for Physical therapy and skilled nurse to continue his Cortes Catheter management and will come back to this facility on Thursday to continue his care. as recommended by GI specialist. 01/16: Stable in his bedroom was discussed with nurse and with zone manager not able to discharge this patient yesterday due to that will be an Unsafe Discharge. discussed yesterday with GI [employer]ROLE[employer] INSPECTOR plan is waiting for Doctor Marco. 01/17: Stable no new issues, discussed with nurse Miss Crooks. 01/18: Will have follow up by GI specialist tomorrow to assess his plan of care 01/19: Seen in his bedroom , stable no nausea, vomit or diarrhea, patient was left NPO since yesterday night not eating. Objective Vital Signs Date Time Temp Pulse Resp B/P Pulse Ox O2 Delivery O2 Flow Rate FiO2 01/19/17 04:11 98.0 68 18 111/64 96 01/19/17 01:03 18 01/18/17 23:42 97.5 67 17 99/62 96 01/18/17 20:16 97.4 69 18 104/70 95 01/18/17 20:00 79 01/18/17 16:00 97.5 76 18 106/74 97 01/18/17 12:00 98.5 81 18 107/71 96 I/O 01/18/17 01/18/17 01/18/17 01/19/17 01/19/17 01/19/17 07:00 15:00 23:00 07:00 15:00 23:00 Intake Total 360 ml 480 ml 480 ml Output Total 1000 ml 500 ml 1200 ml 1500 ml Balance -640 ml -20 ml -720 ml -1500 ml Intake Oral 360 ml 480 ml 480 ml Output Urine Total 1000 ml 500 ml 1200 ml 1500 ml # Bowel Movements 0 Imaging Last Impressions Abdomen MRI 01/11/17 0000 Signed Impressions: Service Date/Time: Wednesday, January 11, 2017 18:39 - CONCLUSION: 1. Significant hydronephrosis bilaterally. 2. Cystic mass in the lesser sac does not demonstrate any abnormal enhancement and differential considerations includes benign cystic lesions in addition to cystic neoplasm such as a cystadenoma/cystadenocarcinoma or even IPMN. Love Hernandez MD Chest X-Ray 01/09/17 0000 Signed Impressions: Service Date/Time: Monday, January 09, 2017 05:30 - CONCLUSION: No acute disease. Bienvenido Shaikh MD Abdomen/Pelvis CT 01/09/17 0000 Signed Impressions: Service Date/Time: Monday, January 09, 2017 03:38 - CONCLUSION: 1. Severe hydronephrosis and hydroureter with a markedly abnormal heterogeneous thick walled trabeculated urinary bladder. It is difficult to exclude a bladder malignancy given the markedly heterogeneous appearance. For example a prominent area of thick trabeculated bladder wall is noted superiorly seen best on axial image 52 where a 5.3 x 4.6 cm masslike area is noted. 2. Extensive atherosclerotic disease. 3. Prominent heterogeneous prostate. 4. 5. Indeterminate cystic-appearing mass of the upper abdomen appears to arise from the pancreas with extrapancreatic component suggesting a large mildly complex cyst. There is some peripheral punctate calcification. Surgery should be considered for asymptomatic pancreatic cysts >3 cm, generally subsequent to aspiration. If the lesion is a cystadenoma, surgery is deferred until the cyst is > 4 cm. Solid pseudopapillary epithelial neoplasm tumors should be resected. Patient factors ultimately determine the appropriateness of surgical treatment. Reference: 6. [place] LL, Jolanta SG, [place] RM et al; Managing Incidental Findings on Abdominal CT: White Paper of the ACR Incidental Findings Committee. J Am Min Radiol 2010;7:754-773. Bienvenido Shaikh MD Procedures cystoscopy and direct visual internal urethrotomy of 2 bulbar urethral strictures Other Results Laboratory Tests Test 01/13/17 22:39 Red Blood Cell Folate 337 Objective Remarks GENERAL: No apparent Distress, denotes chronic illness. SKIN: No rashes, ecchymoses or lesions. Cool and dry. HEAD: Atraumatic. Normocephalic. EYES: No scleral icterus. No injection or drainage. ENT: Nose without bleeding, purulent drainage. NECK: Trachea midline. No JVD or lymphadenopathy. CARDIOVASCULAR: Regular rate and rhythm without murmurs, gallops, or rubs. RESPIRATORY: Clear to auscultation. Breath sounds equal bilaterally. No wheezes , rales, or rhonchi. GASTROINTESTINAL: Abdomen soft, non tender positive bowel sounds. GENITOURINARY: Cortes with yellow urine. MUSCULOSKELETAL: Extremities without cyanosis, or edema. Extensive clubbing noted. NEUROLOGICAL: Awake and alert. Motor and sensory grossly within normal limits. Normal speech. PSYCH: Mood and affect appropriate. Medications and IVs Current Medications Medications (Trade) Dose Ordered Sig/David Route Start Time Stop Time Status Last Admin (NS Flush) 2 ml UNSCH PRN IV FLUSH 01/09/17 05:00 (NS Flush) 2 ml BID IV FLUSH 01/09/17 09:00 01/18/17 19:59 (Narcan Inj) 0.4 mg UNSCH PRN IV 01/09/17 05:00 (Colace) 100 mg BID PO 01/10/17 13:30 01/18/17 19:59 (Senokot) 17.2 mg DAILY PO 01/10/17 13:30 01/18/17 08:18 (Milk Of Magnesia Liq) 30 ml DAILY PO 01/10/17 13:30 01/18/17 08:17 (Protonix) 20 mg DAILY PO 01/13/17 09:00 01/18/17 08:18 (Roxicodone) 5 mg Q4H PRN PO 01/13/17 12:15 01/19/17 00:03 (Miralax) 17 gm DAILY PO 01/13/17 12:15 01/18/17 08:17 (Ambien) 5 mg HS PRN PO 01/13/17 12:15 (Heparin Inj) 5,000 units Q8HR SQ 01/13/17 14:00 01/17/17 21:30 Ciprofloxacin 500 mg 500 mg Q12HR PO 01/15/17 09:00 01/20/17 10:00 01/18/17 19:59 (Lr 1000 ml Inj) 1,000 ml @ 30 mls/hr Q24H PRN IV 01/19/17 02:45 01/22/17 02:44 A/P Assessment and Plan This is a pleasant 61 y/o Male with Pancreatic cystic Mass, Abdomen/Pelvis CT ()----> 1. Severe hydronephrosis and hydroureter with a markedly abnormal heterogeneous thick walled trabeculated urinary bladder. It is difficult to exclude a bladder malignancy given the markedly heterogeneous appearance. For example a prominent area of thick trabeculated bladder wall is noted superiorly seen best on axial image 52 where a 5.3 x 4.6 cm masslike area is noted. CEA 23.1, CA19-9 228.3, AFP 3.6. Oncology following. Recommends EUS with FNA. Spoke with Dr. Venegas in invasive radiology, no clear window, would have to go through small bowel for FNA, recommend EUS. Per Dr. Jean Flower, the mass seems to more cystic and may be high risk for cutaneous fistula. Pt was accepted at [facility], Dr Bee as same day case for EUS with biopsy and will send patient back afterwards. However, this was not approved by the hospital here and his appointment was cancelled. We recommend EUS with FNA, possible cyst gastrostomy tube if needed, but Dr. Lara is not available until 01/19. From a GI standpoint, pt is stable and could be discharged and return to the hospital on Thursday for procedure. However, patient does not want to be discharged prior to having this done and states that he will not be able to follow up or come back to the hospital if he is discharged before then. Will get GS evaluation, but likely pt will need to have EUS with for today Weight loss 50 Pounds in the past 4 months. Urinary Retention/ Bladder Mass/ Leukocytosis/Urinary Tract Infection. Presented to the ED for suprapubic pain, hematuria, and penile discharge with bladder mass found on abdominal/pelvis CT with IV contrast. Urology consult appreciated. The pt is s/p cystoscopy and direct visual internal urethrotomy of 2 bulbar urethral strictures. Culture growing E coli. - follow up with urology. Continue Cortes. - will return to by mouth Ciprofloxacin until 01/20/17 Odynophagia with weight loss/ Pancreatic mass Suspect possible GI malignancy. Gastroenterology consult appreciated. - Protonix daily. - EUS per GI when able to schedule. - oncology consult appreciated. GI specialist Notes: 01/15: Followed by GI specialist and recommended EUS with FNA possible cyst gastrotomy tube if needed, doctor Lara is available on January 19, from GI specialist the patient may be discharged and come back next Thursday for procedure, but the patient does not want to be discharged he states he wont be able to follow up or come back to the hospital if discharged, Biopsy and Gastrostomy tube next Thursday, Odynophagia resolved, Leukocytosis improved on Cipro, Urinary retention stricture, status post cystoscopy and direct visual internal Urethrotomy 2 bulbar urethral strictures 01/09/17 per , to continue PPI , Supportive care. Seen in his bedroom and discussed with zone manager Miss Vernon the patient will be transferred to a [facility] on Home health care for Physical therapy and skilled nurse to continue his Cortes Catheter management and will come back to this facility on Thursday to continue his care. not able to discharge due to unsafe discharge awaiting fo Doctor Marco Constipation Improved. Acute respiratory insufficiency Improved, continue Bronchodilator, Mucolytic and incentive spirometry. Anemia stable DVT prophylaxis: Heparin Discussed with Patient in the room, all questions answered to the best of my abilities. No changes to anterior assessment. Discharge Planning Once cleared by specialists. Uvaldo Louise MD Jan 19, 2017 08:19
[2017-01-19] MEDS: POLYETHYLENE GLYCOL 17 GM PKG PO SCH (09:00)
[2017-01-19] MEDS: MAGNESIUM HYDROXIDE SUSP 30 ML CUP PO SCH (09:00)
[2017-01-19] MEDS: DOCUSATE SODIUM 100 MG CAP PO SCH ×2 (09:22→21:00)
[2017-01-19] MEDS: PANTOPRAZOLE SOD 20 MG DELAYED RELEASE TAB PO SCH (09:22)
[2017-01-19] MEDS: SENNOSIDES 8.6 MG TAB PO SCH (09:22)
[2017-01-19] MEDS: CIPROFLOXACIN 500 MG TAB PO SCH ×2 (09:22→21:00)
[2017-01-19 09:26] VITALS: PULSE 86
[2017-01-19] MEDS: SODIUM CHLORIDE 0.9% FLUSH 10 ML FLUSH IV FLUSH SCH ×2 (09:26→21:00)
[2017-01-19 12:00] VITALS: BP 108/60; PULSE 58; RESP 16; TEMP 97.5; O2SAT 96
[2017-01-19] MEDS ORDERED: PROPOFOL 200 MG/20 ML AMP IV ONE ×2 (12:00→17:03)
[2017-01-19] MEDS ORDERED: NEOSTIGMINE METHYLSULFATE 10 MG/10 ML VIAL IV PUSH ONE (12:00)
[2017-01-19] MEDS ORDERED: LACTATED RINGER'S 1000 ML INJ 1,000 ML IV ONE (12:00)
[2017-01-19] MEDS ORDERED: SODIUM CHLOR 0.9% 1000 ML INJ 1,000 ML IV ONE (12:00)
[2017-01-19] MEDS ORDERED: DO NOT ADM ANY ANTICOAGULANT DRUGS PRN ×2 (17:23→20:45)
--- NOTE | 2017-01-19 17:55 | PD.PROCEDR ---
GI Procedure REFERRING PHYSICIAN Mario Alberto PROCEDURE PERFORMED EUS with cyst gastrostomy INDICATION FOR PROCEDURE Large pancreatic cyst PROCEDURE: The procedure, risks and benefits were discussed with Mr. Purvis and informed consent was obtained. Anesthesia sedated him with Diprivan. He was placed in the left lateral decubitus position. EUS: The Pentax videoscope was introduced through the oropharynx and advanced to the stomach. FINDINGS: A large hypoechoic cyst appears to be homogeneous a 19-gauge EUS needle was advanced into the cyst a very small amount of very thick and murky yellowish mucus was obtained this was sent for analysis then an incision was made using the zimon needle knife the tract was dilated over a guidewire that was placed into the cyst and then a 7 Uzbek 17 mm double pigtail stent was placed not much drainage was seen due to the fact that the contents of the cyst were very thick mucus and the procedure was terminated this point It was noted postprocedure that the patient had a very distended and tympanic abdomen ESTIMATED BLOOD LOSS: None SPECIMENS REMOVED: Pancreatic cyst aspiration COMPLICATIONS: Possible pneumoperitoneum IMPRESSION: 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
--- NOTE | 2017-01-19 18:00 | RADRPT ---
EXAM DATE/TIME: 01/19/2017 16:40 [facility] COMPARISON: No previous studies available for comparison. INDICATIONS : EUS with pancreatic stent placement. MEDICAL HISTORY : None. SURGICAL HISTORY : None. ENCOUNTER: Initial ACUITY: 1 day PAIN SCORE: Non-responsive. LOCATION: Bilateral abdomen. FINDINGS: A stent is identified within the left upper quadrant. CT of the abdomen would be more sensitive to d etermine the exact position of the stent and is recommended. CONCLUSION: Stent identified within the left upper quadrant. CT of the abdomen would be more sens itive to determine the exact position of this stent. Tyrone Pinon MD on January 19, 2017 at 17:51 Board Certified Radiologist. This report was verified electronically.
[2017-01-19] MEDS ORDERED: KETOROLAC TROMETHAMINE 30 MG/ML (IVP) VIAL ONE (18:28)
--- NOTE | 2017-01-19 18:29 | RADRPT ---
EXAM DATE/TIME: 01/19/2017 18:07 [facility] COMPARISON: CT ABDOMEN & PELVIS W CONTRAST, January 09, 2017, 3:38. INDICATIONS : Post EGD, evaluate for distention. ORAL CONTRAST: No oral contrast ingested. RADIATION DOSE: 10.08 CTDIvol (mGy) MEDICAL HISTORY : pancreatic cyst SURGICAL HISTORY : EGD ENCOUNTER: Initial ACUITY: 1 day PAIN SCALE: 10/10 LOCATION: ABDOMEN TECHNIQUE: Volumetric scanning of the abdomen and pelvis was performed. Using automated exposure control and ad justment of the mA and/or kV according to patient size, radiation dose was kept as low as reasonably achievable to obtain optimal diagnostic quality images. DICOM format image data is available electro nically for review and comparison. FINDINGS: LOWER LUNGS: The visualized lower lungs are clear. LIVER: Homogeneous density without lesion. There is no dilation of the biliary tree. No calcified gallston es. SPLEEN: Normal size without lesion. PANCREAS: Within normal limits. KIDNEYS: Normal in size and shape. There is no mass, stone, or hydronephrosis. ADRENAL GLANDS: Within normal limits. VASCULAR: There is no aortic aneurysm. BOWEL/MESENTERY: There is massive pneumoperitoneum. Unsure etiology. There is a stent/catheter in the region of the pa ncreatic tail and left upper quadrant. The stomach, small bowel, and colon demonstrate no acute abnor mality. There is no free intraperitoneal air or fluid. ABDOMINAL WALL: Within normal limits. RETROPERITONEUM: There is no lymphadenopathy. BLADDER: No wall thickening or mass. Cortes catheter. There is prominent soft tissue thickening in the pelvis a nterior to the bladder may be related to postsurgical changes as the previous identified masses appea r to have been surgically removed. REPRODUCTIVE: Within normal limits. INGUINAL: There is no lymphadenopathy or hernia. MUSCULOSKELETAL: Within normal limits for patient age. CONCLUSION: 1. Massive pneumoperitoneum. 2. Stent/catheter noted within the left upper quadrant. 3. Soft tissue thickening in the pelvis with removal of previous identified masses. DR Lara notified. Viktor Locke MD on January 19, 2017 at 18:21 Board Certified Radiologist. This report was verified electronically.
[2017-01-19] MEDS ORDERED: KETOROLAC TROMETHAMINE 30 MG/ML (IVP) VIAL IV PUSH ONE (19:15)
[2017-01-19 19:40] LABS: AUTOMATED NEUTROPHIL # 17.8 TH/MM3 (1.8-7.7); BASOPHIL # 0.1 TH/MM3 (0-0.2); BASOPHIL % 0.5 % (0.0-2.0); EOSINOPHIL # 0.2 TH/MM3 (0-0.4); EOSINOPHIL % 0.9 % (0.0-4.0); HEMATOCRIT 36.9 % (39.0-51.0); HEMO FLAGS DIFF FINAL; LYMPH % 19.2 % (9.0-44.0); LYMPHOCYTE # 4.5 TH/MM3 (1.0-4.8); MEAN CELL VOLUME 99.3 FL (80.0-100.0); MEAN CORPUSCULAR HEMOGLOBIN 32.8 PG (27.0-34.0); MONO % 3.4 % (0.0-8.0); PLATELET COUNT 634 TH/MM3 (150-450); RED BLOOD COUNT 3.72 MIL/MM3 (4.50-5.90); RED CELL DISTRIBUTION WIDTH 14.5 % (11.6-17.2); WHITE BLOOD COUNT 23.4 TH/MM3 (4.0-11.0)
[2017-01-19 19:51] LABS: APTT (PATIENT) 26.9 SEC (24.3-30.1); INTERNATIONAL NORMALIZED RATIO 1.4 RATIO; PROTHROMBIN TIME - PATIENT 16.2 SEC (9.8-11.6)
[2017-01-19 20:00] LABS: ANION GAP 7 MEQ/L (5-15); AST (GOT) 25 U/L (15-37); BLOOD UREA NITROGEN 20 MG/DL (7-18); CHLORIDE 97 MEQ/L (98-107); GLOMERULAR FILTRATION RATE 57 ML/MIN (>89); POTASSIUM 4.1 MEQ/L (3.5-5.1); SODIUM (NA) 130 MEQ/L (136-145)
[2017-01-19 20:01] LABS: ALT (GPT) 29 U/L (12-78)
[2017-01-19 20:03] LABS: ALKALINE PHOSPHATASE 100 U/L (45-117); TOTAL BILIRUBIN ADULT 0.4 MG/DL (0.2-1.0)
[2017-01-19] MEDS: SODIUM CHLOR 0.9% 1000 ML INJ 1,000 ML IV SCH ×2 (20:19→21:00)
--- NOTE | 2017-01-19 20:25 | HHI.PR ---
Immediate Post Op Note Procedure Date: Jan 19, 2017 Pre Op Diagnosis: (1) Pancreatic mass (2) Free intraperitoneal air Post Op Diagnosis: (1) Free intraperitoneal air (2) Peripancreatic fluid collection Surgeon: Varghese Alvarado Efficiency Manager(s): Fam Jacobs MD Procedure: ExLap repair of gastric perforation abdominal washout removal of stent resection of peripancreatic (retroperitoneal) cyst lysis of adhesions Findings: retroperitoneal/peripancreatic cyst small gastric perforation Complications: none Specimen(s) removed: stent cyst Estimated blood loss: 25ml Anesthesia: General Drains: None IVF Patient to: PACU Patient Condition: Varghese Pardo MD Jan 19, 2017 20:25
[2017-01-19] MEDS ORDERED: NALOXONE HCL 0.4 MG/ML AMP IV PRN (20:30)
[2017-01-19] MEDS ORDERED: SODIUM CHLORIDE 0.9% FLUSH 10 ML FLUSH IV FLUSH PRN (20:30)
[2017-01-19] MEDS ORDERED: ONDANSETRON HCL 4 MG/2 ML VIAL IV PRN (20:30)
[2017-01-19] MEDS ORDERED: fentaNYL CITRATE 250 MCG/5 ML AMP ONE (20:32)
[2017-01-19] MEDS: MORPHINE SULFATE 30 MG/30 ML PCA IV SCH (21:43)
[2017-01-19] MEDS: PCA - TOTAL MG MORPHINE DELIVERED PER SHIFT SCH (22:00)
[2017-01-19 22:12] VITALS: PULSE 81
[2017-01-20] VITALS: BP 139/82; PULSE 84; RESP 20; TEMP 96.7; O2SAT 96
[2017-01-20 04:00] VITALS: BP 111/66; PULSE 69; RESP 18; TEMP 98.1; O2SAT 97
[2017-01-20] MEDS: HEPARIN SODIUM - SQ 10,000 UNITS/ML VIAL SQ SCH ×3 (05:06→22:54)
[2017-01-20] MEDS: PCA - TOTAL MG MORPHINE DELIVERED PER SHIFT SCH ×3 (06:00→22:00)
[2017-01-20 06:29] LABS: BASOPHIL # 0.1 TH/MM3 (0-0.2); BASOPHIL % 0.3 % (0.0-2.0); EOSINOPHIL % 0.3 % (0.0-4.0); HEMATOCRIT 28.7 % (39.0-51.0); HEMO FLAGS DIFF FINAL; LYMPH % 9.4 % (9.0-44.0); LYMPHOCYTE # 1.4 TH/MM3 (1.0-4.8); MEAN CELL VOLUME 98.1 FL (80.0-100.0); MEAN CORPUSCULAR HEMOGLOBIN 32.4 PG (27.0-34.0); MEAN CORPUSCULAR HGB CONC 33.1 % (32.0-36.0); MONO % 3.3 % (0.0-8.0); NEUT % 86.7 % (16.0-70.0); PLATELET COUNT 433 TH/MM3 (150-450); RED BLOOD COUNT 2.92 MIL/MM3 (4.50-5.90); RED CELL DISTRIBUTION WIDTH 14.2 % (11.6-17.2); WHITE BLOOD COUNT 14.9 TH/MM3 (4.0-11.0)
[2017-01-20 07:04] LABS: ALKALINE PHOSPHATASE 70 U/L (45-117); ALT (GPT) 26 U/L (12-78); ANION GAP 8 MEQ/L (5-15); AST (GOT) 41 U/L (15-37); BICARBONATE 25.1 MEQ/L (21.0-32.0); BLOOD UREA NITROGEN 19 MG/DL (7-18); CHLORIDE 104 MEQ/L (98-107); GLOMERULAR FILTRATION RATE 72 ML/MIN (>89); POTASSIUM 4.8 MEQ/L (3.5-5.1); SODIUM (NA) 137 MEQ/L (136-145); TOTAL BILIRUBIN ADULT 0.3 MG/DL (0.2-1.0)
[2017-01-20 08:00] VITALS: BP 104/66; PULSE 69; RESP 16; TEMP 98.2; O2SAT 96
[2017-01-20] MEDS: MAGNESIUM HYDROXIDE SUSP 30 ML CUP PO SCH (09:00)
[2017-01-20] MEDS: POLYETHYLENE GLYCOL 17 GM PKG PO SCH (09:00)
[2017-01-20] MEDS: SODIUM CHLORIDE 0.9% FLUSH 10 ML FLUSH IV FLUSH SCH ×2 (09:00→20:35)
[2017-01-20] MEDS: DOCUSATE SODIUM 100 MG CAP PO SCH ×2 (09:07→20:35)
[2017-01-20] MEDS: CIPROFLOXACIN 500 MG TAB PO SCH (09:07)
[2017-01-20] MEDS: SENNOSIDES 8.6 MG TAB PO SCH (09:07)
[2017-01-20] MEDS: PANTOPRAZOLE SOD 20 MG DELAYED RELEASE TAB PO SCH (09:07)
--- NOTE | 2017-01-20 11:57 | HHI.PR ---
Subjective Remarks This is a pleasant 61 y/o Male with Pancreatic cystic Mass, Abdomen/Pelvis CT ()----> 1. Severe hydronephrosis and hydroureter with a markedly abnormal heterogeneous thick walled trabeculated urinary bladder. It is difficult to exclude a bladder malignancy given the markedly heterogeneous appearance. For example a prominent area of thick trabeculated bladder wall is noted superiorly seen best on axial image 52 where a 5.3 x 4.6 cm masslike area is noted. CEA 23.1, CA19-9 228.3, AFP 3.6. Oncology following. Recommends EUS with FNA. Spoke with Dr. Venegas in invasive radiology, no clear window, would have to go through small bowel for FNA, recommend EUS. Per Dr. Jean Flower, the mass seems to more cystic and may be high risk for cutaneous fistula. Pt was accepted at [facility], Dr Bee as same day case for EUS with biopsy and will send patient back afterwards. However, this was not approved by the hospital here and his appointment was cancelled. We recommend EUS with FNA, possible cyst gastrostomy tube if needed, but Dr. Lara is not available until 01/19. From a GI standpoint, pt is stable and could be discharged and return to the hospital on Thursday for procedure. However, patient does not want to be discharged prior to having this done and states that he will not be able to follow up or come back to the hospital if he is discharged before then. Will get GS evaluation, but likely pt will need to have EUS with bx and cyst gastrostomy tube on Thursday. Weight loss 50 Pounds in the past 4 months. 01/14: Seen in his bedroom stable, no nausea, vomit or diarrhea. 01/15: Followed by GI specialist and recommended EUS with FNA possible cyst gastrotomy tube if needed, doctor Lara is available on January 19, from GI specialist the patient may be discharged and come back next Thursday for procedure, but the patient does not want to be discharged he states he wont be able to follow up or come back to the hospital if discharged, Biopsy and Gastrostomy tube next Thursday, Odynophagia resolved, Leukocytosis improved on Cipro, Urinary retention stricture, status post cystoscopy and direct visual internal Urethrotomy 2 bulbar urethral strictures 01/09/17 per , to continue PPI , Supportive care. Seen in his bedroom and discussed with data processing manager Miss Vernon the patient will be transferred to [facility] by [facility] on Home health care for Physical therapy and skilled nurse to continue his Cortes Catheter management and will come back to this facility on Thursday to continue his care. as recommended by GI specialist. 01/16: Stable in his bedroom was discussed with nurse and with data processing manager not able to discharge this patient yesterday due to that will be an Unsafe Discharge. discussed yesterday with GI TABLET TESTER plan is waiting for Doctor Marco. 01/17: Stable no new issues, discussed with nurse Miss Crooks. 01/18: Will have follow up by GI specialist tomorrow to assess his plan of care 01/19: Seen in his bedroom , stable no nausea, vomit or diarrhea, patient was left NPO since yesterday night not eating. 01/20: Seen in his bedroom status post EUS with Cyst Gastrostomy due to Large Pancreatic cyst, found Large Pancreatic Cyst that contains a caitlin thick mucus concerning for a cystadenoma, recommended to await for biopsy, CT abdomen, NG tube to low intermittent suction, after CT Abd and Pelvis found Pneumoperitoneum, status post Surgical Evaluation with Diagnosis of Retroperitoneal/peripancreatic Cyst, Small Gastric Perforation, as per Doctor Varghese Alvarado, Status post Exploratory Laparotomy, Repair of gastric perforation, Abdominal washout, removal of stent, resection of peripancreatic retroperitoneal cyst, Lysis of adhesions. Objective Vital Signs Date Time Temp Pulse Resp B/P Pulse Ox O2 Delivery O2 Flow Rate FiO2 01/20/17 08:00 98.2 69 16 104/66 96 01/20/17 06:00 18 01/20/17 04:00 98.1 69 18 111/66 97 01/20/17 00:00 96.7 84 20 139/82 96 01/19/17 22:12 81 01/19/17 21:43 16 01/19/17 21:00 62 16 166/87 97 Nasal Cannula 3 01/19/17 20:45 60 16 167/85 100 Nasal Cannula 3 01/19/17 20:30 61 16 161/88 94 Nasal Cannula 3 01/19/17 20:28 97.5 66 16 157/89 98 Nasal Cannula 3 01/19/17 18:45 120 22 141/95 Simple Mask 01/19/17 18:30 118 22 127/98 Simple Mask 01/19/17 18:15 114 22 134/91 92 Simple Mask 01/19/17 18:00 106 22 133/85 Nasal Cannula 3 01/19/17 17:45 102 22 110/72 96 Nasal Cannula 3 01/19/17 17:30 104 22 106/75 Nasal Cannula 3 01/19/17 17:23 97.7 100 22 92/63 100 Nasal Cannula 3 01/19/17 12:00 97.5 58 16 108/60 96 I/O 01/19/17 01/19/17 01/19/17 01/20/17 01/20/17 01/20/17 07:00 15:00 23:00 07:00 15:00 23:00 Intake Total 0 ml 1800 ml 931 ml Output Total 1500 ml 600 ml 775 ml 500 ml Balance -1500 ml -600 ml 1025 ml 431 ml Intake Oral 0 ml 0 ml 0 ml IV Total 0 ml 200 ml 931 ml Other 1600 ml Output Urine Total 1500 ml 600 ml 725 ml 400 ml Gastric Drainage Total 0 ml 100 ml Estimated Blood Loss 50 ml Other 0 ml # Bowel Movements 1 Result Diagram: 01/20/17 0520 01/20/17 0520 Imaging Last Impressions Abdomen/Pelvis CT 01/19/17 0000 Signed Impressions: Service Date/Time: Thursday, January 19, 2017 18:07 - CONCLUSION: 1. Massive pneumoperitoneum. 2. Stent/catheter noted within the left upper quadrant. 3. Soft tissue thickening in the pelvis with removal of previous identified masses. DR Lara notified. Viktor Locke MD Abdomen X-Ray 01/19/17 0000 Signed Impressions: Service Date/Time: Thursday, January 19, 2017 16:40 - CONCLUSION: Stent identified within the left upper quadrant. CT of the abdomen would be more sensitive to determine the exact position of this stent. Tyrone Pinon MD Abdomen MRI 01/11/17 0000 Signed Impressions: Service Date/Time: Wednesday, January 11, 2017 18:39 - CONCLUSION: 1. Significant hydronephrosis bilaterally. 2. Cystic mass in the lesser sac does not demonstrate any abnormal enhancement and differential considerations includes benign cystic lesions in addition to cystic neoplasm such as a cystadenoma/cystadenocarcinoma or even IPMN. Love Hernandez MD Chest X-Ray 01/09/17 0000 Signed Impressions: Service Date/Time: Monday, January 09, 2017 05:30 - CONCLUSION: No acute disease. Bienvenido Shaikh MD Procedures ---cystoscopy and direct visual internal urethrotomy of 2 bulbar urethral strictures ---Status post EUS with Cyst Gastrostomy due to Large Pancreatic cyst, found Large Pancreatic Cyst that contains a very thick mucus concerning for a cystadenoma, recommended to await for biopsy ---Status post Surgical Evaluation with Diagnosis of Retroperitoneal/ peripancreatic Cyst, Small Gastric Perforation, as per Doctor Varghese Alvarado, Status post Exploratory Laparotomy, Repair of gastric perforation, Abdominal washout, removal of stent, resection of peripancreatic retroperitoneal cyst, Lysis of adhesions. Other Results Laboratory Tests Test 01/13/17 01/19/17 01/20/17 22:39 18:40 05:20 Red Blood Cell Folate 337 Prothrombin Time 16.2 SEC Prothromb Time International 1.4 RATIO Ratio Activated Partial 26.9 SEC Thromboplast Time White Blood Count 14.9 TH/MM3 Red Blood Count 2.92 MIL/MM3 Hemoglobin 9.5 GM/DL Hematocrit 28.7 % Mean Corpuscular Volume 98.1 FL Mean Corpuscular Hemoglobin 32.4 PG Mean Corpuscular Hemoglobin 33.1 % Concent Red Cell Distribution Width 14.2 % Platelet Count 433 TH/MM3 Mean Platelet Volume 7.7 FL Neutrophils (%) (Auto) 86.7 % Lymphocytes (%) (Auto) 9.4 % Monocytes (%) (Auto) 3.3 % Eosinophils (%) (Auto) 0.3 % Basophils (%) (Auto) 0.3 % Neutrophils # (Auto) 13.0 TH/MM3 Lymphocytes # (Auto) 1.4 TH/MM3 Monocytes # (Auto) 0.5 TH/MM3 Eosinophils # (Auto) 0.0 TH/MM3 Basophils # (Auto) 0.1 TH/MM3 CBC Comment DIFF FINAL Differential Comment Sodium Level 137 MEQ/L Potassium Level 4.8 MEQ/L Chloride Level 104 MEQ/L Carbon Dioxide Level 25.1 MEQ/L Anion Gap 8 MEQ/L Blood Urea Nitrogen 19 MG/DL Creatinine 1.24 MG/DL Estimat Glomerular Filtration 72 ML/MIN Rate Random Glucose 101 MG/DL Calcium Level 8.6 MG/DL Total Bilirubin 0.3 MG/DL Aspartate Amino Transf 41 U/L (AST/SGOT) Alanine Aminotransferase 26 U/L (ALT/SGPT) Alkaline Phosphatase 70 U/L Total Protein 7.1 GM/DL Albumin 2.6 GM/DL Objective Remarks GENERAL: No apparent Distress, denotes chronic illness. SKIN: No rashes, ecchymoses or lesions. Cool and dry. HEAD: Atraumatic. Normocephalic. EYES: No scleral icterus. No injection or drainage. ENT: Nose without bleeding, purulent drainage. NG tube in place. NECK: Trachea midline. No JVD or lymphadenopathy. CARDIOVASCULAR: Regular rate and rhythm without murmurs, gallops, or rubs. RESPIRATORY: Clear to auscultation. Breath sounds equal bilaterally. No wheezes , rales, or rhonchi. GASTROINTESTINAL: Abdomen soft, mild diffuse tenderness status post surgery, dressed surgical wound, vacuum assist closure GENITOURINARY: Cortes with yellow urine. MUSCULOSKELETAL: Extremities without cyanosis, or edema. Extensive clubbing noted. NEUROLOGICAL: Awake and alert. Motor and sensory grossly within normal limits. Normal speech. PSYCH: Mood and affect appropriate. Medications and IVs Current Medications Medications (Trade) Dose Ordered Sig/David Route Start Time Stop Time Status Last Admin (NS Flush) 2 ml UNSCH PRN IV FLUSH 01/09/17 05:00 (NS Flush) 2 ml BID IV FLUSH 01/09/17 09:00 01/19/17 09:26 (Narcan Inj) 0.4 mg UNSCH PRN IV 01/09/17 05:00 (Colace) 100 mg BID PO 01/10/17 13:30 01/20/17 09:07 (Senokot) 17.2 mg DAILY PO 01/10/17 13:30 01/20/17 09:07 (Milk Of Magnesia Liq) 30 ml DAILY PO 01/10/17 13:30 01/18/17 08:17 (Protonix) 20 mg DAILY PO 01/13/17 09:00 01/20/17 09:07 (Roxicodone) 5 mg Q4H PRN PO 01/13/17 12:15 01/19/17 12:52 (Miralax) 17 gm DAILY PO 01/13/17 12:15 01/18/17 08:17 (Ambien) 5 mg HS PRN PO 01/13/17 12:15 Heparin Sodium (Porcine) 5000 units 5,000 units Q8HR SQ 01/13/17 14:00 01/17/17 21:30 (Lr 1000 ml Inj) 1,000 ml @ 30 mls/hr Q24H PRN IV 01/19/17 02:45 01/22/17 02:44 Miscellaneous Information ALL NURSING DEPARTME... UNSCH PRN .XX 01/19/17 17:23 01/20/17 17:22 (NS 1000 ml Inj) 1,000 ml @ 100 mls/hr Q10H IV 01/19/17 20:19 01/19/17 21:00 (NS Flush) 2 ml UNSCH PRN IV FLUSH 01/19/17 20:30 (Zofran Inj) 4 mg Q6H PRN IV 01/19/17 20:30 (Narcan Inj) 0.4 mg UNSCH PRN IV 01/19/17 20:30 (Morphine 1 Mg/ ml RESIDENT CARE ASSOCIATE) 30 mg UNSCH IV 01/19/17 20:30 01/19/17 21:43 RESIDENT CARE ASSOCIATE Dosage Infused (Pha) 1 Q8HR .XX 01/19/17 22:00 01/20/17 06:00 A/P Assessment and Plan This is a pleasant 61 y/o Male with Pancreatic cystic Mass, Abdomen/Pelvis CT ()----> 1. Severe hydronephrosis and hydroureter with a markedly abnormal heterogeneous thick walled trabeculated urinary bladder. It is difficult to exclude a bladder malignancy given the markedly heterogeneous appearance. For example a prominent area of thick trabeculated bladder wall is noted superiorly seen best on axial image 52 where a 5.3 x 4.6 cm masslike area is noted. CEA 23.1, CA19-9 228.3, AFP 3.6. Oncology following. Recommends EUS with FNA. Spoke with Dr. Venegas in invasive radiology, no clear window, would have to go through small bowel for FNA, recommend EUS. Per Dr. Jean Flower, the mass seems to more cystic and may be high risk for cutaneous fistula. Pt was accepted at [facility], Dr Bee as same day case for EUS with biopsy and will send patient back afterwards. However, this was not approved by the hospital here and his appointment was cancelled. We recommend EUS with FNA, possible cyst gastrostomy tube if needed, but Dr. Lara is not available until 01/19. From a GI standpoint, pt is stable and could be discharged and return to the hospital on Thursday for procedure. However, patient does not want to be discharged prior to having this done and states that he will not be able to follow up or come back to the hospital if he is discharged before then. Will get GS evaluation, but likely pt will need to have EUS with for today Weight loss 50 Pounds in the past 4 months. Urinary Retention/ Bladder Mass/ Leukocytosis/Urinary Tract Infection. Presented to the ED for suprapubic pain, hematuria, and penile discharge with bladder mass found on abdominal/pelvis CT with IV contrast. Urology consult appreciated. The pt is s/p cystoscopy and direct visual internal urethrotomy of 2 bulbar urethral strictures. Culture growing E coli. - follow up with urology. Continue Cortes. - will return to by mouth Ciprofloxacin until 01/20/17 Odynophagia with weight loss/ Pancreatic mass, Suspected Possible GI malignancy , Oncology following. GI specialist Notes: 01/15: Followed by GI specialist and recommended EUS with FNA possible cyst gastrotomy tube if needed, doctor Lara is available on January 19, from GI specialist the patient may be discharged and come back next Thursday for procedure, but the patient does not want to be discharged he states he wont be able to follow up or come back to the hospital if discharged, Biopsy and Gastrostomy tube next Thursday, Odynophagia resolved, Leukocytosis improved on Cipro, Urinary retention stricture, status post cystoscopy and direct visual internal Urethrotomy 2 bulbar urethral strictures 01/09/17 per , to continue PPI , Supportive care. Seen in his bedroom and discussed with data processing manager Miss Vernon the patient will be transferred to a [facility] by [facility] on Home health care for Physical therapy and skilled nurse to continue his Cortes Catheter management and will come back to this facility on Thursday to continue his care. not able to discharge due to unsafe discharge awaiting fo Doctor Lara Status post EUS with Cyst Gastrostomy due to Large Pancreatic cyst, found Large Pancreatic Cyst that contains a very thick mucus concerning for a cystadenoma, recommended to await for biopsy, CT abdomen, NG tube to low intermittent suction, after CT Abd and Pelvis found Pneumoperitoneum, status post Surgical Evaluation with Diagnosis of Retroperitoneal/peripancreatic Cyst, Small Gastric Perforation, as per Doctor Varghese Alvarado, Status post Exploratory Laparotomy, Repair of gastric perforation, Abdominal washout, removal of stent, resection of peripancreatic retroperitoneal cyst, Lysis of adhesions. Constipation Improved. Acute respiratory insufficiency Improved, continue Bronchodilator, Mucolytic and incentive spirometry. Anemia stable DVT prophylaxis: Heparin Discussed with Patient in the room, all questions answered to the best of my abilities. Discharge Planning Not yet cleared for discharge. Uvaldo Louise MD Jan 20, 2017 11:57
[2017-01-20 12:00] VITALS: BP 114/71; PULSE 64; RESP 17; TEMP 97.7; O2SAT 97
--- NOTE | 2017-01-20 14:55 | HHI.PR ---
Subjective Subjective Notes Resting in bed No complaints DIRECTOR CARDIOLOGY is adequate pain control Objective Vitals/I&O Vital Signs Date Time Temp Pulse Resp B/P Pulse Ox O2 Delivery O2 Flow Rate FiO2 01/20/17 14:00 18 01/20/17 12:00 97.7 64 114/71 97 01/19/17 21:00 Nasal Cannula 3 Labs Laboratory Tests Test 01/19/17 01/20/17 18:40 05:20 White Blood Count 23.4 14.9 Red Blood Count 3.72 2.92 Hemoglobin 12.2 9.5 Hematocrit 36.9 28.7 Mean Corpuscular Volume 99.3 98.1 Mean Corpuscular Hemoglobin 32.8 32.4 Mean Corpuscular Hemoglobin 33.0 33.1 Concent Red Cell Distribution Width 14.5 14.2 Platelet Count 634 433 Mean Platelet Volume 8.1 7.7 Neutrophils (%) (Auto) 76.0 86.7 Lymphocytes (%) (Auto) 19.2 9.4 Monocytes (%) (Auto) 3.4 3.3 Eosinophils (%) (Auto) 0.9 0.3 Basophils (%) (Auto) 0.5 0.3 Neutrophils # (Auto) 17.8 13.0 Lymphocytes # (Auto) 4.5 1.4 Monocytes # (Auto) 0.8 0.5 Eosinophils # (Auto) 0.2 0.0 Basophils # (Auto) 0.1 0.1 CBC Comment DIFF FINAL DIFF FINAL Differential Comment Prothrombin Time 16.2 Prothromb Time International 1.4 Ratio Activated Partial 26.9 Thromboplast Time Sodium Level 130 137 Potassium Level 4.1 4.8 Chloride Level 97 104 Carbon Dioxide Level 26.0 25.1 Anion Gap 7 8 Blood Urea Nitrogen 20 19 Creatinine 1.51 1.24 Estimat Glomerular Filtration 57 72 Rate Random Glucose 157 101 Calcium Level 9.7 8.6 Total Bilirubin 0.4 0.3 Aspartate Amino Transf 25 41 (AST/SGOT) Alanine Aminotransferase 29 26 (ALT/SGPT) Alkaline Phosphatase 100 70 Total Protein 9.7 7.1 Albumin 3.8 2.6 Cardiovascular: Regular Lungs: Clear Abdomen: Other (midline incision with GAYLE in place; abdominal mildly distended ), Post-op tenderness Extremities: No edema A/P Assessment and Plan 61 year old male s/p EUS with cyst gastrostomy; after procedure developed severe abdominal pain; CT abd/pelvis showed free air; patient taken to OR POD1 ex lap; repair of gastric perforation; abdominal washout; removal of stent; resection of peripancreatic (retroperitoneal) cyst and lysis of adhesions -DIRECTOR CARDIOLOGY for pain control -Continue IVF -OOB to chair as tolerated -Labs in AM -IS Attending Statement The exam, history, and the medical decision-making described in the above note were completed with the assistance of the mid-level provider. I reviewed and agree with the findings presented. I attest that I had a [id number] encounter with the patient on the same day, and personally performed and documented my assessment and findings in the medical record. Abdominal exam: stable postoperative, surgical incisions clean, intact, no peritonitis, no wound infection will jabari DOUGHERTY Kathryn B. ARNP Jan 20, 2017 14:55 Varghese Alvarado MD Jan 22, 2017 22:38
[2017-01-20 16:00] VITALS: BP 118/77; PULSE 59; RESP 17; TEMP 96.7; O2SAT 92
[2017-01-20] MEDS: SODIUM CHLOR 0.9% 1000 ML INJ 1,000 ML IV SCH (16:22)
[2017-01-20 20:00] VITALS: BP 114/72; PULSE 71; RESP 18; TEMP 98.9; O2SAT 96
[2017-01-21] VITALS: BP 114/75; PULSE 71; RESP 20; TEMP 98.6; O2SAT 92
[2017-01-21 04:00] VITALS: BP 118/64; PULSE 61; RESP 18; TEMP 99.1; O2SAT 92
[2017-01-21] MEDS: SODIUM CHLOR 0.9% 1000 ML INJ 1,000 ML IV SCH ×3 (05:45→13:29)
[2017-01-21] MEDS: PCA - TOTAL MG MORPHINE DELIVERED PER SHIFT SCH ×3 (05:45→22:00)
[2017-01-21] MEDS: HEPARIN SODIUM - SQ 10,000 UNITS/ML VIAL SQ SCH ×3 (05:45→20:38)
[2017-01-21 06:26] LABS: AUTOMATED NEUTROPHIL # 9.7 TH/MM3 (1.8-7.7); BASOPHIL # 0.1 TH/MM3 (0-0.2); BASOPHIL % 0.6 % (0.0-2.0); EOSINOPHIL # 0.2 TH/MM3 (0-0.4); EOSINOPHIL % 1.8 % (0.0-4.0); HEMATOCRIT 31.9 % (39.0-51.0); HEMO FLAGS DIFF FINAL; LYMPH % 17.5 % (9.0-44.0); LYMPHOCYTE # 2.4 TH/MM3 (1.0-4.8); MEAN CELL VOLUME 100.6 FL (80.0-100.0); MEAN CORPUSCULAR HEMOGLOBIN 31.8 PG (27.0-34.0); MEAN CORPUSCULAR HGB CONC 31.6 % (32.0-36.0); MONO % 8.5 % (0.0-8.0); NEUT % 71.6 % (16.0-70.0); PLATELET COUNT 409 TH/MM3 (150-450); RED BLOOD COUNT 3.17 MIL/MM3 (4.50-5.90); RED CELL DISTRIBUTION WIDTH 14.1 % (11.6-17.2); WHITE BLOOD COUNT 13.5 TH/MM3 (4.0-11.0)
[2017-01-21 06:35] LABS: ALKALINE PHOSPHATASE 70 U/L (45-117); TOTAL BILIRUBIN ADULT 0.4 MG/DL (0.2-1.0)
[2017-01-21 06:36] LABS: ALT (GPT) 27 U/L (12-78); ANION GAP 8 MEQ/L (5-15); AST (GOT) 45 U/L (15-37); BLOOD UREA NITROGEN 13 MG/DL (7-18); CHLORIDE 104 MEQ/L (98-107); GLOMERULAR FILTRATION RATE 91 ML/MIN (>89); POTASSIUM 4.6 MEQ/L (3.5-5.1); SODIUM (NA) 134 MEQ/L (136-145)
[2017-01-21 08:00] VITALS: BP 151/87; PULSE 77; RESP 16; TEMP 96.4; O2SAT 94
[2017-01-21] MEDS: SODIUM CHLORIDE 0.9% FLUSH 10 ML FLUSH IV FLUSH SCH ×2 (08:35→20:38)
[2017-01-21] MEDS: POLYETHYLENE GLYCOL 17 GM PKG PO SCH (08:35)
[2017-01-21] MEDS: MAGNESIUM HYDROXIDE SUSP 30 ML CUP PO SCH (08:35)
[2017-01-21] MEDS: SENNOSIDES 8.6 MG TAB PO SCH (08:35)
[2017-01-21] MEDS: PANTOPRAZOLE SOD 20 MG DELAYED RELEASE TAB PO SCH (08:35)
[2017-01-21] MEDS: DOCUSATE SODIUM 100 MG CAP PO SCH ×2 (08:35→20:38)
[2017-01-21] MEDS: MORPHINE SULFATE 30 MG/30 ML PCA IV SCH (11:35)
[2017-01-21 12:00] VITALS: BP 143/88; PULSE 66; RESP 16; TEMP 98.4; O2SAT 97
--- NOTE | 2017-01-21 13:57 | HHI.GIFU ---
Subjective Remarks Pt resting in bed in no apparent distress. No n/v. Tolerating clears. does not contribute further. (Mei Galeas) Objective Vitals I&O Vital Signs Date Time Temp Pulse Resp B/P Pulse Ox O2 Delivery O2 Flow Rate FiO2 01/21/17 12:00 98.4 66 16 143/88 97 01/21/17 11:35 18 01/21/17 08:00 96.4 77 16 151/87 94 01/21/17 05:45 16 01/21/17 04:00 99.1 61 18 118/64 92 01/21/17 00:00 98.6 71 20 114/75 92 01/20/17 20:00 98.9 71 18 114/72 96 01/20/17 16:00 96.7 59 17 118/77 92 01/20/17 14:00 18 I/O 01/20/17 01/20/17 01/20/17 01/21/17 01/21/17 01/21/17 07:00 15:00 23:00 07:00 15:00 23:00 Intake Total 931 ml 0 ml 610 ml 850 ml Output Total 500 ml 400 ml 1025 ml 800 ml Balance 431 ml -400 ml -415 ml 50 ml Intake Oral 0 ml 0 ml 360 ml 120 ml IV Total 931 ml 250 ml 730 ml Output Urine Total 400 ml 400 ml 1025 ml 800 ml Gastric Drainage Total 100 ml # Bowel Movements 0 Laboratory Laboratory Tests Test 01/21/17 04:45 White Blood Count 13.5 Red Blood Count 3.17 Hemoglobin 10.1 Hematocrit 31.9 Mean Corpuscular Volume 100.6 Mean Corpuscular Hemoglobin 31.8 Mean Corpuscular Hemoglobin 31.6 Concent Red Cell Distribution Width 14.1 Platelet Count 409 Mean Platelet Volume 7.9 Neutrophils (%) (Auto) 71.6 Lymphocytes (%) (Auto) 17.5 Monocytes (%) (Auto) 8.5 Eosinophils (%) (Auto) 1.8 Basophils (%) (Auto) 0.6 Neutrophils # (Auto) 9.7 Lymphocytes # (Auto) 2.4 Monocytes # (Auto) 1.2 Eosinophils # (Auto) 0.2 Basophils # (Auto) 0.1 CBC Comment DIFF FINAL Differential Comment Sodium Level 134 Potassium Level 4.6 Chloride Level 104 Carbon Dioxide Level 22.0 Anion Gap 8 Blood Urea Nitrogen 13 Creatinine 1.01 Estimat Glomerular Filtration 91 Rate Random Glucose 78 Calcium Level 9.3 Total Bilirubin 0.4 Aspartate Amino Transf 45 (AST/SGOT) Alanine Aminotransferase 27 (ALT/SGPT) Alkaline Phosphatase 70 Total Protein 7.5 Albumin 2.6 Imaging Last Impressions Abdomen/Pelvis CT 01/19/17 0000 Signed Impressions: Service Date/Time: Thursday, January 19, 2017 18:07 - CONCLUSION: 1. Massive pneumoperitoneum. 2. Stent/catheter noted within the left upper quadrant. 3. Soft tissue thickening in the pelvis with removal of previous identified masses. DR Lara notified. Viktor Locke MD Abdomen X-Ray 01/19/17 0000 Signed Impressions: Service Date/Time: Thursday, January 19, 2017 16:40 - CONCLUSION: Stent identified within the left upper quadrant. CT of the abdomen would be more sensitive to determine the exact position of this stent. Tyrone Pinon MD Abdomen MRI 01/11/17 0000 Signed Impressions: Service Date/Time: Wednesday, January 11, 2017 18:39 - CONCLUSION: 1. Significant hydronephrosis bilaterally. 2. Cystic mass in the lesser sac does not demonstrate any abnormal enhancement and differential considerations includes benign cystic lesions in addition to cystic neoplasm such as a cystadenoma/cystadenocarcinoma or even IPMN. Love Hernandez MD Chest X-Ray 01/09/17 0000 Signed Impressions: Service Date/Time: Monday, January 09, 2017 05:30 - CONCLUSION: No acute disease. Bienvenido Shaikh MD Physical Exam HEENT: PERRLA, Normocephalic; atraumatic CHEST: Resp. even/unlabored, diminished CARDIAC: RRR ABDOMEN: Soft, nondistended, TTP around incision, dressing with some old blood ; no hepatosplenomegaly; bowel sounds are present in all four quadrants. EXTREMITIES: No clubbing, cyanosis, or edema. SKIN: Normal; no rash; no jaundice. DYNAMOTOR REPAIRER: Alert, oriented. (Mei Galeas) Assessment and Plan Plan ASSESSMENT - Pancreatic cystic mass. Abdomen/Pelvis CT (01/09/17)----> 1. Severe hydronephrosis and hydroureter with a markedly abnormal heterogeneous thick walled trabeculated urinary bladder. It is difficult to exclude a bladder malignancy given the markedly heterogeneous appearance. For example a prominent area of thick trabeculated bladder wall is noted superiorly seen best on axial image 52 where a 5.3 x 4.6 cm masslike area is noted. 2. Extensive atherosclerotic disease. 3. Prominent heterogeneous prostate. 4. Indeterminate cystic-appearing mass of the upper abdomen appears to arise from the pancreas with extrapancreatic component suggesting a large mildly complex cyst. There is some peripheral punctate calcification. Surgery should be considered for asymptomatic pancreatic cysts >3 cm, generally subsequent to aspiration. If the lesion is a cystadenoma, surgery is deferred until the emergency dispatch operator is > 4 cm. Solid pseudopapillary epithelial neoplasm tumors should be resected. Patient factors ultimately determine the appropriateness of surgical treatment. 5. Juanita LL, Jolanta SG, Neftali ARENAS et al; Managing Incidental Findings on Abdominal CT: White Paper of the ACR Incidental Findings Committee. Abdomen MRI (01/11/17)-----> 1. Significant hydronephrosis bilaterally. 2. Cystic mass in the lesser sac does not demonstrate any abnormal enhancement and differential considerations includes benign cystic lesions in addition to cystic neoplasm such as a cystadenoma/cystadenocarcinoma or even IPMN. He is not aware of any history of pancreatitis, but does have extensive etoh use history. CEA 23.1, CA19-9 228.3, AFP 3.6. Oncology following. 01-21 - s/p EUS with cyst gastrostomy --. pancreatic cyst contains thick mucus , conerning for cystadenoma. Pt with pneumoperitoneum after procedure and s/p ex lap with repair gastric perforation, abd washout, resection peripancreatic cyst, lysis adhesions - Weight loss. 50 lb weight loss in past 4 months. Never had egd/colonoscopy - Odynophagia, resolved. - Anemia. stable No acute blood loss. - Leukocytosis- 13.5 01/21 - Urinary retention, stricture. S/P cystoscopy and direct visual internal urethrotomy of 2 bulbar urethral strictures (01/09/17) per . PLAN - await path - diet per GS - PPI - monitor labs - Supportive care - Further recommendations to follow based on results of above Patient seen and examined by Dr. Lara and myself and this note was written on his behalf . 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
--- NOTE | 2017-01-21 14:59 | HHI.PR ---
Subjective Remarks Follow up for bladder mass, pancreatic mass. Patient is currently doing well. He complains of abdominal pain when he coughs. He also requests advancing his diet. Objective Vitals Vital Signs Date Time Temp Pulse Resp B/P Pulse Ox O2 Delivery O2 Flow Rate FiO2 01/21/17 14:00 17 01/21/17 12:00 98.4 66 16 143/88 97 01/21/17 11:35 18 01/21/17 08:00 96.4 77 16 151/87 94 01/21/17 05:45 16 01/21/17 04:00 99.1 61 18 118/64 92 01/21/17 00:00 98.6 71 20 114/75 92 01/20/17 20:00 98.9 71 18 114/72 96 01/20/17 16:00 96.7 59 17 118/77 92 I/O 01/20/17 01/20/17 01/20/17 01/21/17 01/21/17 01/21/17 07:00 15:00 23:00 07:00 15:00 23:00 Intake Total 931 ml 0 ml 610 ml 850 ml 360 ml Output Total 500 ml 400 ml 1025 ml 800 ml 750 ml Balance 431 ml -400 ml -415 ml 50 ml -390 ml Intake Oral 0 ml 0 ml 360 ml 120 ml 360 ml IV Total 931 ml 250 ml 730 ml Output Urine Total 400 ml 400 ml 1025 ml 800 ml 750 ml Gastric Drainage Total 100 ml # Bowel Movements 0 0 Result Diagram: 01/21/17 0445 01/21/17 0445 Imaging Last Impressions Abdomen/Pelvis CT 01/19/17 0000 Signed Impressions: Service Date/Time: Thursday, January 19, 2017 18:07 - CONCLUSION: 1. Massive pneumoperitoneum. 2. Stent/catheter noted within the left upper quadrant. 3. Soft tissue thickening in the pelvis with removal of previous identified masses. DR Lara notified. Viktor Locke MD Abdomen X-Ray 01/19/17 0000 Signed Impressions: Service Date/Time: Thursday, January 19, 2017 16:40 - CONCLUSION: Stent identified within the left upper quadrant. CT of the abdomen would be more sensitive to determine the exact position of this stent. Tyrone Pinon MD Abdomen MRI 01/11/17 0000 Signed Impressions: Service Date/Time: Wednesday, January 11, 2017 18:39 - CONCLUSION: 1. Significant hydronephrosis bilaterally. 2. Cystic mass in the lesser sac does not demonstrate any abnormal enhancement and differential considerations includes benign cystic lesions in addition to cystic neoplasm such as a cystadenoma/cystadenocarcinoma or even IPMN. Love Hernandez MD Chest X-Ray 01/09/17 0000 Signed Impressions: Service Date/Time: Monday, January 09, 2017 05:30 - CONCLUSION: No acute disease. Bienvenido Shaikh MD Objective Remarks GENERAL: Alert, NAD. SKIN: Warm and dry. HEAD: Normocephalic. EYES: No scleral icterus. No injection or drainage. NECK: Supple, trachea midline. No JVD or lymphadenopathy. CARDIOVASCULAR: Regular rate and rhythm without murmurs, gallops, or rubs. RESPIRATORY: Breath sounds equal bilaterally. No accessory muscle use. GASTROINTESTINAL: Abdomen distended, firm, mildly tender to palpation. MUSCULOSKELETAL: No cyanosis, or edema. BACK: Nontender without obvious deformity. No CVA tenderness. Procedures cystoscopy and direct visual internal urethrotomy of 2 bulbar urethral strictures A/P Problem List: (1) Bladder mass ICD Code: N32.89 Status: Acute (2) Urinary retention ICD Code: R33.9 Status: Acute Assessment and Plan Mr. Purvis is a 61-year-old male with a history of alcohol, tobacco, substance abuse who presented to the emergency department due to suprapubic pain, milky penile discharge and hematuria. CT abdomen pelvis showed severe hydronephrosis and hydroureter with a markedly abnormal heterogeneous thick-walled trabeculated urinary bladder. A mass of 5.3 x 4.6 cm was also suspected. There was also a cystic appearing mass arising from the pancreas with extrapancreatic component which was found to be a large complex cyst. 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 Patient also underwent cystoscopy and direct visualization by urology on 01/09/2017. Due to intra-abdominal free air post procedure on 2016, patient underwent exploratory laparotomy, primary repair of gastric perforation, abdominal washout, and removal of PD pancreatic cyst stent, resection of peripancreatic cyst and lysis of adhesions. - Bilateral hydronephrosis - Bilateral hydroureter - Likely due to bladder outlet obstruction. - Status post cystoscopy, insertion of Cortes catheter. On cystoscopy there was no discrete bladder tumor. - Patient completed a course of ciprofloxacin. - Pancreatic mass - Pneumoperitoneum - Gastric perforation - Status post repair of gastric perforation, exploratory laparoscopy, removal of stent, resection of peripancreatic cyst. - Indeterminant cystic appearing mass arising from pancreas with extrapancreatic component. CEA and CA 199 levels are elevated. - Surgical pathology pending. - Surgery following. Patient's diet can likely be advanced. Will leave it up to Surgery. - Oxycodone PRN. - Acute kidney injury - Improved with supportive care. Creatinine 1.67 --> 1.01. Full code. Heparin 5000 units SQ. Rosangela Tucker DO Jan 21, 2017 2:59 pm back next Thursday for procedure, but the patient does not want to be discharged he states he wont be able to follow up or come back to the hospital if discharged, Biopsy and Gastrostomy tube next Thursday, Odynophagia resolved, Leukocytosis improved on Cipro, Urinary retention stricture, status post cystoscopy and direct visual internal Urethrotomy 2 bulbar urethral strictures 01/09/17 per , to continue PPI , Supportive care. Seen in his bedroom and discussed with manager of tax Miss Vernon the patient will be transferred to [facility] on Home health care for Physical therapy and skilled nurse to continue his Cortes Catheter management and will come back to this facility on Thursday to continue his care. not able to discharge due to unsafe discharge awaiting fo Doctor Lara Status post EUS with Cyst Gastrostomy due to Large Pancreatic cyst, found Large Pancreatic Cyst that contains a very thick mucus concerning for a cystadenoma, recommended to await for biopsy, CT abdomen, NG tube to low intermittent suction, after CT Abd and Pelvis found Pneumoperitoneum, status post Surgical Evaluation with Diagnosis of Retroperitoneal/peripancreatic Cyst, Small Gastric Perforation, as per Doctor Varghese Alvarado, Status post Exploratory Laparotomy, Repair of gastric perforation, Abdominal washout, removal of stent, resection of peripancreatic retroperitoneal cyst, Lysis of adhesions. Constipation Improved. Acute respiratory insufficiency Improved, continue Bronchodilator, Mucolytic and incentive spirometry. Anemia stable DVT prophylaxis: Heparin Rosangela Tucker DO Jan 21, 2017 14:59
[2017-01-21 16:00] VITALS: BP 145/90; PULSE 75; RESP 18; TEMP 98.3; O2SAT 95
--- NOTE | 2017-01-21 16:24 | HHI.PR ---
Subjective Subjective Notes Resting in bed has been OOB all morning Objective Vitals/I&O Vital Signs Date Time Temp Pulse Resp B/P Pulse Ox O2 Delivery O2 Flow Rate FiO2 01/21/17 14:00 17 01/21/17 12:00 98.4 66 143/88 97 01/19/17 21:00 Nasal Cannula 3 Labs Laboratory Tests Test 01/21/17 04:45 White Blood Count 13.5 Red Blood Count 3.17 Hemoglobin 10.1 Hematocrit 31.9 Mean Corpuscular Volume 100.6 Mean Corpuscular Hemoglobin 31.8 Mean Corpuscular Hemoglobin 31.6 Concent Red Cell Distribution Width 14.1 Platelet Count 409 Mean Platelet Volume 7.9 Neutrophils (%) (Auto) 71.6 Lymphocytes (%) (Auto) 17.5 Monocytes (%) (Auto) 8.5 Eosinophils (%) (Auto) 1.8 Basophils (%) (Auto) 0.6 Neutrophils # (Auto) 9.7 Lymphocytes # (Auto) 2.4 Monocytes # (Auto) 1.2 Eosinophils # (Auto) 0.2 Basophils # (Auto) 0.1 CBC Comment DIFF FINAL Differential Comment Sodium Level 134 Potassium Level 4.6 Chloride Level 104 Carbon Dioxide Level 22.0 Anion Gap 8 Blood Urea Nitrogen 13 Creatinine 1.01 Estimat Glomerular Filtration 91 Rate Random Glucose 78 Calcium Level 9.3 Total Bilirubin 0.4 Aspartate Amino Transf 45 (AST/SGOT) Alanine Aminotransferase 27 (ALT/SGPT) Alkaline Phosphatase 70 Total Protein 7.5 Albumin 2.6 Cardiovascular: Regular Lungs: Clear Abdomen: Other (GAYLE in place; minimal drainage on dressing; abd soft; tender to palpation ) Extremities: No edema A/P Assessment and Plan 61 year old male s/p EUS with cyst gastrostomy; after procedure developed severe abdominal pain; CT abd/pelvis showed free air; patient taken to OR POD2 ex lap; repair of gastric perforation; abdominal washout; removal of stent; resection of peripancreatic (retroperitoneal) cyst and lysis of adhesions -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 I reviewed and agree with the findings presented. I attest that I had a [id number] encounter with the patient on the same day, and personally performed and documented my assessment and findings in the medical record. Abdominal exam: stable postoperative, surgical incisions clean, intact, mildly bloated advance diet slowly, OOB, await bowel function María Adame Jan 21, 2017 16:24 Varghese Alvarado MD Jan 22, 2017 22:41
[2017-01-21 20:00] VITALS: BP 148/92; PULSE 71; RESP 24; TEMP 97.4; O2SAT 95
[2017-01-22] VITALS (8 sets, daily range): BP systolic 98–161; BP diastolic 71–96; PULSE 63–115; RESP 16–24; TEMP 96.6–98.8; O2SAT 92–98
[2017-01-22] MEDS: PCA - TOTAL MG MORPHINE DELIVERED PER SHIFT SCH ×2 (05:44→14:00)
[2017-01-22] MEDS: HEPARIN SODIUM - SQ 10,000 UNITS/ML VIAL SQ SCH ×3 (06:00→22:01)
--- NOTE | 2017-01-22 08:17 | MP ---
cc: LUIS ADLER DATE OF SURGERY 01/19/2017 PREOPERATIVE DIAGNOSES 1. Intraabdominal free air. 1. Pancreatic cyst. POSTOPERATIVE DIAGNOSES 1. Intraabdominal free air. 2. Gastric perforation of the posterior body. 3. Peripancreatic retroperitoneal cyst containing mucin. ATTENDING SURGEON Luis Adler MD SLOPE TENDER Jose Jacobs MD ANESTHESIA General. PROCEDURE 1. Exploratory laparotomy. 2. Primary repair of gastric perforation. 3. Abdominal washout. 4. Removal of peripancreatic cyst stent. 5. Resection of peripancreatic (retroperitoneal) cyst. 6. Lysis of adhesions. FINDINGS A retroperitoneal cyst containing mucin that was not adherent or associated with any organ, not the stomach, not the pancreas. Some adhesions in the pelvis consistent with the patient's previous appendectomy, small gastric perforation less than 1 cm of the posterior body of the stomach, completely normal pancreas grossly. COMPLICATIONS None. BLOOD LOSS 25 cc. INDICATIONS FOR PROCEDURE The patient is a 61-year-old -[place] male who was admitted to [facility] with urinary retention. The patient also was found to have a peripancreatic cyst that was concerning for possible pancreatic origin. The patient was undergoing an EUS by Dr. Lara and at that time this cyst appeared to be pseudocyst and internal drainage was attempted. This unfortunately revealed that this cyst was not a pseudocyst that was adhered to the stomach but rather the stomach and the cyst were not adhered and this led to a large amount of free air entering the abdomen after the stent was placed. The patient in the recovery room did have significant pain and peritonitis on exam and imaging did reveal a large amount of free air. I did discussed with the patient about the findings and due to the large amount of free air, likely the patient would need operative intervention for perforated viscus. We discussed the risks, benefits and alternatives with the patient and he agreed to undergo the procedure. PROCEDURE The patient was taken to the operating room from the recovery room and placed under general endotracheal anesthesia. The patient's abdomen was shaved, prepped and draped in a sterile fashion. Time-out was performed. The abdomen was entered through an upper midline incision with the 10 blade scalpel. Bovie electrocautery was used to dissect the subcutaneous tissue and open the midline fascia from below the xiphoid to just below the umbilicus. Then placed the hand retractors finding a large amount of free air. There was no free fluid. There were no signs of any peritonitis. We opened the lesser sac using the Bovie electrocautery. We easily identified the perforation at the posterior stomach. This was oversewn in two layers with 3-0 silk sutures for complete closure. The tissue was healthy, pink and viable and there was no bleeding. We then turned our attention towards the cyst. The stent was into the cyst; this was removed and passed off. We did notice that the cyst was abutting the pancreas and the stomach; however, this did not invade any structure and seemed to be coming from no structure, was more like a primary mucin-producing structure. We used Bovie electrocautery to very simply excise the cyst from the retroperitoneum. Again, it was not adhered to any structures including the pancreas. This was passed off for permanent processing. There was some mucin spillage that was present from the stent placement; this was all irrigated out and the abdomen was washed out with several liters of sterile saline until all suctioning was clear and all mucin was removed. We were then able to evaluate the pancreas. There was a grossly totally normal pancreas, no obvious pathology whatsoever. We able to ensure that the NG tube was in good position in the stomach. We ran the small bowel. There were some small adhesions adhering the distal small bowel down to the bladder in the pelvis and these were lysed using the Bovie electrocautery. There was a very thickened, abnormal bladder but there was no signs of any carcinomatosis or any malignancy grossly in the abdomen and it felt like there was no further biopsy warranted. We then turned our attention towards closure. We returned the bowel to a normal anatomic location. We closed the abdomen with a running #1 looped PDS suture. We closed the skin with colt and a Hakeem dressing was applied. The patient was discontinued from anesthesia and taken to the PACU in stable condition. The patient tolerated the procedure well, no apparent complications. All counts were correct. I was present and scrubbed for the entire procedure. MD NAYE Augustin/ALIZA /8:33 PM /7:57 AM
[2017-01-22] MEDS: SODIUM CHLOR 0.9% 1000 ML INJ 1,000 ML IV SCH ×2 (08:19→18:19)
[2017-01-22] MEDS: PANTOPRAZOLE SOD 20 MG DELAYED RELEASE TAB PO SCH (09:00)
[2017-01-22] MEDS: MAGNESIUM HYDROXIDE SUSP 30 ML CUP PO SCH (09:00)
[2017-01-22] MEDS: POLYETHYLENE GLYCOL 17 GM PKG PO SCH (09:00)
[2017-01-22] MEDS: SODIUM CHLORIDE 0.9% FLUSH 10 ML FLUSH IV FLUSH SCH ×2 (09:00→22:03)
[2017-01-22] MEDS: DOCUSATE SODIUM 100 MG CAP PO SCH ×2 (09:31→22:03)
[2017-01-22] MEDS: SENNOSIDES 8.6 MG TAB PO SCH (09:31)
--- NOTE | 2017-01-22 15:43 | HHI.PR ---
Subjective Subjective Notes Resting in bed No issues overnight Hungry Objective Vitals/I&O Vital Signs Date Time Temp Pulse Resp B/P Pulse Ox O2 Delivery O2 Flow Rate FiO2 01/22/17 14:00 18 01/22/17 12:54 01/22/17 12:00 97.8 63 96 01/19/17 21:00 Nasal Cannula 3 Cardiovascular: Regular Lungs: Clear Abdomen: Other (midline incison with GAYLE in place; abdomen soft; mildly tender to palation ) Extremities: No edema A/P Assessment and Plan 61 year old male s/p EUS with cyst gastrostomy; after procedure developed severe abdominal pain; CT abd/pelvis showed free air; patient taken to OR POD3 ex lap; repair of gastric perforation; abdominal washout; removal of stent; resection of peripancreatic (retroperitoneal) cyst and lysis of adhesions -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 I reviewed and agree with the findings presented. I attest that I had a [id number] encounter with the patient on the same day, and personally performed and documented my assessment and findings in the medical record. Abdominal exam: stable postoperative, surgical incisions clean, intact, no peritonitis, no wound infection advance diet OOB once has full return of bowel function can DC home from surgery standpoint path shows benign cyst, d/w patient will need urology followup María Adame Jan 22, 2017 15:43 Varghese Alvarado MD Jan 22, 2017 22:51
--- NOTE | 2017-01-22 16:57 | HHI.PR ---
Subjective Remarks Follow up for hydronephrosis, hydroureter, pancreatic mass. Patient is complaining of abdominal pain when he coughs. He is currently on full liquid diet and tolerating well. No fever or chills. Objective Vitals Vital Signs Date Time Temp Pulse Resp B/P Pulse Ox O2 Delivery O2 Flow Rate FiO2 01/22/17 16:00 98.0 84 16 131/95 97 01/22/17 16:00 98.0 84 16 131/95 97 01/22/17 14:00 18 01/22/17 12:54 01/22/17 12:00 97.8 63 16 135/74 96 01/22/17 11:15 01/22/17 08:00 98.1 70 16 130/91 96 01/22/17 05:44 18 01/22/17 04:00 98.1 78 24 128/90 92 01/22/17 00:00 98.8 73 24 161/96 97 01/21/17 22:00 18 01/21/17 20:00 97.4 71 24 148/92 95 I/O 01/21/17 01/21/17 01/21/17 01/22/17 01/22/17 01/22/17 07:00 15:00 23:00 07:00 15:00 23:00 Intake Total 850 ml 1227 ml 240 ml 1080 ml 1920 ml Output Total 800 ml 750 ml 2325 ml 800 ml 750 ml Balance 50 ml 477 ml -2085 ml 280 ml 1170 ml Intake Oral 120 ml 360 ml 240 ml 240 ml 1220 ml IV Total 730 ml 867 ml 840 ml 700 ml Output Urine Total 800 ml 750 ml 2325 ml 800 ml 750 ml # Voids 1 # Bowel Movements 0 0 Result Diagram: 01/21/17 0445 01/21/17 0445 Imaging Last Impressions Abdomen/Pelvis CT 01/19/17 0000 Signed Impressions: Service Date/Time: Thursday, January 19, 2017 18:07 - CONCLUSION: 1. Massive pneumoperitoneum. 2. Stent/catheter noted within the left upper quadrant. 3. Soft tissue thickening in the pelvis with removal of previous identified masses. DR Lara notified. Viktor Locke MD Abdomen X-Ray 01/19/17 0000 Signed Impressions: Service Date/Time: Thursday, January 19, 2017 16:40 - CONCLUSION: Stent identified within the left upper quadrant. CT of the abdomen would be more sensitive to determine the exact position of this stent. Tyrone Pinon MD Abdomen MRI 01/11/17 0000 Signed Impressions: Service Date/Time: Wednesday, January 11, 2017 18:39 - CONCLUSION: 1. Significant hydronephrosis bilaterally. 2. Cystic mass in the lesser sac does not demonstrate any abnormal enhancement and differential considerations includes benign cystic lesions in addition to cystic neoplasm such as a cystadenoma/cystadenocarcinoma or even IPMN. Love Hernandez MD Chest X-Ray 01/09/17 0000 Signed Impressions: Service Date/Time: Monday, January 09, 2017 05:30 - CONCLUSION: No acute disease. Bienvenido Shaikh MD Objective Remarks GENERAL: Alert, NAD. SKIN: Warm and dry. HEAD: Normocephalic. EYES: No scleral icterus. No injection or drainage. NECK: Supple, trachea midline. No JVD or lymphadenopathy. CARDIOVASCULAR: Regular rate and rhythm without murmurs, gallops, or rubs. RESPIRATORY: Breath sounds equal bilaterally. No accessory muscle use. GASTROINTESTINAL: Abdomen distended, firm, mildly tender to palpation. MUSCULOSKELETAL: No cyanosis, or edema. BACK: Nontender without obvious deformity. No CVA tenderness. Procedures 01/19/2017 EUS with cyst gastrostomy 01/19/2017 PROCEDURE 1. Exploratory laparotomy. 2. Primary repair of gastric perforation. 3. Abdominal washout. 4. Removal of peripancreatic cyst stent. 5. Resection of peripancreatic (retroperitoneal) cyst. 6. Lysis of adhesions. 01/09/2017 Examination under anesthesia, cystoscopy and direct visual internal urethrotomy of 2 bulbar urethral strictures A/P Problem List: (1) Bladder mass ICD Code: N32.89 Status: Acute (2) Urinary retention ICD Code: R33.9 Status: Acute Assessment and Plan Mr. Purvis is a 61-year-old male with a history of alcohol, tobacco, substance abuse who presented to the emergency department due to suprapubic pain, milky penile discharge and hematuria. CT abdomen pelvis showed severe hydronephrosis and hydroureter with a markedly abnormal heterogeneous thick-walled trabeculated urinary bladder. A mass of 5.3 x 4.6 cm was also suspected. There was also a cystic appearing mass arising from the pancreas with extrapancreatic component which was found to be a large complex cyst. 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 Patient also underwent cystoscopy and direct visualization by urology on 01/09/2017. Due to intra-abdominal free air post procedure on 2016, patient underwent exploratory laparotomy, primary repair of gastric perforation, abdominal washout, and removal of PD pancreatic cyst stent, resection of peripancreatic cyst and lysis of adhesions. - Bilateral hydronephrosis - Bilateral hydroureter - Likely due to bladder outlet obstruction. - Status post cystoscopy, insertion of Cortes catheter. On cystoscopy there was no discrete bladder tumor. - Patient completed a course of ciprofloxacin. - Pancreatic mass - Pneumoperitoneum - Gastric perforation - Status post repair of gastric perforation, exploratory laparoscopy, removal of stent, resection of peripancreatic cyst. - Indeterminant cystic appearing mass arising from pancreas with extrapancreatic component. CEA and CA 199 levels are elevated. - Surgical pathology pending. - Surgery following. - Oxycodone PRN. - Will discuss with Oncology regarding a repeat CT abd/pelvis with contrast now that Creatinine is improved. - Advanced diet to full liquid. - Acute kidney injury - Improved with supportive care. Creatinine 1.67 --> 1.01. Full code. Heparin 5000 units SQ. Rosangela Tucker DO Jan 22, 2017 4:57 pm
[2017-01-23 04:12] VITALS: BP 109/68; PULSE 78; RESP 17; TEMP 98.1; O2SAT 97
[2017-01-23] MEDS: SODIUM CHLOR 0.9% 1000 ML INJ 1,000 ML IV SCH ×2 (04:19→14:19)
[2017-01-23] MEDS: ACETAMINOPHEN/HYDROcodone 325 MG/5 MG TAB PO PRN ×3 (05:57→20:00)
[2017-01-23] MEDS: HEPARIN SODIUM - SQ 10,000 UNITS/ML VIAL SQ SCH ×3 (06:23→20:02)
[2017-01-23 08:00] VITALS: BP 102/65; PULSE 61; RESP 16; TEMP 97.9; O2SAT 94
[2017-01-23] MEDS: PANTOPRAZOLE SOD 20 MG DELAYED RELEASE TAB PO SCH (10:03)
[2017-01-23] MEDS: MAGNESIUM HYDROXIDE SUSP 30 ML CUP PO SCH (10:03)
[2017-01-23] MEDS: SENNOSIDES 8.6 MG TAB PO SCH (10:03)
[2017-01-23] MEDS: DOCUSATE SODIUM 100 MG CAP PO SCH ×2 (10:03→20:03)
[2017-01-23] MEDS: POLYETHYLENE GLYCOL 17 GM PKG PO SCH (10:04)
--- NOTE | 2017-01-23 11:31 | HHI.PR ---
Subjective Remarks Follow up for hydronephrosis, hydroureter, pancreatic mass. Patient is doing better. He complains of mild abdominal pain. He is ambulating in the room well. Sitting in his chair as well. Tolerating diet well. Objective Vitals Vital Signs Date Time Temp Pulse Resp B/P Pulse Ox O2 Delivery O2 Flow Rate FiO2 01/23/17 08:00 97.9 61 16 102/65 94 01/23/17 04:12 98.1 78 17 109/68 97 01/22/17 23:50 98.4 90 18 98/71 95 01/22/17 23:31 18 01/22/17 20:01 96.6 115 18 113/75 97 01/22/17 20:00 105 01/22/17 17:02 01/22/17 16:00 98.0 84 16 131/95 97 01/22/17 16:00 98.0 84 16 131/95 97 01/22/17 14:00 18 01/22/17 12:54 01/22/17 12:00 97.8 63 16 135/74 96 I/O 01/22/17 01/22/17 01/22/17 01/23/17 01/23/17 01/23/17 07:00 15:00 23:00 07:00 15:00 23:00 Intake Total 1080 ml 1920 ml 720 ml 600 ml Output Total 800 ml 750 ml 600 ml 600 ml Balance 280 ml 1170 ml 120 ml 0 ml Intake Oral 240 ml 1220 ml 720 ml 600 ml IV Total 840 ml 700 ml Output Urine Total 800 ml 750 ml 600 ml 600 ml # Bowel Movements 0 1 Result Diagram: 01/21/17 0445 01/21/17 0445 Imaging Last Impressions Abdomen/Pelvis CT 01/19/17 0000 Signed Impressions: Service Date/Time: Thursday, January 19, 2017 18:07 - CONCLUSION: 1. Massive pneumoperitoneum. 2. Stent/catheter noted within the left upper quadrant. 3. Soft tissue thickening in the pelvis with removal of previous identified masses. DR Lara notified. Viktor Locke MD Abdomen X-Ray 01/19/17 0000 Signed Impressions: Service Date/Time: Thursday, January 19, 2017 16:40 - CONCLUSION: Stent identified within the left upper quadrant. CT of the abdomen would be more sensitive to determine the exact position of this stent. Tyrone Pinon MD Abdomen MRI 01/11/17 0000 Signed Impressions: Service Date/Time: Wednesday, January 11, 2017 18:39 - CONCLUSION: 1. Significant hydronephrosis bilaterally. 2. Cystic mass in the lesser sac does not demonstrate any abnormal enhancement and differential considerations includes benign cystic lesions in addition to cystic neoplasm such as a cystadenoma/cystadenocarcinoma or even IPMN. Love Hernandez MD Chest X-Ray 01/09/17 0000 Signed Impressions: Service Date/Time: Monday, January 09, 2017 05:30 - CONCLUSION: No acute disease. Bienvenido Shaikh MD Objective Remarks GENERAL: Alert, NAD. SKIN: Warm and dry. HEAD: Normocephalic. EYES: No scleral icterus. No injection or drainage. NECK: Supple, trachea midline. No JVD or lymphadenopathy. CARDIOVASCULAR: Regular rate and rhythm without murmurs, gallops, or rubs. RESPIRATORY: Breath sounds equal bilaterally. No accessory muscle use. GASTROINTESTINAL: Abdomen distended, firm, mildly tender to palpation. MUSCULOSKELETAL: No cyanosis, or edema. BACK: Nontender without obvious deformity. No CVA tenderness. Procedures 01/19/2017 EUS with cyst gastrostomy 01/19/2017 PROCEDURE 1. Exploratory laparotomy. 2. Primary repair of gastric perforation. 3. Abdominal washout. 4. Removal of peripancreatic cyst stent. 5. Resection of peripancreatic (retroperitoneal) cyst. 6. Lysis of adhesions. 01/09/2017 Examination under anesthesia, cystoscopy and direct visual internal urethrotomy of 2 bulbar urethral strictures A/P Problem List: (1) Bladder mass ICD Code: N32.89 Status: Acute (2) Urinary retention ICD Code: R33.9 Status: Acute Assessment and Plan Mr. Purvis is a 61-year-old male with a history of alcohol, tobacco, substance abuse who presented to the emergency department due to suprapubic pain, milky penile discharge and hematuria. CT abdomen pelvis showed severe hydronephrosis and hydroureter with a markedly abnormal heterogeneous thick-walled trabeculated urinary bladder. A mass of 5.3 x 4.6 cm was also suspected. There was also a cystic appearing mass arising from the pancreas with extrapancreatic component which was found to be a large complex cyst. 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 Patient also underwent cystoscopy and direct visualization by urology on 01/09/2017. Due to intra-abdominal free air post procedure on 2016, patient underwent exploratory laparotomy, primary repair of gastric perforation, abdominal washout, and removal of PD pancreatic cyst stent, resection of peripancreatic cyst and lysis of adhesions. - Bilateral hydronephrosis - Bilateral hydroureter - Likely due to bladder outlet obstruction. - Status post cystoscopy, insertion of Cortes catheter. On cystoscopy there was no discrete bladder tumor. - Patient completed a course of ciprofloxacin. - Pancreatic mass - Pneumoperitoneum - Gastric perforation - Status post repair of gastric perforation, exploratory laparoscopy, removal of stent, resection of peripancreatic cyst. - Indeterminant cystic appearing mass arising from pancreas with extrapancreatic component. CEA and CA 199 levels are elevated. - Surgical pathology pending. - Surgery following. - Oxycodone PRN. - Will discuss with Oncology regarding a repeat CT abd/pelvis with contrast now that Creatinine is improved. - Advanced diet to regular diet. - Encouraged patient to work with PT and ambulate more. - Acute kidney injury - Improved with supportive care. Creatinine 1.67 --> 1.01. Full code. Heparin 5000 units SQ. Discharge plan: Difficult placement. Rosangela Tucker DO Jan 23, 2017 11:31 am
--- NOTE | 2017-01-23 11:45 | HHI.PR ---
Subjective Subjective Notes Resting in bed Does not like the options on the full liquids diet; would like to try something else Objective Vitals/I&O Vital Signs Date Time Temp Pulse Resp B/P Pulse Ox O2 Delivery O2 Flow Rate FiO2 01/23/17 08:00 97.9 61 16 102/65 94 01/19/17 21:00 Nasal Cannula 3 Cardiovascular: Regular Lungs: Clear Abdomen: Other (midline incision with GAYLE in place; good seal; non tender non distended ) Extremities: No edema A/P Assessment and Plan 61 year old male s/p EUS with cyst gastrostomy; after procedure developed severe abdominal pain; CT abd/pelvis showed free air; patient taken to OR POD3 ex lap; repair of gastric perforation; abdominal washout; removal of stent; resection of peripancreatic (retroperitoneal) cyst and lysis of adhesions -Transition to PO pain meds -DC IVF -Advance to soft diet -OOB to chair as tolerated -IS -Dr. Alvarado went over pathology ---benign cyst Attending Statement The exam, history, and the medical decision-making described in the above note were completed with the assistance of the mid-level provider. I reviewed and agree with the findings presented. I attest that I had a [id number] encounter with the patient on the same day, and personally performed and documented my assessment and findings in the medical record. doing well, advance diet, OOB, DCD planning María Adame Jan 23, 2017 11:45 Varghese Alvarado MD Jan 23, 2017 11:50
[2017-01-23 12:00] VITALS: BP 103/77; PULSE 78; RESP 18; TEMP 97.7; O2SAT 96
[2017-01-23 16:00] VITALS: BP 111/67; PULSE 55; RESP 17; TEMP 97.3; O2SAT 93
[2017-01-23] MEDS: SODIUM CHLORIDE 0.9% FLUSH 10 ML FLUSH IV FLUSH SCH ×2 (16:08→20:03)
[2017-01-23 19:50] VITALS: PULSE 66
[2017-01-23 20:00] VITALS: BP 105/71; PULSE 70; RESP 16; TEMP 97.8; O2SAT 96
[2017-01-24] VITALS: BP 100/66; PULSE 60; RESP 16; TEMP 98.4; O2SAT 100
[2017-01-24 04:00] VITALS: BP 103/68; PULSE 60; RESP 16; TEMP 98.5; O2SAT 95
[2017-01-24] MEDS: ACETAMINOPHEN/HYDROcodone 325 MG/5 MG TAB PO PRN ×4 (05:27→20:58)
[2017-01-24] MEDS: HEPARIN SODIUM - SQ 10,000 UNITS/ML VIAL SQ SCH ×3 (05:27→21:01)
[2017-01-24 08:00] VITALS: BP 92/62; PULSE 65; RESP 20; TEMP 97.3; O2SAT 95
[2017-01-24] MEDS: POLYETHYLENE GLYCOL 17 GM PKG PO SCH (09:14)
[2017-01-24] MEDS: PANTOPRAZOLE SOD 20 MG DELAYED RELEASE TAB PO SCH (09:14)
[2017-01-24] MEDS: MAGNESIUM HYDROXIDE SUSP 30 ML CUP PO SCH (09:14)
[2017-01-24] MEDS: SENNOSIDES 8.6 MG TAB PO SCH (09:14)
[2017-01-24] MEDS: DOCUSATE SODIUM 100 MG CAP PO SCH ×2 (09:14→20:57)
--- NOTE | 2017-01-24 09:56 | HHI.PR ---
Subjective Remarks Follow up for hydronephrosis, hydroureter, pancreatic mass. Mr. Purvis is doing well. Still has some pain when he coughs. No fever, chills. Objective Vitals Vital Signs Date Time Temp Pulse Resp B/P Pulse Ox O2 Delivery O2 Flow Rate FiO2 01/24/17 08:00 97.3 65 20 92/62 95 01/24/17 04:00 98.5 60 16 103/68 95 01/24/17 00:00 98.4 60 16 100/66 100 01/23/17 21:38 20 01/23/17 20:00 97.8 70 16 105/71 96 01/23/17 19:50 66 01/23/17 16:00 97.3 55 17 111/67 93 01/23/17 12:00 97.7 78 18 103/77 96 I/O 01/23/17 01/23/17 01/23/17 01/24/17 01/24/17 01/24/17 07:00 15:00 23:00 07:00 15:00 23:00 Intake Total 600 ml 960 ml 860 ml 240 ml 120 ml Output Total 600 ml 700 ml 850 ml 600 ml Balance 0 ml 260 ml 10 ml -360 ml 120 ml Intake Oral 600 ml 960 ml 860 ml 240 ml 120 ml Output Urine Total 600 ml 700 ml 850 ml 600 ml # Bowel Movements 0 0 0 Result Diagram: 01/21/17 0445 01/21/17 0445 Imaging Last Impressions Chest X-Ray 01/24/17 0000 Signed Impressions: Service Date/Time: Tuesday, January 24, 2017 10:08 - CONCLUSION: Negative for acute process. Neri Gaines MD FACR Abdomen/Pelvis CT 01/19/17 0000 Signed Impressions: Service Date/Time: Thursday, January 19, 2017 18:07 - CONCLUSION: 1. Massive pneumoperitoneum. 2. Stent/catheter noted within the left upper quadrant. 3. Soft tissue thickening in the pelvis with removal of previous identified masses. DR Lara notified. Viktor Locke MD Abdomen X-Ray 01/19/17 0000 Signed Impressions: Service Date/Time: Thursday, January 19, 2017 16:40 - CONCLUSION: Stent identified within the left upper quadrant. CT of the abdomen would be more sensitive to determine the exact position of this stent. Tyrone Pinon MD Abdomen MRI 01/11/17 0000 Signed Impressions: Service Date/Time: Wednesday, January 11, 2017 18:39 - CONCLUSION: 1. Significant hydronephrosis bilaterally. 2. Cystic mass in the lesser sac does not demonstrate any abnormal enhancement and differential considerations includes benign cystic lesions in addition to cystic neoplasm such as a cystadenoma/cystadenocarcinoma or even IPMN. Love Hernandez MD Objective Remarks GENERAL: Alert, NAD. SKIN: Warm and dry. HEAD: Normocephalic. EYES: No scleral icterus. No injection or drainage. NECK: Supple, trachea midline. No JVD or lymphadenopathy. CARDIOVASCULAR: Regular rate and rhythm without murmurs, gallops, or rubs. RESPIRATORY: Breath sounds equal bilaterally. No accessory muscle use. GASTROINTESTINAL: Abdomen distended, firm, mildly tender to palpation. MUSCULOSKELETAL: No cyanosis, or edema. BACK: Nontender without obvious deformity. No CVA tenderness. Procedures 01/19/2017 EUS with cyst gastrostomy 01/19/2017 PROCEDURE 1. Exploratory laparotomy. 2. Primary repair of gastric perforation. 3. Abdominal washout. 4. Removal of peripancreatic cyst stent. 5. Resection of peripancreatic (retroperitoneal) cyst. 6. Lysis of adhesions. 01/09/2017 Examination under anesthesia, cystoscopy and direct visual internal urethrotomy of 2 bulbar urethral strictures A/P Problem List: (1) Bladder mass ICD Code: N32.89 Status: Acute (2) Urinary retention ICD Code: R33.9 Status: Acute Assessment and Plan Mr. Purvis is a 61-year-old male with a history of alcohol, tobacco, substance abuse who presented to the emergency department due to suprapubic pain, milky penile discharge and hematuria. CT abdomen pelvis showed severe hydronephrosis and hydroureter with a markedly abnormal heterogeneous thick-walled trabeculated urinary bladder. A mass of 5.3 x 4.6 cm was also suspected. There was also a cystic appearing mass arising from the pancreas with extrapancreatic component which was found to be a large complex cyst. 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 Patient also underwent cystoscopy and direct visualization by urology on 01/09/2017. Due to intra-abdominal free air post procedure on 2016, patient underwent exploratory laparotomy, primary repair of gastric perforation, abdominal washout, and removal of PD pancreatic cyst stent, resection of peripancreatic cyst and lysis of adhesions. - Bilateral hydronephrosis - Bilateral hydroureter - Likely due to bladder outlet obstruction. - Status post cystoscopy, insertion of Cortes catheter. On cystoscopy there was no discrete bladder tumor. - Patient completed a course of ciprofloxacin. - Urology will likely discontinue Cortes catheter early next week. - Pancreatic mass - Pneumoperitoneum - Gastric perforation - Status post repair of gastric perforation, exploratory laparoscopy, removal of stent, resection of peripancreatic cyst. - Indeterminant cystic appearing mass arising from pancreas with extrapancreatic component. CEA and CA 199 levels are elevated. - Surgical pathology pending. - Surgery following. - Oxycodone PRN. - Will discuss with Oncology regarding a repeat CT abd/pelvis with contrast now that Creatinine is improved. - Advanced diet to regular diet. - Encouraged patient to work with PT and ambulate more. - Acute kidney injury - Improved with supportive care. Creatinine 1.67 --> 1.01. Full code. Heparin 5000 units SQ. Rosangela Tucker DO Jan 24, 2017 09:56
--- NOTE | 2017-01-24 10:18 | RADRPT ---
EXAM DATE/TIME: 01/24/2017 10:08 [facility] COMPARISON: CHEST SINGLE AP, January 09, 2017, 5:30. INDICATIONS : Cough. MEDICAL HISTORY : None. SURGICAL HISTORY : None. ENCOUNTER: Initial ACUITY: 1 day PAIN SCORE: 0/10 LOCATION: Bilateral chest FINDINGS: A single view of the chest demonstrates the lungs to be symmetrically aerated without evidence of mas s, infiltrate or effusion. There is minimal elevation of the left hemidiaphragm. The cardiomediasti nal contours are unremarkable. Osseous structures are intact. CONCLUSION: Negative for acute process. Neri Gaines MD FACR on January 24, 2017 at 10:15 Board Certified Radiologist. This report was verified electronically.
[2017-01-24 12:00] VITALS: BP 98/68; PULSE 65; RESP 20; TEMP 98; O2SAT 95
[2017-01-24 16:00] VITALS: BP 97/64; PULSE 70; RESP 20; TEMP 97; O2SAT 96
--- NOTE | 2017-01-24 19:53 | HHI.PR ---
Subjective Subjective Notes feels better, eating, +BM Objective Vitals/I&O Vital Signs Date Time Temp Pulse Resp B/P Pulse Ox O2 Delivery O2 Flow Rate FiO2 01/24/17 16:00 97.0 70 20 97/64 96 Cardiovascular: Regular Lungs: Clear Abdomen: Non-distended, Post-op tenderness Extremities: No edema, Perfused Narrative Exam incision c/d/i A/P Assessment and Plan 61 year old male s/p EUS with cyst gastrostomy; after procedure developed severe abdominal pain; CT abd/pelvis showed free air; patient taken to OR POD3 ex lap; repair of gastric perforation; abdominal washout; removal of stent; resection of peripancreatic (retroperitoneal) cyst and lysis of adhesions - on PO pain meds -Advance to soft diet -OOB to chair as tolerated - dc when cleared by urology Varghese Alvarado MD Jan 24, 2017 19:53
[2017-01-24 20:00] VITALS: BP 141/90; PULSE 120; RESP 20; TEMP 98.6; O2SAT 96
[2017-01-24] MEDS: SODIUM CHLORIDE 0.9% FLUSH 10 ML FLUSH IV FLUSH SCH ×2 (20:59→21:49)
[2017-01-25] MEDS: HEPARIN SODIUM - SQ 10,000 UNITS/ML VIAL SQ SCH ×3 (06:21→21:45)
[2017-01-25] MEDS: ACETAMINOPHEN/HYDROcodone 325 MG/5 MG TAB PO PRN ×2 (06:22→14:14)
[2017-01-25 08:00] VITALS: BP 106/71; PULSE 65; RESP 20; TEMP 98.3; O2SAT 95
[2017-01-25] MEDS: SODIUM CHLORIDE 0.9% FLUSH 10 ML FLUSH IV FLUSH SCH ×2 (09:27→20:31)
[2017-01-25] MEDS: DOCUSATE SODIUM 100 MG CAP PO SCH ×2 (09:27→20:31)
[2017-01-25] MEDS: SENNOSIDES 8.6 MG TAB PO SCH (09:27)
[2017-01-25] MEDS: PANTOPRAZOLE SOD 20 MG DELAYED RELEASE TAB PO SCH (09:27)
[2017-01-25] MEDS: POLYETHYLENE GLYCOL 17 GM PKG PO SCH (09:27)
[2017-01-25] MEDS: MAGNESIUM HYDROXIDE SUSP 30 ML CUP PO SCH (09:27)
[2017-01-25 12:00] VITALS: BP 91/63; PULSE 67; RESP 19; TEMP 97.8; O2SAT 95
--- NOTE | 2017-01-25 14:04 | HHI.PR ---
Subjective Remarks Follow up for hydronephrosis, hydroureter, pancreatic mass. Patient is doing well. No acute concerns. Objective Vitals Vital Signs Date Time Temp Pulse Resp B/P Pulse Ox O2 Delivery O2 Flow Rate FiO2 01/25/17 12:00 97.8 67 19 91/63 95 01/25/17 08:00 98.3 65 20 106/71 95 01/24/17 20:00 98.6 120 20 141/90 96 01/24/17 16:00 97.0 70 20 97/64 96 I/O 01/24/17 01/24/17 01/24/17 01/25/17 01/25/17 01/25/17 07:00 15:00 23:00 07:00 15:00 23:00 Intake Total 240 ml 880 ml 240 ml 120 ml Output Total 600 ml 800 ml 600 ml 1050 ml Balance -360 ml 80 ml -360 ml -1050 ml 120 ml Intake Oral 240 ml 880 ml 240 ml 120 ml Output Urine Total 600 ml 800 ml 600 ml 1050 ml # Bowel Movements 0 0 0 Result Diagram: 01/21/17 0445 01/21/17 0445 Imaging Last Impressions Chest X-Ray 01/24/17 0000 Signed Impressions: Service Date/Time: Tuesday, January 24, 2017 10:08 - CONCLUSION: Negative for acute process. Neri Gaines MD FACR Abdomen/Pelvis CT 01/19/17 0000 Signed Impressions: Service Date/Time: Thursday, January 19, 2017 18:07 - CONCLUSION: 1. Massive pneumoperitoneum. 2. Stent/catheter noted within the left upper quadrant. 3. Soft tissue thickening in the pelvis with removal of previous identified masses. DR Lara notified. Viktor Locke MD Abdomen X-Ray 01/19/17 0000 Signed Impressions: Service Date/Time: Thursday, January 19, 2017 16:40 - CONCLUSION: Stent identified within the left upper quadrant. CT of the abdomen would be more sensitive to determine the exact position of this stent. Tyrone Pinon MD Abdomen MRI 01/11/17 0000 Signed Impressions: Service Date/Time: Wednesday, January 11, 2017 18:39 - CONCLUSION: 1. Significant hydronephrosis bilaterally. 2. Cystic mass in the lesser sac does not demonstrate any abnormal enhancement and differential considerations includes benign cystic lesions in addition to cystic neoplasm such as a cystadenoma/cystadenocarcinoma or even IPMN. Love Hernandez MD Objective Remarks GENERAL: Alert, NAD. SKIN: Warm and dry. HEAD: Normocephalic. EYES: No scleral icterus. No injection or drainage. NECK: Supple, trachea midline. No JVD or lymphadenopathy. CARDIOVASCULAR: Regular rate and rhythm without murmurs, gallops, or rubs. RESPIRATORY: Breath sounds equal bilaterally. No accessory muscle use. GASTROINTESTINAL: Abdomen distended, firm, mildly tender to palpation. MUSCULOSKELETAL: No cyanosis, or edema. BACK: Nontender without obvious deformity. No CVA tenderness. Procedures 01/19/2017 EUS with cyst gastrostomy 01/19/2017 PROCEDURE 1. Exploratory laparotomy. 2. Primary repair of gastric perforation. 3. Abdominal washout. 4. Removal of peripancreatic cyst stent. 5. Resection of peripancreatic (retroperitoneal) cyst. 6. Lysis of adhesions. 01/09/2017 Examination under anesthesia, cystoscopy and direct visual internal urethrotomy of 2 bulbar urethral strictures A/P Problem List: (1) Bladder mass ICD Code: N32.89 Status: Acute (2) Urinary retention ICD Code: R33.9 Status: Acute Assessment and Plan Mr. Purvis is a 61-year-old male with a history of alcohol, tobacco, substance abuse who presented to the emergency department due to suprapubic pain, milky penile discharge and hematuria. CT abdomen pelvis showed severe hydronephrosis and hydroureter with a markedly abnormal heterogeneous thick-walled trabeculated urinary bladder. A mass of 5.3 x 4.6 cm was also suspected. There was also a cystic appearing mass arising from the pancreas with extrapancreatic component which was found to be a large complex cyst. 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 Patient also underwent cystoscopy and direct visualization by urology on 01/09/2017. Due to intra-abdominal free air post procedure on 2016, patient underwent exploratory laparotomy, primary repair of gastric perforation, abdominal washout, and removal of PD pancreatic cyst stent, resection of peripancreatic cyst and lysis of adhesions. - Bilateral hydronephrosis - Bilateral hydroureter - Likely due to bladder outlet obstruction. - Status post cystoscopy, insertion of Cortes catheter. On cystoscopy there was no discrete bladder tumor. - Patient completed a course of ciprofloxacin. - Urology will likely discontinue Cortes catheter early next week. - Pancreatic mass - Pneumoperitoneum - Gastric perforation - Status post repair of gastric perforation, exploratory laparoscopy, removal of stent, resection of peripancreatic cyst. - Indeterminant cystic appearing mass arising from pancreas with extrapancreatic component. CEA and CA 199 levels are elevated. - Surgical pathology pending. - Surgery following. - Oxycodone PRN. - Will discuss with Oncology regarding a repeat CT abd/pelvis with contrast now that Creatinine is improved. - Advanced diet to regular diet. - Encouraged patient to work with PT and ambulate more. - Acute kidney injury - Improved with supportive care. Creatinine 1.67 --> 1.01. Full code. Heparin 5000 units SQ. Discharge plan: Will discuss with CM regarding placement options once Urology clears. Rosangela Tucker DO Jan 25, 2017 2:04 pm
[2017-01-25 16:00] VITALS: BP 95/65; PULSE 75; RESP 20; TEMP 98.4; O2SAT 97
[2017-01-25 20:00] VITALS: BP 106/73; PULSE 75; RESP 18; TEMP 96.5; O2SAT 94
[2017-01-25] MEDS ORDERED: BISACODYL 10 MG SUPP RECTAL ONE (21:15)
[2017-01-26] VITALS: BP 130/77; PULSE 107; RESP 18; TEMP 97.5; O2SAT 98
[2017-01-26] MEDS: HEPARIN SODIUM - SQ 10,000 UNITS/ML VIAL SQ SCH ×3 (06:26→20:58)
[2017-01-26 08:00] VITALS: BP 103/66; PULSE 63; RESP 16; TEMP 96; O2SAT 96
[2017-01-26] MEDS: DOCUSATE SODIUM 100 MG CAP PO SCH ×2 (09:38→20:58)
[2017-01-26] MEDS: SODIUM CHLORIDE 0.9% FLUSH 10 ML FLUSH IV FLUSH SCH ×2 (09:39→20:57)
[2017-01-26] MEDS: SENNOSIDES 8.6 MG TAB PO SCH (09:39)
[2017-01-26] MEDS: PANTOPRAZOLE SOD 20 MG DELAYED RELEASE TAB PO SCH (09:39)
[2017-01-26] MEDS: POLYETHYLENE GLYCOL 17 GM PKG PO SCH (09:39)
[2017-01-26] MEDS: MAGNESIUM HYDROXIDE SUSP 30 ML CUP PO SCH (09:39)
[2017-01-26 12:00] VITALS: BP 98/70; PULSE 75; RESP 16; TEMP 96.5; O2SAT 95
[2017-01-26] MEDS ORDERED: TAMSULOSIN HCL 0.4 MG CAP PO ONE (12:45)
--- NOTE | 2017-01-26 13:42 | HHI.PR ---
Subjective Remarks Follow up for hydronephrosis, hydroureter, pancreatic mass. Cortes cath was discontinued today around 6:30AM. However, at around 12:45PM, patient was still not able to start voiding on his own. Bladder scan showed fluid level above 400. Urology recommended waiting for an hour or so before considering Cortes cath again. Patient is somewhat upset. However, denies any chest pain, shortness of breath, fever, chills. Objective Vitals Vital Signs Date Time Temp Pulse Resp B/P Pulse Ox O2 Delivery O2 Flow Rate FiO2 01/26/17 12:00 96.5 75 16 98/70 95 01/26/17 08:00 96.0 63 16 103/66 96 01/26/17 00:00 97.5 107 18 130/77 98 01/25/17 20:00 96.5 75 18 106/73 94 01/25/17 16:00 98.4 75 20 95/65 97 I/O 01/25/17 01/25/17 01/25/17 01/26/17 01/26/17 01/26/17 07:00 15:00 23:00 07:00 15:00 23:00 Intake Total 600 ml 480 ml Output Total 1050 ml 800 ml 1000 ml 975 ml Balance -1050 ml -200 ml -1000 ml -495 ml Intake Oral 600 ml 480 ml Output Urine Total 1050 ml 800 ml 1000 ml 975 ml Bladder Scan Volume Amount 425 ml # Bowel Movements 0 1 Imaging Last Impressions Chest X-Ray 01/24/17 0000 Signed Impressions: Service Date/Time: Tuesday, January 24, 2017 10:08 - CONCLUSION: Negative for acute process. Neri Gaines MD FACR Abdomen/Pelvis CT 01/19/17 0000 Signed Impressions: Service Date/Time: Thursday, January 19, 2017 18:07 - CONCLUSION: 1. Massive pneumoperitoneum. 2. Stent/catheter noted within the left upper quadrant. 3. Soft tissue thickening in the pelvis with removal of previous identified masses. DR Lara notified. Viktor Locke MD Abdomen X-Ray 01/19/17 0000 Signed Impressions: Service Date/Time: Thursday, January 19, 2017 16:40 - CONCLUSION: Stent identified within the left upper quadrant. CT of the abdomen would be more sensitive to determine the exact position of this stent. Tyrone Pinon MD Abdomen MRI 01/11/17 0000 Signed Impressions: Service Date/Time: Wednesday, January 11, 2017 18:39 - CONCLUSION: 1. Significant hydronephrosis bilaterally. 2. Cystic mass in the lesser sac does not demonstrate any abnormal enhancement and differential considerations includes benign cystic lesions in addition to cystic neoplasm such as a cystadenoma/cystadenocarcinoma or even IPMN. Love Hernandez MD Objective Remarks GENERAL: Alert, NAD. SKIN: Warm and dry. HEAD: Normocephalic. EYES: No scleral icterus. No injection or drainage. NECK: Supple, trachea midline. No JVD or lymphadenopathy. CARDIOVASCULAR: Regular rate and rhythm without murmurs, gallops, or rubs. RESPIRATORY: Breath sounds equal bilaterally. No accessory muscle use. GASTROINTESTINAL: Abdomen distended, firm, mildly tender to palpation. MUSCULOSKELETAL: No cyanosis, or edema. BACK: Nontender without obvious deformity. No CVA tenderness. Procedures 01/19/2017 EUS with cyst gastrostomy 01/19/2017 PROCEDURE 1. Exploratory laparotomy. 2. Primary repair of gastric perforation. 3. Abdominal washout. 4. Removal of peripancreatic cyst stent. 5. Resection of peripancreatic (retroperitoneal) cyst. 6. Lysis of adhesions. 01/09/2017 Examination under anesthesia, cystoscopy and direct visual internal urethrotomy of 2 bulbar urethral strictures A/P Problem List: (1) Bladder mass ICD Code: N32.89 Status: Acute (2) Urinary retention ICD Code: R33.9 Status: Acute Assessment and Plan Mr. Purvis is a 61-year-old male with a history of alcohol, tobacco, substance abuse who presented to the emergency department due to suprapubic pain, milky penile discharge and hematuria. CT abdomen pelvis showed severe hydronephrosis and hydroureter with a markedly abnormal heterogeneous thick-walled trabeculated urinary bladder. A mass of 5.3 x 4.6 cm was also suspected. There was also a cystic appearing mass arising from the pancreas with extrapancreatic component which was found to be a large complex cyst. 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 Patient also underwent cystoscopy and direct visualization by urology on 01/09/2017. Due to intra-abdominal free air post procedure on 2016, patient underwent exploratory laparotomy, primary repair of gastric perforation, abdominal washout, and removal of PD pancreatic cyst stent, resection of peripancreatic cyst and lysis of adhesions. - Bilateral hydronephrosis - Bilateral hydroureter - Likely due to bladder outlet obstruction. - Status post cystoscopy, insertion of Cortes catheter. On cystoscopy there was no discrete bladder tumor. - Patient completed a course of ciprofloxacin. - Unable to void after Cortes was discontinued on 01/26/2017. - Start Flomax. If unable to void, re-insertion of Cortes would be necessary. - Pancreatic mass - Pneumoperitoneum - Gastric perforation - Status post repair of gastric perforation, exploratory laparoscopy, removal of stent, resection of peripancreatic cyst. - Indeterminant cystic appearing mass arising from pancreas with extrapancreatic component. CEA and CA 199 levels are elevated. - Surgical pathology pending. - Surgery following. - Oxycodone PRN. - Will discuss with Oncology regarding a repeat CT abd/pelvis with contrast now that Creatinine is improved. - Advanced diet to regular diet. - Encouraged patient to work with PT and ambulate more. - Acute kidney injury - Improved with supportive care. Creatinine 1.67 --> 1.01. Full code. Heparin 5000 units SQ. Rosangela Tucker DO Jan 26, 2017 13:41
--- NOTE | 2017-01-26 14:31 | HHI.PR ---
Subjective Subjective Notes Resting in bed Is not able to void Objective Vitals/I&O Vital Signs Date Time Temp Pulse Resp B/P Pulse Ox O2 Delivery O2 Flow Rate FiO2 01/26/17 12:00 96.5 75 16 98/70 95 Cardiovascular: Regular Lungs: Clear Abdomen: Other (midline incision; GAYLE removed; colt c/d/i; abdomen soft non tender ) Extremities: No edema A/P Assessment and Plan 61 year old male s/p EUS with cyst gastrostomy; after procedure developed severe abdominal pain; CT abd/pelvis showed free air; patient taken to OR s/p ex lap; repair of gastric perforation; abdominal washout; removal of stent; resection of peripancreatic (retroperitoneal) cyst and lysis of adhesions -Pain controlled using oral pain meds -Tolerating regular diet -OOB to chair as tolerated -IS -Dr. Alvarado went over pathology ---benign cyst -GS clear for DC; follow up 1 week for staple removal María Adame Jan 26, 2017 14:31
[2017-01-26 16:00] VITALS: BP 102/68; PULSE 74; RESP 18; TEMP 97; O2SAT 95
[2017-01-26 20:37] VITALS: BP 112/76; PULSE 84; RESP 18; TEMP 97.3; O2SAT 95
[2017-01-27] VITALS: BP 98/64; PULSE 71; RESP 16; TEMP 97.2; O2SAT 97
[2017-01-27] MEDS: HEPARIN SODIUM - SQ 10,000 UNITS/ML VIAL SQ SCH (05:20)
[2017-01-27 08:00] VITALS: BP 110/77; PULSE 93; RESP 17; TEMP 98.2; O2SAT 92
[2017-01-27] MEDS: PANTOPRAZOLE SOD 20 MG DELAYED RELEASE TAB PO SCH (08:53)
[2017-01-27] MEDS: MAGNESIUM HYDROXIDE SUSP 30 ML CUP PO SCH (08:53)
[2017-01-27] MEDS: SODIUM CHLORIDE 0.9% FLUSH 10 ML FLUSH IV FLUSH SCH (08:53)
[2017-01-27] MEDS: SENNOSIDES 8.6 MG TAB PO SCH (08:53)
[2017-01-27] MEDS: POLYETHYLENE GLYCOL 17 GM PKG PO SCH (08:53)
[2017-01-27] MEDS: DOCUSATE SODIUM 100 MG CAP PO SCH (08:53)
[2017-01-27] MEDS ORDERED: TAMSULOSIN HCL 0.4 MG CAP PO SCH (09:00)
[2017-01-27] MEDS ORDERED: DOCU1CAP39 PO (10:04)
[2017-01-27] MEDS ORDERED: TAMS5CAP PO (10:04)
[2017-01-27] MEDS ORDERED: PANT20 PO (10:04)
--- NOTE | 2017-01-27 10:06 | HHI.DS ---
Discharge Summary Admission Date Jan 09, 2017 at 4:51 am Discharge Date: Jan 27, 2017 Admitting Diagnosis bladder mass, urinary retention (1) Bladder mass ICD Code: N32.89 Diagnosis: Principal (2) Urinary retention ICD Code: R33.9 (3) Free intraperitoneal air ICD Code: K66.8 Diagnosis: Principal (4) Gastric perforation ICD Code: K25.5 Diagnosis: Principal Procedures 01/19/2017 EUS with cyst gastrostomy 01/19/2017 PROCEDURE 1. Exploratory laparotomy. 2. Primary repair of gastric perforation. 3. Abdominal washout. 4. Removal of peripancreatic cyst stent. 5. Resection of peripancreatic (retroperitoneal) cyst. 6. Lysis of adhesions. 01/09/2017 Examination under anesthesia, cystoscopy and direct visual internal urethrotomy of 2 bulbar urethral strictures Brief History - From Admission Written by Lexi Otoole, acting as scribe for Dr. Castellanos on 01/09/17 at 05:06. Patient reports severe suprapubic pain that has been present for one month which progressively worsened. He reports milky discharge from penis and hematuria. He has also been experiencing shortness of breath, intermittent dizziness, he has lost 50 lbs in the past 3 - 4 months with loss of appetite, and odynophagia. Denies n/v/diarrhea, black or red stool. Imaging Last Impressions Chest X-Ray 01/24/17 0000 Signed Impressions: Service Date/Time: Tuesday, January 24, 2017 10:08 - CONCLUSION: Negative for acute process. Neri Gaines MD FACR Abdomen/Pelvis CT 01/19/17 0000 Signed Impressions: Service Date/Time: Thursday, January 19, 2017 18:07 - CONCLUSION: 1. Massive pneumoperitoneum. 2. Stent/catheter noted within the left upper quadrant. 3. Soft tissue thickening in the pelvis with removal of previous identified masses. DR Lara notified. Viktor Locke MD Abdomen X-Ray 01/19/17 0000 Signed Impressions: Service Date/Time: Thursday, January 19, 2017 16:40 - CONCLUSION: Stent identified within the left upper quadrant. CT of the abdomen would be more sensitive to determine the exact position of this stent. Tyrone Pinon MD Abdomen MRI 01/11/17 0000 Signed Impressions: Service Date/Time: Wednesday, January 11, 2017 18:39 - CONCLUSION: 1. Significant hydronephrosis bilaterally. 2. Cystic mass in the lesser sac does not demonstrate any abnormal enhancement and differential considerations includes benign cystic lesions in addition to cystic neoplasm such as a cystadenoma/cystadenocarcinoma or even IPMN. Love Hernandez MD PE at Discharge GENERAL: Alert, NAD. SKIN: Warm and dry. HEAD: Normocephalic. EYES: No scleral icterus. No injection or drainage. NECK: Supple, trachea midline. No JVD or lymphadenopathy. CARDIOVASCULAR: Regular rate and rhythm without murmurs, gallops, or rubs. RESPIRATORY: Breath sounds equal bilaterally. No accessory muscle use. GASTROINTESTINAL: Abdomen distended, firm, mildly tender to palpation. MUSCULOSKELETAL: No cyanosis, or edema. BACK: Nontender without obvious deformity. No CVA tenderness. Pt update on day of discharge Patient is doing well. Has valderrama cath. Urology will follow him next week. Hospital Course Mr. Purvis is a 61-year-old male with a history of alcohol, tobacco, substance abuse who presented to the emergency department due to suprapubic pain, milky penile discharge and hematuria. CT abdomen pelvis showed severe hydronephrosis and hydroureter with a markedly abnormal heterogeneous thick-walled trabeculated urinary bladder. A mass of 5.3 x 4.6 cm was also suspected. There was also a cystic appearing mass arising from the pancreas with extrapancreatic component which was found to be a large complex cyst. 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 Patient also underwent cystoscopy and direct visualization by urology on 01/09/2017. Due to intra-abdominal free air post procedure on 2016, patient underwent exploratory laparotomy, primary repair of gastric perforation, abdominal washout, and removal of PD pancreatic cyst stent, resection of peripancreatic cyst and lysis of adhesions. - Bilateral hydronephrosis - Bilateral hydroureter - Likely due to bladder outlet obstruction. - Status post cystoscopy, insertion of Valderrama catheter. On cystoscopy there was no discrete bladder tumor. - Patient completed a course of ciprofloxacin. - Unable to void after Valderrama was discontinued on 01/26/2017. - Continue Flomax. Valderrama was re-inserted. Urology recommended outpatient follow up. - Pancreatic mass - Pneumoperitoneum - Gastric perforation - Status post repair of gastric perforation, exploratory laparoscopy, removal of stent, resection of peripancreatic cyst. - Indeterminant cystic appearing mass arising from pancreas with extrapancreatic component. CEA and CA 199 levels are elevated. - Surgical pathology pending. - Surgery following. - Oxycodone PRN. - Advanced diet to regular diet. - Encouraged patient to work with PT and ambulate more. - Acute kidney injury - Improved with supportive care. Creatinine 1.67 --> 1.01. Full code. Heparin 5000 units SQ. Pt Condition on Discharge: Stable Discharge Disposition: Discharge Home Discharge Time: > 30 minutes Discharge Instructions DIET: Follow Instructions for: Heart Healthy Diet Activities you can perform: Regular-No Restrictions Follow up Referrals: PCP Follow-up - 2-[address] DARRELL PEREZ Surgical - 1 Week with Varghese Alvarado MD Urology - 1 Week with Eduardo Carrera MD New Medications: Lactobacillus Acidophilus (Probiotic) 1 Cap Cap 1 CAP PO TIDAC Nutritional Supplement #40 Ref 0 CAP Docusate Sodium (Dok) 100 Mg Cap 100 MG PO BID PRN Constipation #20 CAP Oxycodone (Oxycodone) 5 Mg Tab 5 MG PO Q6HR DO NOT USE THIS MEDICINE IF YOU WILL DRIVE A CAR OR USE A MACHINE, ONLY USE IT WHEN RESTING AT HOME. PRN PAIN #12 Ref 0 TAB Pantoprazole (Protonix) 20 Mg Tab 20 MG PO DAILY Reflux #30 TAB Tamsulosin (Flomax) 0.4 Mg Cap 0.4 MG PO DAILY BPH #30 CAP Rosangela Tucker DO Jan 27, 2017 10:06
[2017-01-27 12:00] VITALS: BP 103/75; PULSE 105; RESP 17; TEMP 98.4; O2SAT 94
== END 2017-01-27 13:33 | disposition home or self-care (01) | DRG 326 ==
LOC: NEPE 21:07 → NEDA 01-09 04:51 → NEPFCDU 01-09 06:03 → N07B 01-09 08:16 → N07A 01-09 13:28
PROVIDERS: ADMIT Hospitalist; ATTEND Hospitalist
PROC: 0TND8ZZ Release Urethra, Via Natural or Artificial Opening Endoscopic (ICD-10-PCS; 2017-01-09)
PROC: 0T9B80Z Drainage of Bladder with Drainage Device, Via Natural or Artificial Opening Endoscopic (ICD-10-PCS; 2017-01-09)
PROC: 0DBW0ZZ Excision of Peritoneum, Open Approach (ICD-10-PCS; 2017-01-19)
PROC: 0FP Hepatobiliary System and Pancreas, Removal (ICD-10-PCS; 2017-01-19)
PROC: 0F9G4ZZ Drainage of Pancreas, Percutaneous Endoscopic Approach (ICD-10-PCS; 2017-01-19)
PROC: 3E1M38Z Irrigation of Peritoneal Cavity using Irrigating Substance, Percutaneous Approach (ICD-10-PCS; 2017-01-19)
PROC: 0F7F8DZ Dilation of Accessory Pancreatic Duct with Intraluminal Device, Via Natural or Artificial Opening Endoscopic (ICD-10-PCS; 2017-01-19)
PROC: 0DQ60ZZ Repair Stomach, Open Approach (ICD-10-PCS; principal; 2017-01-19 16:04)
DX: K25.5 Chronic or unspecified gastric ulcer with perforation (principal); K68.9 Other disorders of retroperitoneum; N17.9 Acute kidney failure, unspecified; N13.30 Unspecified hydronephrosis; N39.0 Urinary tract infection, site not specified; N32.0 Bladder-neck obstruction; R13.10 Dysphagia, unspecified; N32.89 Other specified disorders of bladder; R63.4 Abnormal weight loss; D64.9 Anemia, unspecified; N32.3 Diverticulum of bladder; K66.0 Peritoneal adhesions (postprocedural) (postinfection); K59.00 Constipation, unspecified; R06.89 Other abnormalities of breathing; F10.10 Alcohol abuse, uncomplicated; F12.10 Cannabis abuse, uncomplicated; F14.10 Cocaine abuse, uncomplicated; F17.210 Nicotine dependence, cigarettes, uncomplicated; Z68.20 Body mass index [BMI] 20.0-20.9, adult; Z80.0 Family history of malignant neoplasm of digestive organs; Z86.14 Personal history of Methicillin resistant Staphylococcus aureus infection
CPT/HCPCS: 43242; 71010; 74000; 74176; 74177; 74183; 76000; 80048; 80053; 81001; 82105; 82378; 82607; 82728; 82747; 83010; 83540; 83550; 83615; 83690; 83735; 85025; 85027; 85044; 85610; 85730; 86140; 86301; 87040; 87077; 87086; 87186; 88304; 93005; 94150; 99285; A9579; C1726; C1769; C2625; C9113; E0100; J0696; J0744; J1644; J1885; J2060; J2270; J2370; J2405; J2710; J3010; J3475; J7030; J7120; Q9967

== ENCOUNTER 2017-02-02 10:00 | Emergency (ER) | payer SELFPAY ==
[~2017-02-02] VITALS: Ht 180.3 cm; Wt 68.0 kg
[~2017-02-02 10:00] MED LIST changes: +CIPR-9 PO; +LACTCAP8 PO; +OXYC-392 PO; +PANT20 PO; +TAMS5CAP PO; -TYLE3 PO; -Z.0.NO CURRENT MEDS
[2017-02-02 10:03] VITALS: BP 119/82; PULSE 74; RESP 20; O2SAT 100
[2017-02-02 10:20] VITALS: TEMP 98.2
--- NOTE | 2017-02-02 10:31 | PD ---
HPI Chief Complaint: Wound/Suture/Staple Re-Check Time Seen by Provider: 10:26 Travel History International Travel<30 days: No Contact w/Intl Traveler<30days: No Traveled to known affect area: No History of Present Illness HPI 61-year-old male presents to the emergency department requesting refill on OxyContin for pain. Says he had a cyst removed a couple weeks ago in his abdomen and he only received 12 OxyContin pills. He is not here for staple removal. He doesn't recall the surgeon's name. He denies fever, vomiting. Denies drainage from the wound site. Has no other medical complaints. No other modifying factors or associated signs and symptoms. History Past Medical Histgory Hx Cancer: No Hx Chemotherapy: No Hx Radiation Therapy: No Social History Alcohol Use: Yes (8 pack a day) Tobacco Use: Yes (1 PPD FOR 30 YEARS) Allergies-Medications (Allergen,Severity, Reaction): Coded Allergies: *MDRO Multi-Drug Resistant Organism (Verified Adverse Reaction, Unknown, ) MRSA Wounds 04/24/03, 04/22/03 Reported Meds & Prescriptions Reported Meds & Active Scripts Active Flomax (Tamsulosin HCl) 0.4 Mg Cap 0.4 Mg PO DAILY Protonix (Pantoprazole Sodium) 20 Mg Tab 20 Mg PO DAILY Cipro (Ciprofloxacin HCl) 500 Mg Tab 500 Mg PO BID Probiotic (Lactobacillus Acidophilus) 1 Cap Cap 1 Cap PO TIDAC Oxycodone (Oxycodone HCl) 5 Mg Tab 5 Mg PO Q6HR PRN DO NOT USE THIS MEDICINE IF YOU WILL DRIVE A CAR OR USE A MACHINE, ONLY USE IT WHEN RESTING AT HOME. Review of Systems Except as stated in HPI: all other systems reviewed are Neg Physical Exam Narrative GENERAL: Well-nourished, well-developed elderly, male patient, in no acute distress SKIN: Warm and dry. Midline abdominal surgical incision is well approximated with colt intact and without erythema, edema, drainage. No signs of infection. HEAD: Atraumatic. Normocephalic. EYES: Pupils equal and round. No scleral icterus. No injection or drainage. ENT: Mucosa pink and moist. Airway patent. NECK: Trachea midline. CARDIOVASCULAR: Regular rate. RESPIRATORY: No accessory muscle use. GASTROINTESTINAL: Flat. MUSCULOSKELETAL: No obvious deformities. No clubbing. No cyanosis. No edema. NEUROLOGICAL: Awake and alert. Oriented 3. No obvious cranial nerve deficits. Motor grossly within normal limits. Normal speech. PSYCHIATRIC: Appropriate mood and affect; insight and judgment normal. Data Data Last Documented VS Vital Signs Date Time Temp Pulse Resp B/P Pulse Ox O2 Delivery O2 Flow Rate FiO2 02/02/17 10:20 98.2 02/02/17 10:03 74 20 119/82 100 MDM Medical Screen Exam Complete: Yes Emergency Medical Condition: No Differential Diagnosis Pain management, narcotic seeking, medical clearance Narrative Course 61-year-old male requesting refill on OxyContin post abdominal surgery 2 weeks ago. I reviewed the record and the surgery was done January [address] Alvarado , general surgeon. I instructed the patient he needed to follow-up with Dr. Alvarado for a refill on requested pain medications. The patient states he is not here for staple removal, although I instructed him he needs to follow-up with Dr. Alvarado for staple removal. The patient has his discharge instructions from his previous visit with him. Vital signs are stable and the patient is stable for outpatient follow-up and treatment. The patient has no urgent or emergent medical complaints. There is no emergent or urgent medical need at this time. I instructed the patient to follow up with their primary care provider. A medical screening exam was performed: At the time of evaluation the presenting medical condition was determined not to be of an emergent nature. The patient was given the option of receiving additional care, but declined. Patient was given options for additional community resources from which to obtain care. The Patient Has Been advised to seek medical attention for their presenting complaint. The patient has been advised to return to the ER at any time if an emergent condition develops. Primary Impression: Encounter for medical screening examination Condition: Stable Morenita Rondon Feb 02, 2017 10:31
[2017-02-12] MEDS ORDERED: OXYC-392 PO (16:41)
[2017-02-16] MEDS ORDERED: PHEN0.4T PO (16:22)
[2017-02-27] MEDS ORDERED: OXYC-392 PO (10:06)
[2017-02-27] MEDS ORDERED: PHEN0.4T PO (10:06)
[2017-03-04] MEDS ORDERED: OXYC-392 PO (16:31)
[2017-03-12] MEDS ORDERED: OXYC-392 PO (10:20)
[2017-03-25] MEDS ORDERED: PERC5TAB12 PO (16:03)
[2017-04-07] MEDS ORDERED: PHEN0.4T PO ×2 (10:10→10:12)
[2017-04-07] MEDS ORDERED: PERC5TAB12 PO ×2 (10:10→10:12)
[2017-04-13] MEDS ORDERED: IBUP-232 PO (16:33)
== END 2017-02-02 10:33 | disposition left against medical advice (07) ==
LOC: NEPK 10:00
DX: G89.18 Other acute postprocedural pain (principal)
CPT/HCPCS: 99281

== ENCOUNTER → 2017-04-07 | Outpatient (CLI) | payer OTHER ==
[~2017-04-07] MED LIST changes: +CEPH-459 PO; -CIPR-9 PO; +IBUP-232 PO; +IOHEXOL 350 MG/ML 10 ML VIAL (for RAD DIAG) IVCONTRAST ONE; -LACTCAP8 PO; -PANT20 PO; +PERC5TAB12 PO; +PHEN0.4T PO; -TAMS5CAP PO
--- NOTE | 2017-04-07 14:04 | RADRPT ---
EXAM DATE/TIME: 04/07/2017 13:27 [facility] COMPARISON: CT ABDOMEN & PELVIS W/O CONTRAST, January 19, 2017, 18:07. CT ABDOMEN & PELVIS W CONTRAST, January 09 7, 3:38. INDICATIONS : Abdominal pain IV CONTRAST: 100 cc Omnipaque 350 (iohexol) IV ORAL CONTRAST: Prescribed oral contrast ingested. RADIATION DOSE: 9.05 CTDIvol (mGy) MEDICAL HISTORY : None SURGICAL HISTORY : None. ENCOUNTER: Initial ACUITY: 1 day PAIN SCALE: 6/10 LOCATION: diffuse abdomen TECHNIQUE: Volumetric scanning of the abdomen and pelvis was performed. Using automated exposure control and ad justment of the mA and/or kV according to patient size, radiation dose was kept as low as reasonably achievable to obtain optimal diagnostic quality images. DICOM format image data is available electro nically for review and comparison. FINDINGS: LOWER LUNGS: The visualized lower lungs are clear. LIVER: Homogeneous density without lesion. There is no dilation of the biliary tree. No calcified gallston es. SPLEEN: Normal size without lesion. PANCREAS: Within normal limits. Large cystic fluid collection in the lesser sac has completely resolved. KIDNEYS: Normal in size and shape. There is no mass, stone or hydronephrosis. Marked hydronephrosis identifie d in December has resolved. ADRENAL GLANDS: Within normal limits. VASCULAR: There is no aortic aneurysm. BOWEL/MESENTERY: Several loops of mid-distal small bowel are mildly distended. Discrete transition is difficult to eduar ntify. Moderate amount retained stool is present throughout the colon. There is no evidence of free a ir ABDOMINAL WALL: Within normal limits. RETROPERITONEUM: There is no lymphadenopathy. BLADDER: Marked bladder wall thickening remains evident. Cortes catheter is in place. Tubular fluid collection along the right side of the bladder appears represent a bladder diverticulum. A smaller diverticulum is seen along the left posterolateral margin of the bladder. REPRODUCTIVE: Prostate is enlarged and contains calcifications throughout the transition zone. INGUINAL: There is no lymphadenopathy or hernia. MUSCULOSKELETAL: Within normal limits for patient age. CONCLUSION: 1. Mild mid to distal small bowel ileus without evidence of discrete transition zone. 2. Interval resolution of lesser sac fluid collection and marked bilateral hydronephrosis. 3. Markedly thickened trabeculated urinary bladder wall with bilateral diverticula. Ravinder Montana MD on April 07, 2017 at 13:54 Board Certified Radiologist. This report was verified electronically.
== END ==
LOC: HRAD 08:52
PROVIDERS: ATTEND Surgery
DX: R10.9 Unspecified abdominal pain (principal)
CPT/HCPCS: 74177; Q9967

== ENCOUNTER 2017-04-20 10:54 | Day surgery (SDC) | payer OTHER ==
[~2017-04-20] VITALS: Ht 180.3 cm; Wt 70.0 kg
[~2017-04-20 10:54] MED LIST changes: -CEPH-459 PO; +DEXAMETHASONE SOD PHOS 4 MG/ML VIAL IV ONE; +GLYCOPYRROLATE 1 MG/5 ML SYRINGE IV PUSH ONE; -IOHEXOL 350 MG/ML 10 ML VIAL (for RAD DIAG) IVCONTRAST ONE; +LACTATED RINGER'S 1000 ML INJ 1,000 ML IV ONE; +LIDOCAINE HCL 1% PF 5 ML AMPULE OTHER ONE; +MIDAZOLAM HCL 2 MG/2 ML VIAL IV ONE; +ONDANSETRON HCL 4 MG/2 ML VIAL IV PUSH ONE; +PHENYLEPH/NS 1000 MCG/10 ML SYR IV ONE; +PROPOFOL 200 MG/20 ML AMP IV ONE; +ePHEDrine/NS 25 MG/5 ML SYR IV ONE
[2017-04-20] MEDS ORDERED: LACTATED RINGER'S 1000 ML IV PRN (11:45)
[2017-04-20] MEDS ORDERED: ceFAZolin 1,000 MG/NS 100 ML IV SCH ×2 (11:45)
[2017-04-20] MEDS ORDERED: POVIDONE IODINE 5% (ANTISEPSIS KIT) 4 APPLICATIONS EACH NARE PRN (11:45)
[2017-04-20] MEDS ORDERED: INSULIN HUMAN REGULAR 1,000 UNITS/10 ML VIAL SQ PRN (11:45)
[2017-04-20] MEDS ORDERED: METOPROLOL TARTRATE 25 MG TAB PO PRN (11:45)
[2017-04-20] MEDS ORDERED: SODIUM CHLORID 0.9% 500 ML IV PRN (11:45)
[2017-04-20] MEDS ORDERED: CHLORHEXIDINE GLUCONATE 2 % 1 PACK (2 CLOTHS) TOPICAL PRN (11:45)
[2017-04-20 12:04] LABS: AUTOMATED NEUTROPHIL # 5.2 TH/MM3 (1.8-7.7); BASOPHIL % 0.6 % (0.0-2.0); EOSINOPHIL # 0.2 TH/MM3 (0-0.4); EOSINOPHIL % 1.9 % (0.0-4.0); HEMO FLAGS DIFF FINAL; LYMPH % 28.8 % (9.0-44.0); LYMPHOCYTE # 2.5 TH/MM3 (1.0-4.8); MEAN CELL VOLUME 97.4 FL (80.0-100.0); MEAN CORPUSCULAR HEMOGLOBIN 33.2 PG (27.0-34.0); MEAN CORPUSCULAR HGB CONC 34.1 % (32.0-36.0); NEUT % 61.7 % (16.0-70.0); PLATELET COUNT 368 TH/MM3 (150-450); RED BLOOD COUNT 4.72 MIL/MM3 (4.50-5.90); WHITE BLOOD COUNT 8.5 TH/MM3 (4.0-11.0)
--- NOTE | 2017-04-20 17:30 | PD.OP ---
Operative Report Date of Surgery: Apr 20, 2017 Preoperative Diagnosis: (1) Atonic neurogenic bladder Postoperative Diagnosis: (1) Atonic neurogenic bladder Procedure: Cystoscopy and placement of suprapubic catheter Anesthesia: General Surgeon: Eduardo Carrera Chuck Wagon Cook(s): None Operation and Findings: Indication for procedure: The case of a pleasant 61-year-old gentleman with atonic neurogenic bladder who presents today for cystoscopy and placement of a suprapubic catheter. Operative procedure in detail: Patient was brought to the operating suite and placed supine on the or table. He was in place and the general anesthesia. He was then repositioned in the dorsolithotomy position and prepped and draped in normal sterile fashion. After an appropriate timeout was undertaken to proceed with cystoscopic evaluation utilizing the rigid cystoscope with the 20 [place] sheath and 30 lens. The urethra was patent without recurrent stricture formation. The prostatic urethra was nonobstructing. Further passage of the cystoscope within the urinary bladder revealed a markedly trabeculated bladder with cellule formation. Both right and left ureteral orifices were in correct anatomic position effluxing clear yellow urine. The bladder was filled with approximately 400 cc of sterile water. I next made a small less than 1 cm vertical incision approximately 2 cm cephalad from the symphysis pubis. The suprapubic peel-away sheath with stylet in place was utilized and under direct vision the anterior bladder wall was perforated. The obturator was removed and a 16 [place] 10 cc Cortes catheter was placed via the sheath and the sheath subsequently peeled away. 10 cc of sterile water was instilled into the Cortes balloon and the catheter secured to the abdomen with a single 2-0 nylon suture. A sterile dressing was placed around the wound site. The patient tolerated the procedures and was transferred to the PACU in satisfactory condition. Eduardo Carrera MD Apr 20, 2017 17:30
[2017-04-20] MEDS ORDERED: CEPH-459 PO (17:31)
[2017-04-20] MEDS ORDERED: PERC5TAB12 PO (17:31)
[2017-04-20] MEDS ORDERED: DO NOT ADM ANY ANTICOAGULANT DRUGS PRN (17:43)
[2017-04-20] MEDS ORDERED: ONDANSETRON HCL 4 MG/2 ML VIAL IV PUSH PRN (17:45)
[2017-04-20] MEDS ORDERED: *morphine SULFATE 8 MG/ML PERIprocedure ONLY ONE (17:47)
[2017-04-20] MEDS ORDERED: SODIUM CHLORIDE FLUSH PRN IV FLUSH (20:00)
[2017-04-20 20:27] VITALS: BP 130/77; PULSE 80; RESP 18; TEMP 96.4; O2SAT 92
[2017-04-20] MEDS ORDERED: SODIUM CHLORIDE FLUSH BID IV FLUSH SCH (21:00)
[2017-04-20 21:24] VITALS: O2SAT 92
[2017-04-20] MEDS: oxyCODONE/ACETAMINOPHEN 5 MG/325 MG TAB PO PRN (23:01)
[2017-04-21 00:31] VITALS: BP 121/82; PULSE 80; RESP 18; TEMP 96.9; O2SAT 97
[2017-04-21] MEDS: oxyCODONE/ACETAMINOPHEN 5 MG/325 MG TAB PO PRN (04:41)
[2017-04-21 08:00] VITALS: BP 121/75; PULSE 77; RESP 18; TEMP 96.6; O2SAT 96
== END 2017-04-21 10:23 | disposition home or self-care (01) ==
LOC: HSDC 10:54 → N07B 19:27 → UNDOADMOB 19:27 → UNDODISOB 04-21 10:23 → HSDC 04-21 10:23
PROVIDERS: ATTEND Urology
DX: N31.2 Flaccid neuropathic bladder, not elsewhere classified (principal); Z01.818 Encounter for other preprocedural examination
CPT/HCPCS: 00800; 51102; 85025; J1100; J2250; J2270; J2370; J2405; J3010; J7120

== ENCOUNTER 2017-07-19 21:40 | Emergency (ER) | payer OTHER ==
[~2017-07-19] VITALS: Ht 180.3 cm; Wt 75.0 kg
[~2017-07-19 21:40] MED LIST changes: -DEXAMETHASONE SOD PHOS 4 MG/ML VIAL IV ONE; -GLYCOPYRROLATE 1 MG/5 ML SYRINGE IV PUSH ONE; -IBUP-232 PO; -LACTATED RINGER'S 1000 ML INJ 1,000 ML IV ONE; -LIDOCAINE HCL 1% PF 5 ML AMPULE OTHER ONE; -MIDAZOLAM HCL 2 MG/2 ML VIAL IV ONE; -ONDANSETRON HCL 4 MG/2 ML VIAL IV PUSH ONE; +OXYB5TAB8 PO; -OXYC-392 PO; +OXYC15TA PO; -PHEN0.4T PO; -PHENYLEPH/NS 1000 MCG/10 ML SYR IV ONE; -PROPOFOL 200 MG/20 ML AMP IV ONE; -ePHEDrine/NS 25 MG/5 ML SYR IV ONE
[2017-07-19] MEDS ORDERED: IOHEXOL 350 MG/ML 10 ML VIAL (for RAD DIAG) IVCONTRAST ONE (21:41)
[2017-07-19 21:43] VITALS: BP 121/86; PULSE 82; RESP 16; TEMP 98; O2SAT 100
[2017-07-19] MEDS ORDERED: SODIUM CHLOR 0.9% 1000 ML INJ 1,000 ML IV SCH (22:38)
[2017-07-19] MEDS ORDERED: MORPHINE SULFATE 2 MG/ML INJ IV PUSH ONE (22:45)
[2017-07-19] MEDS ORDERED: SODIUM CHLORIDE 0.9% FLUSH 10 ML FLUSH IV FLUSH PRN (22:45)
[2017-07-19] MEDS ORDERED: ONDANSETRON HCL 4 MG/2 ML VIAL IVP ONE (22:45)
[2017-07-19 23:03] VITALS: BP 105/57; PULSE 68; RESP 18; O2SAT 96
[2017-07-19 23:09] LABS: AUTOMATED NEUTROPHIL # 7.2 TH/MM3 (1.8-7.7); BASOPHIL # 0.1 TH/MM3 (0-0.2); BASOPHIL % 0.5 % (0.0-2.0); EOSINOPHIL # 0.1 TH/MM3 (0-0.4); EOSINOPHIL % 1.2 % (0.0-4.0); HEMATOCRIT 39.8 % (39.0-51.0); HEMOGLOBIN 13.5 GM/DL (13.0-17.0); LYMPH % 22.1 % (9.0-44.0); LYMPHOCYTE # 2.3 TH/MM3 (1.0-4.8); MEAN CELL VOLUME 96.1 FL (80.0-100.0); MEAN CORPUSCULAR HEMOGLOBIN 32.6 PG (27.0-34.0); MEAN CORPUSCULAR HGB CONC 33.9 % (32.0-36.0); MEAN PLATELET VOLUME 8.2 FL (7.0-11.0); MONO % 5.9 % (0.0-8.0); MONOCYTE # 0.6 TH/MM3 (0-0.9); NEUT % 70.3 % (16.0-70.0); PLATELET COUNT 343 TH/MM3 (150-450); RED BLOOD COUNT 4.14 MIL/MM3 (4.50-5.90); RED CELL DISTRIBUTION WIDTH 14.3 % (11.6-17.2); WHITE BLOOD COUNT 10.3 TH/MM3 (4.0-11.0)
[2017-07-19 23:12] VITALS: RESP 18
[2017-07-19 23:20] LABS: PROTHROMBIN TIME - PATIENT 10.3 SEC (9.8-11.6)
[2017-07-19 23:35] LABS: ALBUMIN 3.4 GM/DL (3.4-5.0); AST (GOT) 37 U/L (15-37); BICARBONATE 23.7 MEQ/L (21.0-32.0); BLOOD UREA NITROGEN 19 MG/DL (7-18); CALCIUM 8.6 MG/DL (8.5-10.1); CHLORIDE 102 MEQ/L (98-107); CREATININE 1.18 MG/DL (0.60-1.30); GLOMERULAR FILTRATION RATE 76 ML/MIN (>89); GLUCOSE,RANDOM 112 MG/DL (74-106); LIPASE 323 U/L (73-393); SODIUM (NA) 135 MEQ/L (136-145)
--- NOTE | 2017-07-19 23:35 | PD ---
HPI Chief Complaint: Fall Time Seen by Provider: 22:07 Travel History International Travel<30 days: No Contact w/Intl Traveler<30days: No Traveled to known affect area: No History of Present Illness HPI Patient is a 61 year old male who comes in complaining of abdominal pain with nausea and vomiting. He says the pain started two days ago and it is all over his abdomen. He says he last vomited last night. He ate and drank without an issue today. He has a suprapubic catheter and believes when he fell 3 weeks ago , this caused a problems and this is why he has pain now. However, he says the pain only started two days ago. He says he has not had a bowel movement in 5 days. He has been taking Oxycodone for pain. He denies fever or chills. PFSH Past Medical History 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 PER PT.) Asthma: No Autoimmune Disease: No Blood Disorders: No Heart Rhythm Problems: No Cancer: No Cardiovascular Problems: No High Cholesterol: No Chemotherapy: No Chest Pain: No Congestive Heart Failure: No COPD: No Cerebrovascular Accident: No Diabetes: No Diminished Hearing: No Endocrine: No GERD: No Glaucoma: No Genitourinary: Yes Hepatitis: No Hiatal Hernia: No Hypertension: No Immune Disorder: No Kidney Stones: No Neurologic: No Psychiatric: No Reproductive: No Respiratory: No Myocardial Infarction: No Radiation Therapy: No Renal Failure: No Seizures: No Thyroid Disease: No Ulcer: No Past Surgical History Abdominal Surgery: No AICD: No Ear Surgery: No Endocrine Surgery: No Eye Surgery: No Genitourinary Surgery: No Joint Replacement: No Oral Surgery: No Pacemaker: No Thoracic Surgery: No Other Surgery: Yes (Pt states suprapubic catheter) Social History Alcohol Use: Yes (4 pack a day) Tobacco Use: Yes (1/2 PPD FOR 30 YEARS) Substance Use: No (in the past) Allergies-Medications (Allergen,Severity, Reaction): Coded Allergies: ibuprofen (Verified Allergy, Mild, Nausea/Vomiting, 07/03/17) Reported Meds & Prescriptions Reported Meds & Active Scripts Active [place] (Hydrocodone-Acetaminophen) 5 Mg-325 Mg Tab 1 Tab PO Q6H PRN Cipro (Ciprofloxacin HCl) 500 Mg Tab 500 Mg PO BID 10 Days Percocet (Oxycodone-Acetaminophen) 5-325 mg Tab 1-2 Tab PO Q4H PRN Oxycodone (Oxycodone HCl) 15 Mg Tab 15 Mg PO Q6H PRN Ditropan (Oxybutynin Chloride) 5 Mg Tab 5 Mg PO Q8HR Review of Systems Except as stated in HPI: all other systems reviewed are Neg General / Constitutional: No: Fever, Chills HENT: No: Headaches, Lightheadedness Cardiovascular: No: Chest Pain or Discomfort Respiratory: No: Shortness of Breath Gastrointestinal: Positive: Nausea, Vomiting, Abdominal Pain Genitourinary: No: Flank Pain Musculoskeletal: No: Myalgias Skin: No Rash, No Change in Pigmentation Neurologic: No: Weakness, Dizziness Physical Exam Narrative GENERAL: Awake and alert, in no acute distress. SKIN: Focused skin assessment warm/dry. No signs of infection. HEAD: Atraumatic. Normocephalic. EYES: Pupils equal and round. No scleral icterus. ENT: Mucous membranes pink and moist. NECK: Trachea midline. No JVD. CARDIOVASCULAR: Regular rate and rhythm. No murmur appreciated. RESPIRATORY: No accessory muscle use. Clear to auscultation. Breath sounds equal bilaterally. GASTROINTESTINAL: Abdomen soft, nondistended. Mild diffuse tenderness to palpation. No rebound or guarding. Suprapubic catheter in place. MUSCULOSKELETAL: No obvious deformities. No clubbing. No cyanosis. No edema. NEUROLOGICAL: Awake and alert. No obvious cranial nerve deficits. Motor grossly within normal limits. Normal speech. PSYCHIATRIC: Appropriate mood and affect; insight and judgment normal. Data Data Last Documented VS Vital Signs Date Time Temp Pulse Resp B/P (MAP) Pulse Ox O2 Delivery O2 Flow Rate FiO2 07/19/17 23:12 18 07/19/17 23:03 68 105/57 (73) 96 Room Air 07/19/17 21:43 98.0 Orders Orders Complete Blood Count With Diff (07/19/17 22:38) Comprehensive Metabolic Panel (07/19/17 22:38) Lipase (07/19/17 22:38) Lactic Acid (07/19/17 22:38) Prothrombin Time / Inr (Pt) (07/19/17 22:38) Act Partial Throm Time (Ptt) (07/19/17 22:38) Urinalysis - C+S If Indicated (07/19/17 22:38) Ct Abd/Pel W Iv Contrast(Rout) (07/19/17 22:38) Iv Access Insert/Monitor (07/19/17 22:38) Ecg Monitoring (07/19/17 22:38) Oximetry (07/19/17 22:38) Ondansetron Inj (Zofran Inj) (07/19/17 22:45) Sodium Chlor 0.9% 1000 Ml Inj (Ns 1000 M (07/19/17 22:38) Sodium Chloride 0.9% Flush (Ns Flush) (07/19/17 22:45) Morphine Inj (Morphine Inj) (07/19/17 22:45) Iohexol 350 Inj (Omnipaque 350 Inj) (07/19/17 21:41) Labs Laboratory Tests Test 07/19/17 22:55 White Blood Count 10.3 TH/MM3 Red Blood Count 4.14 MIL/MM3 Hemoglobin 13.5 GM/DL Hematocrit 39.8 % Mean Corpuscular Volume 96.1 FL Mean Corpuscular Hemoglobin 32.6 PG Mean Corpuscular Hemoglobin Concent 33.9 % Red Cell Distribution Width 14.3 % Platelet Count 343 TH/MM3 Mean Platelet Volume 8.2 FL Neutrophils (%) (Auto) 70.3 % Lymphocytes (%) (Auto) 22.1 % Monocytes (%) (Auto) 5.9 % Eosinophils (%) (Auto) 1.2 % Basophils (%) (Auto) 0.5 % Neutrophils # (Auto) 7.2 TH/MM3 Lymphocytes # (Auto) 2.3 TH/MM3 Monocytes # (Auto) 0.6 TH/MM3 Eosinophils # (Auto) 0.1 TH/MM3 Basophils # (Auto) 0.1 TH/MM3 CBC Comment DIFF FINAL Differential Comment Prothrombin Time 10.3 SEC Prothromb Time International Ratio 1.0 RATIO Activated Partial Thromboplast Time 27.2 SEC Blood Urea Nitrogen 19 MG/DL Creatinine 1.18 MG/DL Random Glucose 112 MG/DL Total Protein 8.1 GM/DL Albumin 3.4 GM/DL Calcium Level 8.6 MG/DL Alkaline Phosphatase 107 U/L Aspartate Amino Transf (AST/SGOT) 37 U/L Alanine Aminotransferase (ALT/SGPT) 22 U/L Total Bilirubin 0.3 MG/DL Sodium Level 135 MEQ/L Potassium Level 3.5 MEQ/L Chloride Level 102 MEQ/L Carbon Dioxide Level 23.7 MEQ/L Anion Gap 9 MEQ/L Estimat Glomerular Filtration Rate 76 ML/MIN Lactic Acid Level 2.3 mmol/L Lipase 323 U/L [facility] Medical Decision Making Medical Screen Exam Complete: Yes Emergency Medical Condition: Yes Medical Record Reviewed: Yes Differential Diagnosis colitis vs SBO vs UTI Narrative Course Patient is a 61 year old male who comes in complaining of abdominal pain for two days. Exam shows mild diffuse tenderness to palpation. IV established, labs sent. labs show some mild dehydration. Given IVF and pain medicine. CT shows thickening of the bladder wall and interstitial infiltrates. Last 24 hours Impressions Abdomen/Pelvis CT 07/19/[id number] Signed Impressions: Service Date/Time: Thursday, July 20, 2017 00:01 - CONCLUSION: 1. Bilateral lower lung non-consolidative interstitial infiltrates. 2. Suprapubic catheter in place. Incomplete evaluation of the urinary bladder, but the findings do suggest significant concentric bladder wall thickening. 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 3. Mild constipation without dilated loops of small large bowel. 4. No acute osseous findings. Jonh New MD Given a prescription for antibiotics. Advised to follow up with Dr. Roach as scheduled tomorrow. Advised to return to the ED as needed for any worsening symptoms. Patient refused to allow us to collect a urine sample. Diagnosis Primary Impression: Cystitis Patient Instructions: General Instructions, Interstitial Cystitis (ED) Additional Instructions: Follow up with Dr. Roach as scheduled. Take all of your antibiotic. Return to the ED as needed for any worsening symptoms. Scripts Hydrocodone-Acetaminophen ([place]) 5 Mg-325 Mg Tab 1 TAB PO Q6H Y for PAIN, #7 TAB 0 Refills Prov: Martha Craft MD 07/20/17 Ciprofloxacin (Cipro) 500 Mg Tab 500 MG PO BID for Infection for 10 Days, #20 TAB 0 Refills Prov: Martha Craft MD 07/20/17 Disposition: 01 DISCHARGE HOME Condition: Stable Martha Craft MD Jul 19, 2017 23:35
[2017-07-19 23:36] LABS: ALT (GPT) 22 U/L (12-78)
[2017-07-19 23:40] LABS: ALKALINE PHOSPHATASE 107 U/L (45-117); TOTAL BILIRUBIN ADULT 0.3 MG/DL (0.2-1.0); TOTAL PROTEIN 8.1 GM/DL (6.4-8.2)
--- NOTE | 2017-07-20 00:20 | RADRPT ---
EXAM DATE/TIME: 07/20/2017 00:01 [facility] COMPARISON: CT ABDOMEN & PELVIS W CONTRAST, April 07, 2017, 13:27. INDICATIONS : Abdomen pain after fall 3 weeks ago. IV CONTRAST: 79 cc Omnipaque 350 (iohexol) IV ORAL CONTRAST: No oral contrast ingested. RADIATION DOSE: 4.90 CTDIvol (mGy) MEDICAL HISTORY : None SURGICAL HISTORY : Suprapubic cath ENCOUNTER: Initial ACUITY: 3 weeks PAIN SCALE: 4/10 LOCATION: abdomen TECHNIQUE: Volumetric scanning of the abdomen and pelvis was performed. Using automated exposure control and ad justment of the mA and/or kV according to patient size, radiation dose was kept as low as reasonably achievable to obtain optimal diagnostic quality images. DICOM format image data is available electro nically for review and comparison. FINDINGS: LOWER LUNGS: Bilateral posterior lower lung interstitial prominence without consolidation is a new finding from pr ior CT. No evidence of pleural effusion. LIVER: Homogeneous density without lesion. There is no dilation of the biliary tree. No calcified gallston es. SPLEEN: Normal size without lesion. PANCREAS: Within normal limits. KIDNEYS: Normal in size and shape. There is no mass, stone or hydronephrosis. ADRENAL GLANDS: Within normal limits. VASCULAR: There is no aortic aneurysm. BOWEL/MESENTERY: No dilated loops of small bowel. Moderate amount of stool in the right colon and sigmoid colon. No evidence of free fluid. ABDOMINAL WALL: Within normal limits. RETROPERITONEUM: There is no lymphadenopathy. BLADDER: Suprapubic catheter in the urinary bladder. The bladder lumen is decompressed, but there does appear to be concentric thickening of the bladder wall measuring up to 3 cm in thickness. To the right of the urinary bladder, there is an oblong cystic area which measures 4.3 x 1.5 cm; this structure was p resent on prior CT and was felt to represent bladder diverticulum. REPRODUCTIVE: Within normal limits. INGUINAL: There is no lymphadenopathy or hernia. MUSCULOSKELETAL: No fracture seen. Moderate hypertrophic degenerative changes in the posterior elements of the lower lumbar spine, similar to prior. CONCLUSION: 1. Bilateral lower lung non-consolidative interstitial infiltrates. 2. Suprapubic catheter in place. Incomplete evaluation of the urinary bladder, but the findings do s uggest significant concentric bladder wall thickening. Obstruction to the right he urinary bladder b elieved to represent bladder diverticulum similar to prior CT. 3. Mild constipation without dilated loops of small large bowel. 4. No acute osseous findings. Jonh New MD on July 20, 2017 at 0:10 Board Certified Radiologist. This report was verified electronically.
[2017-07-20] MEDS ORDERED: NORC5TAB PO (00:43)
[2017-07-20] MEDS ORDERED: CIPR-9 PO (00:43)
[2017-07-20 00:56] VITALS: BP 104/55
== END 2017-07-20 01:52 | disposition home or self-care (01) ==
LOC: NEPD 21:40
DX: N30.90 Cystitis, unspecified without hematuria (principal); K59.00 Constipation, unspecified; R91.8 Other nonspecific abnormal finding of lung field; E86.0 Dehydration; R11.2 Nausea with vomiting, unspecified; M19.011 Primary osteoarthritis, right shoulder; F17.200 Nicotine dependence, unspecified, uncomplicated; Z88.6 Allergy status to analgesic agent; Z79.899 Other long term (current) drug therapy
CPT/HCPCS: 74177; 80053; 83605; 83690; 85025; 85610; 85730; 96361; 96374; 96375; 99285; J2270; J2405; J7030; Q9967

== ENCOUNTER 2017-08-21 11:08 | Emergency (ER) | payer OTHER ==
[~2017-08-21] VITALS: Ht 180.3 cm; Wt 90.0 kg
[~2017-08-21 11:08] MED LIST changes: +CIPR-9 PO; +NORC5TAB PO
[2017-08-21 11:09] VITALS: BP 144/77; PULSE 74; RESP 16; TEMP 98.6; O2SAT 99
--- NOTE | 2017-08-21 13:42 | PD ---
HPI Chief Complaint: GI Complaint Time Seen by Provider: 13:38 Travel History International Travel<30 days: No Contact w/Intl Traveler<30days: No History of Present Illness HPI C/O ABD PAIN GENERALIZED, 01/05, NONRAD, PATIENT STATES THAT HE HAD NO N/V/D/. HOWEVER, IS WONDERING IF HIS HERNIA REPAIR MAY BE INVOLVED WITH THIS PAIN....HERNIA REPAIRED LAST YEAR. ALL:IBUPROFEN PCP PMHX/PSHX: URINARY RETENTION WITH SUPRAPUBIC CATHETER, MULTIPLE ORTHOPEDIC SURGERIES PFSH Past Medical History 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 PER PT.) Asthma: No Autoimmune Disease: No Blood Disorders: No Heart Rhythm Problems: No Cancer: No Cardiovascular Problems: No High Cholesterol: No Chemotherapy: No Chest Pain: No Congestive Heart Failure: No COPD: No Cerebrovascular Accident: No Diabetes: No Diminished Hearing: No Endocrine: No GERD: No Glaucoma: No Genitourinary: Yes Hepatitis: No Hiatal Hernia: No Hypertension: No Immune Disorder: No Kidney Stones: No Neurologic: No Psychiatric: No Reproductive: No Respiratory: No Myocardial Infarction: No Radiation Therapy: No Renal Failure: No Seizures: No Thyroid Disease: No Ulcer: No Past Surgical History Abdominal Surgery: No AICD: No Ear Surgery: No Endocrine Surgery: No Eye Surgery: No Genitourinary Surgery: No Joint Replacement: No Oral Surgery: No Pacemaker: No Thoracic Surgery: No Other Surgery: Yes (Pt states suprapubic catheter) Social History Alcohol Use: Yes (4 pack a day) Tobacco Use: Yes (1/2 PPD FOR 30 YEARS) Substance Use: No (in the past) Allergies-Medications (Allergen,Severity, Reaction): Coded Allergies: ibuprofen (Verified Allergy, Mild, Nausea/Vomiting, 07/20/17) Reported Meds & Prescriptions Reported Meds & Active Scripts Active Ditropan (Oxybutynin Chloride) 5 Mg Tab 5 Mg PO Q8HR Review of Systems General / Constitutional: No: Fever Eyes: No: Visual changes HENT: No: Headaches Cardiovascular: No: Chest Pain or Discomfort Respiratory: No: Shortness of Breath Gastrointestinal: Positive: Abdominal Pain Genitourinary: No: Dysuria Musculoskeletal: No: Pain Skin: No Rash Neurologic: No: Weakness Psychiatric: No: Depression Endocrine: No: Polydipsia Hematologic/Lymphatic: No: Easy Bruising Physical Exam Narrative GENERAL: SKIN: Warm and dry. HEAD: Atraumatic. Normocephalic. EYES: Pupils equal and round. No scleral icterus. No injection or drainage. ENT: No nasal bleeding or discharge. Mucous membranes pink and moist. NECK: Trachea midline. No JVD. CARDIOVASCULAR: Regular rate and rhythm. RESPIRATORY: No accessory muscle use. Clear to auscultation. Breath sounds equal bilaterally. GASTROINTESTINAL: Abdomen soft, non-tender, nondistended. MUSCULOSKELETAL: Extremities without clubbing, cyanosis, or edema. No obvious deformities. NEUROLOGICAL: Awake and alert. No obvious cranial nerve deficits. Motor grossly within normal limits. Five out of 5 muscle strength in the arms and legs. Normal speech. PSYCHIATRIC: Appropriate mood and affect; insight and judgment normal. Data Data Last Documented VS Vital Signs Date Time Temp Pulse Resp B/P (MAP) Pulse Ox O2 Delivery O2 Flow Rate FiO2 08/21/17 14:43 Room Air 08/21/17 14:43 08/21/17 11:09 98.6 74 16 99 Orders Orders Complete Blood Count With Diff (08/21/17 12:20) Comprehensive Metabolic Panel (08/21/17 12:20) Urinalysis - C+S If Indicated (08/21/17 12:20) Iv Access Insert/Monitor (08/21/17 12:20) Oxygen Administration (08/21/17 12:20) Oximetry (08/21/17 12:20) Lipase (08/21/17 12:20) Ct Abd/Pel W/O Iv Contrast (08/21/17 14:10) Ecg Monitoring (08/21/17 14:10) Sodium Chloride 0.9% Flush (Ns Flush) (08/21/17 14:15) Labs Laboratory Tests Test 08/21/17 14:30 White Blood Count 7.6 TH/MM3 Red Blood Count 4.50 MIL/MM3 Hemoglobin 14.6 GM/DL Hematocrit 43.8 % Mean Corpuscular Volume 97.3 FL Mean Corpuscular Hemoglobin 32.5 PG Mean Corpuscular Hemoglobin Concent 33.4 % Red Cell Distribution Width 14.4 % Platelet Count 334 TH/MM3 Mean Platelet Volume 8.4 FL Neutrophils (%) (Auto) 64.6 % Lymphocytes (%) (Auto) 23.0 % Monocytes (%) (Auto) 9.7 % Eosinophils (%) (Auto) 2.0 % Basophils (%) (Auto) 0.7 % Neutrophils # (Auto) 4.9 TH/MM3 Lymphocytes # (Auto) 1.7 TH/MM3 Monocytes # (Auto) 0.7 TH/MM3 Eosinophils # (Auto) 0.2 TH/MM3 Basophils # (Auto) 0.1 TH/MM3 CBC Comment DIFF FINAL Differential Comment Blood Urea Nitrogen 12 MG/DL Creatinine 1.08 MG/DL Random Glucose 84 MG/DL Total Protein 8.4 GM/DL Albumin 3.6 GM/DL Calcium Level 9.0 MG/DL Alkaline Phosphatase 118 U/L Aspartate Amino Transf (AST/SGOT) 27 U/L Alanine Aminotransferase (ALT/SGPT) 23 U/L Total Bilirubin 0.9 MG/DL Sodium Level 134 MEQ/L Potassium Level 3.8 MEQ/L Chloride Level 100 MEQ/L Carbon Dioxide Level 27.6 MEQ/L Anion Gap 6 MEQ/L Estimat Glomerular Filtration Rate 84 ML/MIN Lipase 136 U/L [facility] Medical Decision Making Medical Screen Exam Complete: Yes Emergency Medical Condition: Yes Medical Record Reviewed: Yes Differential Diagnosis PANCREATITIS V HEPATITIS V DIVERTICULITIS V COLITIS Narrative Course NO LEUKOCYTOSIS, NO ANEMIA, NO LEFT SHIFT' CT ABD/PELVIS: READ NO ACUTE FINDINGS, BLADDER DIVERTICULUM AND SUPRAPUBIC CATH IN PLACE. NO E/O ILEUS/SBO Diagnosis Primary Impression: VENTRAL HERNIA Referrals: Varghese Adler MD PLEASE FOLLOWUP FOR FURTHER RECOMMENDATIONS. Additional Instructions: DR ADLER REPAIRED HIS HERNIAS IN MAR 2017 Disposition: 01 DISCHARGE HOME Condition: Stable Anjum Kerns MD Aug 21, 2017 13:42
[2017-08-21] MEDS ORDERED: SODIUM CHLORIDE 0.9% FLUSH 10 ML FLUSH IV FLUSH PRN (14:15)
[2017-08-21 15:05] LABS: AUTOMATED NEUTROPHIL # 4.9 TH/MM3 (1.8-7.7); BASOPHIL # 0.1 TH/MM3 (0-0.2); BASOPHIL % 0.7 % (0.0-2.0); EOSINOPHIL # 0.2 TH/MM3 (0-0.4); HEMATOCRIT 43.8 % (39.0-51.0); HEMOGLOBIN 14.6 GM/DL (13.0-17.0); LYMPHOCYTE # 1.7 TH/MM3 (1.0-4.8); MEAN CELL VOLUME 97.3 FL (80.0-100.0); MEAN CORPUSCULAR HEMOGLOBIN 32.5 PG (27.0-34.0); MEAN CORPUSCULAR HGB CONC 33.4 % (32.0-36.0); MEAN PLATELET VOLUME 8.4 FL (7.0-11.0); MONO % 9.7 % (0.0-8.0); MONOCYTE # 0.7 TH/MM3 (0-0.9); NEUT % 64.6 % (16.0-70.0); PLATELET COUNT 334 TH/MM3 (150-450); RED CELL DISTRIBUTION WIDTH 14.4 % (11.6-17.2); WHITE BLOOD COUNT 7.6 TH/MM3 (4.0-11.0)
--- NOTE | 2017-08-21 15:08 | RADRPT ---
EXAM DATE/TIME: 08/21/2017 14:37 [facility] COMPARISON: CT ABDOMEN & PELVIS W CONTRAST, July 20, 2017, 0:01. CT ABDOMEN & PELVIS W/O CONTRAST, January 19 017, 18:07. INDICATIONS : Patient complains of abdominal and pelvic pain. ORAL CONTRAST: No oral contrast ingested. RADIATION DOSE: 4.99 CTDIvol (mGy) MEDICAL HISTORY : urinary retention SURGICAL HISTORY : bladder cyst removed, suprapubic catheter ENCOUNTER: Initial ACUITY: 4 - 6 days PAIN SCALE: 8/10 LOCATION: abdomen/pelvic TECHNIQUE: Volumetric scanning of the abdomen and pelvis was performed. Using automated exposure control and ad justment of the mA and/or kV according to patient size, radiation dose was kept as low as reasonably achievable to obtain optimal diagnostic quality images. DICOM format image data is available electro nically for review and comparison. FINDINGS: The visualized right lower lung is clear. Suprapubic catheter in place. Diffuse concentric thickeni ng of the bladder wall similar to prior. 4 cm oblong low-density structure to the right of the urina ry bladder with an connection to the urinary bladder, characteristic of a bladder diverticulum, stabl e in appearance. No calcified renal stones and no evidence of hydronephrosis. The abdominal aorta is normal size. Vi sualized portion of the spleen and liver is normal for noncontrast technique. No calcified gallstone s. Gas is present in nondistended loops of small or large bowel with small bowel loops measuring up to 2.8 cm. A few air-fluid levels are seen in small bowel loops. CONCLUSION: 1. No acute findings. 2. Thickened bladder wall, right-sided bladder diverticulum, and suprapubic catheter, stable in appea bonnie. 3. Gas is seen diffusely throughout nondistended loops of small and large bowel. Jonh New MD on August 21, 2017 at 14:51 Board Certified Radiologist. This report was verified electronically.
[2017-08-21 15:24] LABS: ALBUMIN 3.6 GM/DL (3.4-5.0); ALT (GPT) 23 U/L (12-78); AST (GOT) 27 U/L (15-37); BICARBONATE 27.6 MEQ/L (21.0-32.0); BLOOD UREA NITROGEN 12 MG/DL (7-18); CHLORIDE 100 MEQ/L (98-107); CREATININE 1.08 MG/DL (0.60-1.30); GLOMERULAR FILTRATION RATE 84 ML/MIN (>89); GLUCOSE,RANDOM 84 MG/DL (74-106); SODIUM (NA) 134 MEQ/L (136-145)
[2017-08-21 15:26] LABS: ALKALINE PHOSPHATASE 118 U/L (45-117); TOTAL BILIRUBIN ADULT 0.9 MG/DL (0.2-1.0); TOTAL PROTEIN 8.4 GM/DL (6.4-8.2)
[2017-08-21] MEDS ORDERED: TRAM50 PO (16:58)
[2017-08-21] MEDS ORDERED: ZOFR4TAB3 SL (16:58)
[2017-08-21 17:01] VITALS: BP 146/72
== END 2017-08-21 17:02 | disposition home or self-care (01) ==
LOC: NEPD 11:08
DX: K43.9 Ventral hernia without obstruction or gangrene (principal); M19.011 Primary osteoarthritis, right shoulder; F17.200 Nicotine dependence, unspecified, uncomplicated; Z88.6 Allergy status to analgesic agent; Z79.899 Other long term (current) drug therapy
CPT/HCPCS: 74176; 80053; 83690; 85025; 99283

== ENCOUNTER 2017-10-02 15:04 | Emergency (ER) | payer OTHER ==
[~2017-10-02] VITALS: Ht 180.3 cm; Wt 77.3 kg
[~2017-10-02 15:04] MED LIST changes: -CIPR-9 PO; -NORC5TAB PO; -OXYC15TA PO; -PERC5TAB12 PO; +TRAM50 PO; +ZOFR4TAB3 SL
[2017-10-02 15:35] VITALS: BP 133/86; PULSE 84; RESP 18; TEMP 98; O2SAT 98
--- NOTE | 2017-10-02 17:38 | PD ---
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 Patient is not very clear with his history with me. Upon asking he said sometime this morning. When I asked him the exact time this happened he got annoyed but then answered around 10 or 11. He has been leaking urine through the suprapubic stoma. He is also complaining of suprapubic pain and cramps. Vital signs are stable. No history of fever or chills. 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 Patient could not remember the name of his urologist but the medical record says Dr. Carrera. Patient says that the catheter was last changed last month. It is done once a month. He smelling intensely of urine at this point. Patient seems uncomfortable. PFSH Past Medical History Narrative Medical List of his past medical, surgical, social and family history reviewed from the nursing note. 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 PER PT.) Asthma: No Autoimmune Disease: No Blood Disorders: No Heart Rhythm Problems: No Cancer: No Cardiovascular Problems: No High Cholesterol: No Chemotherapy: No Chest Pain: No Congestive Heart Failure: No COPD: No Cerebrovascular Accident: No Diabetes: No Diminished Hearing: No Endocrine: No GERD: No Glaucoma: No Genitourinary: Yes Hepatitis: No Hiatal Hernia: No Hypertension: No Immune Disorder: No Kidney Stones: No Neurologic: No Psychiatric: No Reproductive: No Respiratory: No Myocardial Infarction: No Radiation Therapy: No Renal Failure: No Seizures: No Thyroid Disease: No Ulcer: No Past Surgical History Abdominal Surgery: No AICD: No Ear Surgery: No Endocrine Surgery: No Eye Surgery: No Genitourinary Surgery: No Joint Replacement: No Oral Surgery: No Pacemaker: No Thoracic Surgery: No Other Surgery: Yes (Pt states suprapubic catheter) Social History Alcohol Use: Yes (4 pack a day) Tobacco Use: Yes (1/2 PPD FOR 30 YEARS) Substance Use: No (in the past) Allergies-Medications (Allergen,Severity, Reaction): Coded Allergies: ibuprofen (Verified Allergy, Mild, Nausea/Vomiting, 10/02/17) Comments List of his allergies reviewed from the nursing note. Reported Meds & Prescriptions Reported Meds & Active Scripts Active Bactrim DS (Sulfamethoxazole-Trimethoprim) 800-160 Mg Tab 1 Tab PO BID Narrative Medication List of his home medications reviewed from the nursing note. Review of Systems Except as stated in HPI: all other systems reviewed are Neg Physical Exam Narrative GENERAL: Awake, alert, anxious, agitated, moderate distress SKIN: Focused skin assessment warm/dry. HEAD: Atraumatic. Normocephalic. EYES: Pupils equal and round. No scleral icterus. No injection or drainage. ENT: No nasal bleeding or discharge. Mucous membranes pink and moist. NECK: Trachea midline. No JVD. CARDIOVASCULAR: Regular rate and rhythm. No murmur appreciated. RESPIRATORY: No accessory muscle use. Clear to auscultation. Breath sounds equal bilaterally. GASTROINTESTINAL: Abdomen soft, non-tender, nondistended. Hepatic and splenic margins not palpable. Suprapubic stoma with urine and some purulent material draining MUSCULOSKELETAL: No obvious deformities. No clubbing. No cyanosis. No edema. NEUROLOGICAL: Awake and alert. No obvious cranial nerve deficits. Motor grossly within normal limits. Normal speech. PSYCHIATRIC: Appropriate mood and affect; insight and judgment normal. Data Data Last Documented VS Vital Signs Date Time Temp Pulse Resp B/P (MAP) Pulse Ox O2 Delivery O2 Flow Rate FiO2 10/02/17 18:10 Room Air 10/02/17 15:35 98.0 84 18 133/86 (102) 98 Orders Orders Urinalysis - C+S If Indicated (10/02/17 18:33) Acetamin-Hydrocod 325-5 Mg ([place] 5-325 (10/02/17 18:45) Urine Culture (10/02/17 18:40) Sulfamet-Trimeth Ds 800-160 Mg (Bactrim (10/02/17 19:45) Ed Discharge Order (10/02/17 19:40) Labs Laboratory Tests Test 10/02/17 18:40 Urine Color LIGHT-YELLOW Urine Turbidity HAZY Urine pH 7.0 Urine Specific [place] 1.010 Urine Protein TRACE mg/dL Urine Glucose (UA) NEG mg/dL Urine Ketones NEG mg/dL Urine Occult Blood LARGE Urine Nitrite NEG Urine Bilirubin NEG Urine Urobilinogen LESS THAN 2.0 MG/DL Urine Leukocyte Esterase LARGE Urine RBC 76 /hpf Urine WBC /hpf Urine WBC Clumps MOD Urine Squamous Epithelial Cells <1 /hpf Urine Bacteria MANY /hpf Microscopic Urinalysis Comment CATH-CULTURE IND MDM Medical Decision Making Medical Screen Exam Complete: Yes Emergency Medical Condition: Yes Medical Record Reviewed: Yes Differential Diagnosis Suprapubic catheter falling out, urinary retention, UTI, cystitis Narrative Course 6:50 PM the suprapubic catheter was reinserted by me with much difficulty. Patient initially had a 16 [place] Cort[place] catheter which was almost impossible to be reinserted. Eventually it was successful inserting a 14 [place] coud. Bedside ultrasound done by me to confirm the position of the catheter. Please refer to my procedure note for these. Patient was uncomfortable during the procedure but overall tolerated it well. Pain medication has been ordered. Awaiting for a UA. 7:36 PM UA was strongly positive. Given patient's symptoms of bladder spasm and suprapubic pain and noticing some purulent drainage from the stoma I decided to treat him with antibiotics. I trended back his urine cultures and in the past he has grown E. coli and MRSA both sensitive to Bactrim. I put him on Bactrim. He will get 1 dose here and a prescription to go home with. I am ready to discharge the patient home. He will need to follow-up with Dr. Carrera. Patient has 50 mL's of urine in the leg bag so far. Procedures Procedure Narrative Emergency Department Pelvic ultrasound was performed with patient consent. The curvilinear probe was used in the transverse and sagittal views within the suprapubic region revealing bladder with urine and the bulb of the Cort[place] catheter visualized within the bladder. This confirmed the correct placement of the catheter. Insertion of suprapubic catheter: 16[place] catheter was tried to be inserted under sterile precautions but the stoma was too small and there was a failure. I moved down to a 14 [place] coud catheter and after much pressure and manipulation the catheter slid into the stoma and slowly passed further till urine was noted to come out from the other end of the catheter. The balloon was inflated with 10 mL's of sterile water. The catheter was attached to a leg bag. Patient overall tolerated the procedure well. There was minimum bleeding at the stoma site during the procedure. EKG Prior to Arrival: No Diagnosis Primary Impression: Suprapubic catheter dysfunction Qualified Codes: T83.010A - Breakdown (mechanical) of cystostomy catheter, initial encounter Additional Impression: Suprapubic catheter reinsertion Referrals: Eduardo Carrera MD 3 days Additional Instructions: Take the antibiotic as per the prescription direction. Please follow-up with your urologist by Thursday. Return to the emergency room if condition worsens or any other new concerns Med/Other Pt SpecificInfo: Prescription(s) given Scripts Sulfamethoxazole-Trimethoprim (Bactrim DS) 800-160 Mg Tab 1 TAB PO BID for Infection, #20 TAB 0 Refills Prov: Augustin Almaraz MD 10/02/17 Disposition: 01 DISCHARGE HOME Condition: Stable Augustin Almaraz MD Oct 02, 2017 17:38
[2017-10-02] MEDS ORDERED: ACETAMINOPHEN/HYDROcodone 325 MG/5 MG TAB PO ONE (18:45)
[2017-10-02 19:20] LABS: BACTERIA, URINE MANY /hpf; BILIRUBIN, URINE NEG (NEG); BLOOD, URINE LARGE (NEG); GLUCOSE,URINE NEG (NEG); KETONE, URINE NEG (NEG); NITRITE,URINE NEG (NEG); SQUAMOUS EPITHELIAL CELL URINE <1 /hpf (0-5); URINE COLOR LIGHT-YELLOW (YELLW/STRAW); URINE LEUKOCYTE ESTERASE LARGE (NEG); WHITE BLOOD CELL CLUMPS MOD
[2017-10-02] MEDS ORDERED: BACT800T5 PO (19:39)
[2017-10-02] MEDS ORDERED: SULFAMETHOXAZOLE-TRIMETHOPRIM DS 800-160 MG TAB PO ONE (19:45)
== END 2017-10-02 19:56 | disposition home or self-care (01) ==
LOC: NEPD 15:04
DX: T83.010A Breakdown (mechanical) of cystostomy catheter, initial encounter (principal); B96.1 Klebsiella pneumoniae [K. pneumoniae] as the cause of diseases classified elsewhere; M19.011 Primary osteoarthritis, right shoulder; F17.200 Nicotine dependence, unspecified, uncomplicated; Z88.6 Allergy status to analgesic agent
CPT/HCPCS: 51703; 81001; 87077; 87086; 87186